=== PATIENT | female | born 1935 | race Caucasian/White ===

== ENCOUNTER 2016-06-19 20:38 | Emergency (ER) | payer MEDICARE ==
--- NOTE | 2016-06-19 21:04 | UC ---
Cardiac HPI - HPI Summary HPI Summary: The patient comes in today for: 1. Chest pain/jaw pain/rapid pulse: Onset: 2 hours ago. Palliative/provocative: Nothing makes her symptoms better or worse. Quality: 'heartburn" retrosternal associated with left jaw pain. Region: Retrosternal and left jaw. Severity: 0/10 Time: The "heartburn and jaw pain" lasted 5-10 minutes. Associated symptoms: History of atrial fibrillation. Aspirin: Taken--81 mg When the daughter was there, the pulse on the pulse ox was 102. No previous heart disease. Shortness of breath:none Dizziness: None. The [id number] called her regular physician who told her to come in to have an EKG. * - History of Current Complaint Stated Complaint: RAPID PULSE,JAW TIGHTNESS Time Seen by Provider: 06/19/16 20:56 Hx Obtained From: Patient, Family/Administration Vice President - Allergy/Home Medications Allergies/Adverse Reactions: Allergies Allergy/AdvReac Type Severity Reaction Status Date / Time Codeine Allergy See Comment Verified 06/19/16 21:02 Granisetron [From Kytril] Allergy GI Upset Verified 06/19/16 21:02 Levofloxacin [From Levaquin] Allergy Rash Verified 06/19/16 21:02 Meperidine [From Demerol HCl] Allergy Vomiting Verified 06/19/16 21:02 Prochlorperazine Allergy Swelling Verified 06/19/16 21:02 [From Compazine] Promethazine [From Phenergan] Allergy GI Upset Verified 06/19/16 21:02 ANTINAUSEA MEDS Allergy Severe "MAKES ME Uncoded 06/19/16 21:02 SICK" FLOROQUINOLONES Allergy Severe TENDON Uncoded 06/19/16 21:02 RUPTURE OPIOIDS Allergy Severe "MAKES ME Uncoded 06/19/16 21:02 SICK" Home Medications: Home Medications Aspirin [Aspirin 81 MG TAB] 81 mg PO PRN 06/19/16 [History] Supplements* 06/19/16 [History] PMH/Surg Hx/FS Hx/Imm Hx Previously Healthy: No Endocrine History Of: Denies: Diabetes, Thyroid Disease, Hyperthyroidism, Hypothyroidism, Dyslipidemia Cardiovascular History Of: Denies: Cardiac Disorders, Hypertension, Pacemaker/ICD, Myocardial Infarction , Congestive Heart Failure, Atrial Fibrillation, Deep Vein Thrombosis, Bleeding Disorders Respiratory History Of: Denies: COPD, Asthma, Bronchitis, Pneumonia, Pulmonary Embolism GI/ History Of: Denies: Gastroesophageal Reflux, Ulcer, Gastrointestinal Bleed, Gall Bladder Disease, Kidney Stones, Diverticulitis, Renal Disease, Urosepsis Neurological History Of: Reports: Migraine Denies: TIA, CVA, Dementia, Seizures Psychological History Of: Denies: Anxiety, Depression, Bipolar Disorder, Schizophrenia, Post Traumatic Stress Disorder Cancer History Of: Reports: Colorectal Cancer Denies: Lung Cancer, Breast Cancer, Prostate Cancer, Cervical Cancer Other History Of: Negative For: HIV, Hepatitis B, Hepatitis C, Anticoagulant Therapy - Surgical History Surgical History: Yes Surgery Procedure, Year, and Place: Bowel Resection. Colon Surgery x 3. Hysterectomy, appendectomy, lymph node removed from abd. - Family History Known Family History: Negative: Cardiac Disease, Hypertension - Social History Alcohol Use: None Substance Use Type: None Smoking Status (MU): Never Smoked Tobacco - Immunization History Most Recent Tetanus Shot: within 10 years Review of Systems Constitutional: Negative Skin: Negative Eyes: Negative ENT: Negative Respiratory: Negative Cardiovascular: Negative Gastrointestinal: Negative Genitourinary: Negative All Other Systems Reviewed And Are Negative: Yes Physical Exam Triage Information Reviewed: Yes Appearance: Well-Appearing, No Pain Distress, Well-Nourished Vital Signs Reviewed: Yes Eyes: Positive: Conjunctiva Clear. Negative: Discharge ENT: Positive: Hearing grossly normal. Negative: Pharyngeal erythema, Nasal congestion, Nasal drainage, TM bulging, TM dull, TM red, Tonsillar swelling, Tonsillar exudate Dental: Negative: Gross Decay/Caries @, Dental Fracture @ Neck: Positive: Supple, Nontender, No Lymphadenopathy. Negative: Nuchal Rigidity Respiratory: Positive: Lungs clear, No respiratory distress, No accessory muscle use. Negative: Crackles, Wheezing Cardiovascular: Positive: RRR, No Murmur Abdomen Description: Positive: Nontender, No Organomegaly, Soft. Negative: Distended, Guarding Musculoskeletal: Positive: Strength Intact, ROM Intact, No Edema Neurological: Positive: Alert, Muscle Tone Normal Psychological: Positive: Age Appropriate Behavior, Consolable Skin: Negative: rashes, breakdown - Assessment/Plan Course Of Treatment: Patient and her [id number] were told that it is reassuring that she does not have any chest pain at this time, but am concerned that she may be at risk for CAD. The patient was told that I don't know for sure what caused her chest. pain. The patient was also told that there are many causes for chest pain--. some which are benign and some which are life- threatening. Furthermore, it was. mentioned that the life-threatening causes of chest pain can present with. minimal, atypical, or even no symptoms. Becasue of these facts and the fact. that we don't have here all the testing methods commonly used to assess chest. pain, and their timely resuts, my recommendation is for the patient to go to. the [facility] ([facility] [place]. However, she did not want to do this. She wanted to go home and return if she has a re- occurence of chest pain. - Clinical Impression Provider Diagnoses: Chest pain, resolved. Discharge - Discharge Plan Condition: Stable Disposition: AGAINST MEDICAL ADVICE Patient Education Materials: Angina (ED), Chest Pain (ED) Referrals: Zelda Ibarra MD [Primary Care Provider] - As Soon As Possible (If you are not going to the ER as recommended, please reconsider going to the ER if you have a re-occurence of chest or jaw pain. If you do well, please contact your primary are provider as soon as you can for a follow-up evaluation.)
[2016-06-19 21:51] VITALS: BP 189/103
== END 2016-06-19 22:10 | disposition left against medical advice (07) ==
LOC: UCEAST 20:38
DX: R07.9 Chest pain, unspecified (principal); Z88.3 Allergy status to other anti-infective agents; Z88.5 Allergy status to narcotic agent; Z79.82 Long term (current) use of aspirin; Z85.038 Personal history of other malignant neoplasm of large intestine
CPT/HCPCS: 93005; 99212; G0463

== ENCOUNTER 2016-06-19 22:27 | Emergency (ER) | payer MEDICARE ==
[2016-06-19] MEDS ORDERED: Aspirin EC TAB* 325 MG PO ONE (23:29)
[2016-06-19 23:41] LABS: Hematocrit 40 % (35-47); Hemoglobin 13.2 g/dl (12.0-16.0); Mean Corpuscular HGB Conc 33 g/dl (31-36); Mean Corpuscular Hemoglobin 29 pg (27-31); Mean Corpuscular Volume 88 fL (80-97); Mean Platelet Volume 9 um3 (7.4-10.4); Red Blood Count 4.55 10^6/ul (4.0-5.4); Red Cell Distribution Width 14 % (10.5-15); White Blood Count 7.2 10^3/ul (3.5-10.8)
[2016-06-20 00:02] LABS: Albumin 4.1 g/dL (3.2-5.2); BUN/Creatinine Ratio 34.4 (8-20); Calcium 9.3 mg/dL (8.6-10.3); EGFR African American 71.6 (>60); EGFR Non-African American 55.6 (>60); Globulin 3.1 g/dL (2-4); Potassium 3.9 mmol/L (3.5-5.0); Total Bilirubin 0.4 mg/dL (0.2-1.0); Total Protein 7.2 g/dL (6.4-8.9)
[2016-06-20 00:19] LABS: TSH (Thyroid Stimulating Horm) 3.55 mcIU/mL (0.34-5.60)
[2016-06-20 07:10] VITALS: BP 122/81
--- NOTE | 2016-06-20 07:32 | RAD ---
INDICATION: Chest pain. COMPARISON: Comparison is made with a prior chest x-ray study from July 30, 2010. TECHNIQUE: A portable view of the chest was obtained. FINDINGS: The heart is within normal limits in size. The thoracic aorta is mildly tortuous and unchanged. The lungs are clear. No pleural effusion is seen. IMPRESSION: NO EVIDENCE FOR ACUTE DISEASE.
--- NOTE | 2016-06-25 20:49 | ED ---
I, Ethel Up, scribed for Yazmin Yoon MD on 06/20/16 at 0557 . Progress - Progress Note Progress Note: Re-Eval at 0553 - Pt was suffering from heartburn, left jaw pain. Transferred from urgent care, evaluated in ED by A Riki, signed out at change of shift awaiting 2nd troponin. Pt is pain free at this time. Re-Eval at 0730 - Discussed neg lab results and plan to discharge pt home. Course/Dx - Diagnoses Provider Diagnoses: Chest pain in adult, Hypertension The documentation as recorded by the scribe, Ethel Up accurately reflects the service I personally performed and the decisions made by me, Yazmin Yoon MD.
== END 2016-06-20 08:03 | disposition home or self-care (01) ==
LOC: ED 22:27
DX: R07.9 Chest pain, unspecified (principal); I10 Essential (primary) hypertension
CPT/HCPCS: 36415; 71010; 80053; 83605; 83735; 84443; 84484; 85025; 85379; 93005; 99282

== ENCOUNTER 2016-08-27 19:15 | Emergency (ER) | payer MEDICARE ==
[2016-08-27] MEDS ORDERED: Ondansetron INJ* 2 MG/ML VIAL IV ONE (19:30)
[2016-08-27] MEDS ORDERED: NS 0.9% 500 ML BAG* 500 ML IV SCH (20:00)
[2016-08-27 20:08] LABS: Hematocrit 43 % (35-47); Hemoglobin 14.2 g/dl (12.0-16.0); Mean Corpuscular HGB Conc 33 g/dl (31-36); Mean Corpuscular Hemoglobin 30 pg (27-31); Mean Corpuscular Volume 90 fL (80-97); Mean Platelet Volume 9 um3 (7.4-10.4); Red Blood Count 4.74 10^6/ul (4.0-5.4); Red Cell Distribution Width 14 % (10.5-15); White Blood Count 14.3 10^3/ul (3.5-10.8)
[2016-08-27 20:24] LABS: Albumin 4.1 g/dL (3.2-5.2); BUN/Creatinine Ratio 22.9 (8-20); C Reactive Protein 9.08 mg/L (< 5.00); Calcium 9.8 mg/dL (8.6-10.3); EGFR African American 56.4 (>60); EGFR Non-African American 43.9 (>60); Potassium 3.9 mmol/L (3.5-5.0); Total Bilirubin 0.9 mg/dL (0.2-1.0); Total Protein 7.1 g/dL (6.4-8.9)
--- NOTE | 2016-08-27 22:04 | ED ---
sonia Castorena Timothy, scribed for Haja Gutierrez MD on 08/27/16 at 1944 . GI/ HPI - HPI Summary HPI Summary: Sabiha Cho is an 81 yo female presenting to [facility] with N/V/D and abd pain since 08/26/16 evening. She states she has vomited 3x today, and that she does not know how many times she has had diarrhea, but it has been very liquid and dark and running constantly. She states she was dizzy before vomiting, but that she is always dizzy before vomiting. She denies fever. She states this is not similar to her Sx when she had C. Diff. She has not self-medicated today. Her MHx includes migraine, GERd, colorectal CA, obstructive bowel. anastamosis, arthritis, chemotherapy, C. Diff. - History of Current Complaint Chief Complaint: EDNauseaVomitDiarrh Time Seen by Provider: 08/27/16 19:26 Stated Complaint: GENERAL ILLNESS Hx Obtained From: Patient Onset/Duration: Started Hours Ago, Still Present Timing: Constant Severity: Moderate Current Severity: Moderate Location of Pain: Diffuse Associated Signs and Symptoms: Positive: Dizziness - before vomiting, baseline, Nausea, Vomiting, Diarrhea - black, watery. Negative: Fever - Allergy/Home Medications Allergies/Adverse Reactions: Allergies Allergy/AdvReac Type Severity Reaction Status Date / Time Codeine Allergy See Comment Verified 06/19/16 22:35 Granisetron [From Kytril] Allergy GI Upset Verified 06/19/16 22:35 Levofloxacin [From Levaquin] Allergy Rash Verified 06/19/16 22:35 Meperidine [From Demerol HCl] Allergy Vomiting Verified 06/19/16 22:35 Prochlorperazine Allergy Swelling Verified 06/19/16 22:35 [From Compazine] Promethazine [From Phenergan] Allergy GI Upset Verified 06/19/16 22:35 ANTINAUSEA MEDS Allergy Severe "MAKES ME Uncoded 06/19/16 22:35 SICK" FLOROQUINOLONES Allergy Severe TENDON Uncoded 06/19/16 22:35 RUPTURE OPIOIDS Allergy Severe "MAKES ME Uncoded 06/19/16 22:35 SICK" PMH/Surg Hx/FS Hx/Imm Hx Endocrine/Hematology History: Denies: Hx Anticoagulant Therapy, Hx Diabetes, Hx Thyroid Disease Cardiovascular History: Denies: Hx Congestive Heart Failure, Hx Deep Vein Thrombosis, Hx Hypertension , Hx Myocardial Infarction, Hx Pacemaker/ICD Respiratory History: Denies: Hx Asthma, Hx Chronic Obstructive Pulmonary Disease (COPD), Hx Lung Cancer, Hx Pneumonia, Hx Pulmonary Embolism GI History: Reports: Hx Gastroesophageal Reflux Disease, Hx Obstructive Bowel - current dx, Other GI Disorders - anastamosis s/p surgery/impaction s/p c-diff Denies: Hx Gall Bladder Disease, Hx Gastrointestinal Bleed, Hx Ulcer, Hx Urosepsis History: Denies: Hx Kidney Stones, Hx Renal Disease Musculoskeletal History: Reports: Hx Arthritis Sensory History: Reports: Hx Contacts or Glasses, Hx Hearing Problem - left ear Opthamlomology History: Reports: Hx Contacts or Glasses Neurological History: Reports: Hx Migraine Denies: Hx Dementia, Hx Seizures, Hx Transient Ischemic Attacks (TIA) Psychiatric History: Denies: Hx Anxiety, Hx Depression, Hx Schizophrenia, Hx Bipolar Disorder, Hx Substance Abuse - Cancer History Cancer Type, Location and Year: 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 Colon Surgery x 3. Hysterectomy, appendectomy, lymph node removed from abd. Infectious Disease History: Yes Infectious Disease History: Reports: Hx Clostridium Difficile Denies: Hx Hepatitis, Hx Human Immunodeficiency Virus (HIV), Traveled Outside the [place] in Last 30 Days - Family History Known Family History: Positive: Cardiac Disease, Other - lymphoma Negative: Hypertension, Diabetes - Social History Alcohol Use: Occasionally Substance Use Type: Reports: None Hx Tobacco Use: No Smoking Status (MU): Former Smoker Review of Systems Constitutional: Negative Negative: Fever Eyes: Negative ENT: Negative Cardiovascular: Negative Respiratory: Negative Positive: Abdominal Pain, Vomiting, Diarrhea - black, watery, Nausea Genitourinary: Negative Musculoskeletal: Negative Skin: Negative Neurological: Other - dizziness before vomiting, baseline Psychological: Normal All Other Systems Reviewed And Are Negative: Yes Physical Exam Triage Information Reviewed: Yes Vital Signs On Initial Exam: Initial Vitals Temp Pulse Resp BP Pulse Ox 97.3 F 78 16 115/43 100 08/27/16 19:21 08/27/16 19:21 08/27/16 19:21 08/27/16 19:21 08/27/16 19:21 Vital Signs Reviewed: Yes Appearance: Positive: No Pain Distress, Thin Skin: Positive: Warm Head/Face: Positive: Normal Head/Face Inspection Eyes: Positive: IVANIA ENT: Positive: Hearing grossly normal Neck: Positive: Supple Cardiovascular: Positive: RRR Abdomen Description: Positive: Nontender, No Organomegaly, Soft Bowel Sounds: Positive: Present Musculoskeletal: Positive: Strength/ROM Intact Neurological: Positive: Alert, Oriented to Person Place, Time Psychiatric: Positive: Affect/Mood Appropriate - Rafiq Coma Scale Coma Scale Total: 15 Diagnostics - Vital Signs Vital Signs Temp Pulse Resp BP Pulse Ox 08/27/16 19:21 97.3 F 78 16 115/43 100 - Laboratory Lab Results: Lab Results 08/27/16 08/27/16 08/27/16 Range/Units 20:02 20:02 20:02 WBC 14.3 H (3.5-10.8) 10^3/ul RBC 4.74 (4.0-5.4) 10^6/ul Hgb 14.2 (12.0-16.0) g/dl Hct 43 (35-47) % MCV 90 (80-97) fL MCH 30 (27-31) pg MCHC 33 (31-36) g/dl RDW 14 (10.5-15) % Plt Count 196 (150-450) 10^3/ul MPV 9 (7.4-10.4) um3 Neut % (Auto) 88.3 H (38-83) % Lymph % (Auto) 4.7 L (25-47) % Kimble % (Auto) 6.0 (1-9) % Eos % (Auto) 0.6 (0-6) % Baso % (Auto) 0.4 (0-2) % Absolute Neuts (auto) 12.6 H (1.5-7.7) 10^3/ul Absolute Lymphs (auto) 0.7 L (1.0-4.8) 10^3/ul Absolute Monos (auto) 0.9 H (0-0.8) 10^3/ul Absolute Eos (auto) 0.1 (0-0.6) 10^3/ul Absolute Basos (auto) 0.1 (0-0.2) 10^3/ul Absolute Nucleated RBC 0 10^3/ul Nucleated RBC % 0 Sodium 138 (133-145) mmol/L Potassium 3.9 (3.5-5.0) mmol/L Chloride 104 (101-111) mmol/L Carbon Dioxide 26 (22-32) mmol/L Anion Gap 8 (2-11) mmol/L BUN 27 H (6-24) mg/dL Creatinine 1.18 H (0.51-0.95) mg/dL Est GFR ( Amer) 56.4 (>60) Est GFR (Non-Af Amer) 43.9 (>60) BUN/Creatinine Ratio 22.9 H (8-20) Glucose 148 H (70-100) mg/dL Lactic Acid 2.6 H* (0.5-2.0) mmol/L Calcium 9.8 (8.6-10.3) mg/dL Total Bilirubin 0.90 (0.2-1.0) mg/dL AST 17 (13-39) U/L ALT 10 (7-52) U/L Alkaline Phosphatase 99 (34-104) U/L C-Reactive Protein 9.08 H (< 5.00) mg/L Total Protein 7.1 (6.4-8.9) g/dL Albumin 4.1 (3.2-5.2) g/dL Globulin 3.0 (2-4) g/dL Albumin/Globulin Ratio 1.4 (1-3) Lipase 12 (11.0-82.0) U/L Result Diagrams: 08/27/16 20:02 08/27/16 20:02 Lab Statement: Any lab studies that have been ordered have been reviewed, and results considered in the medical decision making process. Re-Evaluation - Re-Evaluation First Eval Re-Evaluation Time: 22:49 Change: Improved Comment: Pt is tolerating PO fluids. GIGU Course/Dx - Course Assessment/Plan: Sabiha Cho is an 81 yo female presenting to [facility] with abd pain, N/V/D since last evening, with black, watery diarrhea. Pt medication list reviewed this vist. In the ED course she received zofran for nausea control and Iv fluids. After clinical examination and review of her lab studies , she will be discharged home with N/V/D with appropriate instructions. - Diagnoses Differential Diagnoses - Female: Diarrhea, Vomiting, Other - nausea Provider Diagnoses: Nausea vomiting and diarrhea Discharge - Discharge Plan Condition: Improved Disposition: HOME Patient Education Materials: Acute Nausea and Vomiting (ED), Acute Diarrhea (ED ) Referrals: Kehinde Cline MD [Primary Care Provider] - 2 Days Additional Instructions: Please follow up with your primary care physician regarding your visit to the emergency department tonight. Return to the emergency department with any new or recurring symptoms. The documentation as recorded by the sonia nolasco Timothy accurately reflects the service I personally performed and the decisions made by me, Haja Gutierrez MD.
[2016-08-27 22:59] LABS: Urine Bacteria 1+ (Absent); Urine Bilirubin Negative (Negative); Urine Glucose Negative (Negative); Urine Nitrite Negative (Negative)
[2016-08-27 23:47] VITALS: BP 125/70
== END 2016-08-27 23:35 | disposition home or self-care (01) ==
LOC: ED 19:15
DX: R42 Dizziness and giddiness (principal); R11.2 Nausea with vomiting, unspecified; R19.7 Diarrhea, unspecified
CPT/HCPCS: 36415; 80053; 81003; 81015; 83605; 83690; 85025; 86140; 87077; 87086; 87186; 99283

== ENCOUNTER 2017-05-21 20:14 | Emergency (ER) | payer MEDICARE ==
[2017-05-21] MEDS ORDERED: Acetaminophen TAB* 325 MG PO ONE (21:21)
[2017-05-21] MEDS ORDERED: NS 0.9% 1000 ML* 1,000 ML IV ONE (21:21)
--- NOTE | 2017-05-21 21:37 | RAD ---
HISTORY: Shortness of breath COMPARISONS: June 19, 2016 VIEWS: 1: frontal portable view of the chest at 9:31 PM FINDINGS: LINES AND TUBES: None. CARDIOMEDIASTINAL SILHOUETTE: The cardiomediastinal silhouette is stable. PLEURA: The costophrenic angles are sharp. No pleural abnormalities are noted. LUNG PARENCHYMA: The lungs are clear. ABDOMEN: The upper abdomen is clear. There is no subphrenic gas. BONES AND SOFT TISSUES: No bone or soft tissue abnormalities are noted. IMPRESSION: NO ACTIVE CARDIOPULMONARY DISEASE.
[2017-05-21 22:00] LABS: ABS Basophils 0 10^3/ul (0-0.2); ABS Eosinophils 0 10^3/ul (0-0.6); ABS Lymphocytes 0.8 10^3/ul (1.0-4.8); ABS Monocytes 0.5 10^3/ul (0-0.8); ABS Neutrophils 3.2 10^3/ul (1.5-7.7); ABS Nucleated RBC 0 10^3/ul; Hematocrit 38 % (35-47); Hemoglobin 12.9 g/dl (12.0-16.0); Lymphocyte % 16.9 % (25-47); Mean Corpuscular HGB Conc 34 g/dl (31-36); Mean Corpuscular Hemoglobin 30 pg (27-31); Mean Corpuscular Volume 88 fL (80-97); Nucleated Red Blood Cells % 0.1; Platelet Count 140 10^3/ul (150-450); Red Blood Count 4.37 10^6/ul (4.0-5.4); Red Cell Distribution Width 14 % (10.5-15); White Blood Count 4.6 10^3/ul (3.5-10.8)
[2017-05-21 22:09] LABS: INR 0.9 (0.77-1.02)
[2017-05-21 22:19] LABS: EGFR Non-African American 42.5 (>60)
[2017-05-21] MEDS ORDERED: Oseltamivir CAP* 75 MG CAP PO ONE (22:42)
[2017-05-21 22:45] LABS: Urine Appearance Clear; Urine Blood 3+ (Negative); Urine Color Yellow; Urine Ketones Negative (Negative); Urine Protein Negative (Negative); Urine Specific Gravity 1.013 (1.010-1.030); Urine Urobilinogen Negative (Negative)
--- NOTE | 2017-05-21 23:28 | ED ---
Ely Castorena Rebecca, scribed for Awa Villarreal MD on 05/21/17 at 2304 . Complex/Multi-Sys Presentation - HPI Summary HPI Summary: Pt is an 82 y/o F who present to ED c/o myalgias, SOB and generalized malaise since yesterday evening. Sx aggravated and alleviated by nothing. Pt denies fever. Pt additionally cites an episode of vomiting 2 weeks ago during which she was laying in bed and coughed. She reports concern over potentially having aspirated some of that material into her lungs. - History Of Current Complaint Chief Complaint: EDGeneral Time Seen by Provider: 05/21/17 21:02 Hx Obtained From: Patient Onset/Duration: Still Present Severity Currently: Moderate - 5/10 Location: Pain At: - Myalgias Aggravating Factor(s): Nothing Alleviating Factor(s): Nothing Associated Signs And Symptoms: Positive: SOB, Other - Generalized malaise - Allergies/Home Medications Allergies/Adverse Reactions: Allergies Allergy/AdvReac Type Severity Reaction Status Date / Time MS Codeine [Codeine] Allergy See Comment Verified 05/21/17 20:31 MS Granisetron [From Kytril] Allergy GI Upset Verified 05/21/17 20:31 MS Levofloxacin Allergy Rash Verified 05/21/17 20:31 [From Levaquin] MS Meperidine Allergy Vomiting Verified 05/21/17 20:31 [From Demerol HCl] MS Prochlorperazine Allergy Swelling Verified 05/21/17 20:31 [From Compazine] MS Promethazine Allergy GI Upset Verified 05/21/17 20:31 [From Phenergan] ANTINAUSEA MEDS Allergy Severe "MAKES ME Uncoded 05/21/17 20:31 SICK" FLOROQUINOLONES Allergy Severe TENDON Uncoded 05/21/17 20:31 RUPTURE OPIOIDS Allergy Severe "MAKES ME Uncoded 05/21/17 20:31 SICK" PMH/Surg Hx/FS Hx/Imm Hx Endocrine/Hematology History: Denies: Hx Anticoagulant Therapy, Hx Diabetes, Hx Thyroid Disease Cardiovascular History: Denies: Hx Congestive Heart Failure, Hx Deep Vein Thrombosis, Hx Hypertension , Hx Myocardial Infarction, Hx Pacemaker/ICD Respiratory History: Denies: Hx Asthma, Hx Chronic Obstructive Pulmonary Disease (COPD), Hx Lung Cancer, Hx Pneumonia, Hx Pulmonary Embolism GI History: Reports: Hx Gastroesophageal Reflux Disease, Hx Obstructive Bowel - current dx, Other GI Disorders - anastamosis s/p surgery/impaction s/p c-diff Denies: Hx Gall Bladder Disease, Hx Gastrointestinal Bleed, Hx Ulcer, Hx Urosepsis History: Denies: Hx Kidney Stones, Hx Renal Disease Musculoskeletal History: Reports: Hx Arthritis Sensory History: Reports: Hx Contacts or Glasses, Hx Hearing Problem - left ear Opthamlomology History: Reports: Hx Contacts or Glasses Neurological History: Reports: Hx Migraine Denies: Hx Dementia, Hx Seizures, Hx Transient Ischemic Attacks (TIA) Psychiatric History: Denies: Hx Anxiety, Hx Depression, Hx Schizophrenia, Hx Bipolar Disorder, Hx Substance Abuse - Cancer History Cancer Type, Location and Year: 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 Colon Surgery x 3. Hysterectomy, appendectomy, lymph node removed from abd. Infectious Disease History: No Infectious Disease History: Reports: Hx Clostridium Difficile Denies: Hx Hepatitis, Hx Human Immunodeficiency Virus (HIV), Traveled Outside the [place] in Last 30 Days - Family History Known Family History: Positive: Cardiac Disease, Other - lymphoma Negative: Hypertension, Diabetes - Social History Alcohol Use: Occasionally Substance Use Type: Reports: None Hx Tobacco Use: No Smoking Status (MU): Former Smoker Review of Systems Positive: Other - Generalized malaise. Negative: Fever Positive: Shortness Of Breath, Cough - 2 weeks ago Positive: Vomiting - 2 weeks ago Positive: Myalgia All Other Systems Reviewed And Are Negative: Yes Physical Exam - Summary Physical Exam Summary: VITAL SIGNS: Reviewed. GENERAL: ~Patient is an elderly female who is lying comfortable in the stretcher. Patient is not in any acute respiratory distress. HEAD AND FACE: No signs of trauma. No ecchymosis, hematomas or skull depressions. No sinus tenderness. EYES: PERRLA, EOMI x 2, No injected conjunctiva, no nystagmus. EARS: Hearing grossly intact. Ear canals and tympanic membranes are within normal limits. MOUTH: Oropharynx within normal limits. NECK: Supple, trachea is midline, no adenopathy, no JVD, no carotid bruit, no c- spine tenderness, neck with full ROM. CHEST: Symmetric, no tenderness at palpation LUNGS: Clear to auscultation bilaterally. No wheezing or crackles. CVS: Regular rate and rhythm, S1 and S2 present, no murmurs or gallops appreciated. ABDOMEN: Soft, non-tender. No signs of distention. No rebound no guarding, and no masses palpated. Bowel sounds are normal. EXTREMITIES: FROM in all major joints, no edema, no cyanosis or clubbing. NEURO: Alert and oriented x 3. No acute neurological deficits. Speech is normal and follows commands. SKIN: Dry and warm Triage Information Reviewed: Yes Vital Signs On Initial Exam: Initial Vitals Temp Pulse Resp BP Pulse Ox 99.3 F 105 16 142/54 98 05/21/17 20:20 05/21/17 20:20 05/21/17 20:20 05/21/17 20:20 05/21/17 20:20 Vital Signs Reviewed: Yes Diagnostics - Vital Signs Vital Signs Temp Pulse Resp BP Pulse Ox 05/21/17 22:30 20 126/91 05/21/17 22:03 86 20 163/92 97 05/21/17 22:00 91 20 99 05/21/17 21:30 77 19 118/94 98 05/21/17 21:07 71/32 05/21/17 20:20 99.3 F 105 16 142/54 98 - Laboratory Lab Results: Lab Results 05/21/17 05/21/17 05/21/17 Range/Units 21:35 21:35 21:35 WBC 4.6 (3.5-10.8) 10^3/ul RBC 4.37 (4.0-5.4) 10^6/ul Hgb 12.9 (12.0-16.0) g/dl Hct 38 (35-47) % MCV 88 (80-97) fL MCH 30 (27-31) pg MCHC 34 (31-36) g/dl RDW 14 (10.5-15) % Plt Count 140 L (150-450) 10^3/ul MPV 9.0 (7.4-10.4) um3 Neut % (Auto) 70.0 (38-83) % Lymph % (Auto) 16.9 L (25-47) % [place] % (Auto) 11.5 H (0-7) % Eos % (Auto) 1.0 (0-6) % Baso % (Auto) 0.6 (0-2) % Absolute Neuts (auto) 3.2 (1.5-7.7) 10^3/ul Absolute Lymphs (auto) 0.8 L (1.0-4.8) 10^3/ul Absolute Monos (auto) 0.5 (0-0.8) 10^3/ul Absolute Eos (auto) 0 (0-0.6) 10^3/ul Absolute Basos (auto) 0 (0-0.2) 10^3/ul Absolute Nucleated RBC 0 10^3/ul Nucleated RBC % 0.1 INR (Anticoag Therapy) 0.90 (0.77-1.02) APTT 45.5 H (26.0-36.3) seconds Sodium (133-145) mmol/L Potassium (3.5-5.0) mmol/L Chloride (101-111) mmol/L Carbon Dioxide (22-32) mmol/L Anion Gap (2-11) mmol/L BUN (6-24) mg/dL Creatinine (0.51-0.95) mg/dL Est GFR ( Amer) (>60) Est GFR (Non-Af Amer) (>60) BUN/Creatinine Ratio (8-20) Glucose (70-100) mg/dL Lactic Acid (0.5-2.0) mmol/L Calcium (8.6-10.3) mg/dL Total Bilirubin (0.2-1.0) mg/dL AST (13-39) U/L ALT (7-52) U/L Alkaline Phosphatase (34-104) U/L Troponin I (<0.04) ng/mL C-Reactive Protein (< 5.00) mg/L B-Natriuretic Peptide 32 ( - 100) pg/mL Total Protein (6.4-8.9) g/dL Albumin (3.2-5.2) g/dL Globulin (2-4) g/dL Albumin/Globulin Ratio (1-3) Urine Color Urine Appearance Urine pH (5-9) Ur Specific [place] (1.010-1.030) Urine Protein (Negative) Urine Ketones (Negative) Urine Blood (Negative) Urine Nitrate (Negative) Urine Bilirubin (Negative) Urine Urobilinogen (Negative) Ur Leukocyte Esterase (Negative) Urine WBC (Auto) (Absent) Urine RBC (Auto) (Absent) Ur Squamous Epith Cells (Absent) Urine Bacteria (Absent) Urine Glucose (Negative) Influenza A (Rapid) (Negative) Influenza B (Rapid) (Negative) 05/21/17 05/21/17 05/21/17 Range/Units 21:35 21:35 22:16 WBC (3.5-10.8) 10^3/ul RBC (4.0-5.4) 10^6/ul Hgb (12.0-16.0) g/dl Hct (35-47) % MCV (80-97) fL MCH (27-31) pg MCHC (31-36) g/dl RDW (10.5-15) % Plt Count (150-450) 10^3/ul MPV (7.4-10.4) um3 Neut % (Auto) (38-83) % Lymph % (Auto) (25-47) % [place] % (Auto) (0-7) % Eos % (Auto) (0-6) % Baso % (Auto) (0-2) % Absolute Neuts (auto) (1.5-7.7) 10^3/ul Absolute Lymphs (auto) (1.0-4.8) 10^3/ul Absolute Monos (auto) (0-0.8) 10^3/ul Absolute Eos (auto) (0-0.6) 10^3/ul Absolute Basos (auto) (0-0.2) 10^3/ul Absolute Nucleated RBC 10^3/ul Nucleated RBC % INR (Anticoag Therapy) (0.77-1.02) APTT (26.0-36.3) seconds Sodium 134 (133-145) mmol/L Potassium 3.7 (3.5-5.0) mmol/L Chloride 102 (101-111) mmol/L Carbon Dioxide 24 (22-32) mmol/L Anion Gap 8 (2-11) mmol/L BUN 29 H (6-24) mg/dL Creatinine 1.21 H (0.51-0.95) mg/dL Est GFR ( Amer) 54.7 (>60) Est GFR (Non-Af Amer) 42.5 (>60) BUN/Creatinine Ratio 24.0 H (8-20) Glucose 111 H (70-100) mg/dL Lactic Acid 1.2 (0.5-2.0) mmol/L Calcium 9.1 (8.6-10.3) mg/dL Total Bilirubin 0.30 (0.2-1.0) mg/dL AST 17 (13-39) U/L ALT 7 (7-52) U/L Alkaline Phosphatase 86 (34-104) U/L Troponin I 0.01 (<0.04) ng/mL C-Reactive Protein 9.80 H (< 5.00) mg/L B-Natriuretic Peptide ( - 100) pg/mL Total Protein 6.5 (6.4-8.9) g/dL Albumin 3.6 (3.2-5.2) g/dL Globulin 2.9 (2-4) g/dL Albumin/Globulin Ratio 1.2 (1-3) Urine Color Urine Appearance Urine pH (5-9) Ur Specific [place] (1.010-1.030) Urine Protein (Negative) Urine Ketones (Negative) Urine Blood (Negative) Urine Nitrate (Negative) Urine Bilirubin (Negative) Urine Urobilinogen (Negative) Ur Leukocyte Esterase (Negative) Urine WBC (Auto) (Absent) Urine RBC (Auto) (Absent) Ur Squamous Epith Cells (Absent) Urine Bacteria (Absent) Urine Glucose (Negative) Influenza A (Rapid) Negative (Negative) Influenza B (Rapid) Positive A (Negative) 05/21/17 Range/Units 22:33 WBC (3.5-10.8) 10^3/ul RBC (4.0-5.4) 10^6/ul Hgb (12.0-16.0) g/dl Hct (35-47) % MCV (80-97) fL MCH (27-31) pg MCHC (31-36) g/dl RDW (10.5-15) % Plt Count (150-450) 10^3/ul MPV (7.4-10.4) um3 Neut % (Auto) (38-83) % Lymph % (Auto) (25-47) % [place] % (Auto) (0-7) % Eos % (Auto) (0-6) % Baso % (Auto) (0-2) % Absolute Neuts (auto) (1.5-7.7) 10^3/ul Absolute Lymphs (auto) (1.0-4.8) 10^3/ul Absolute Monos (auto) (0-0.8) 10^3/ul Absolute Eos (auto) (0-0.6) 10^3/ul Absolute Basos (auto) (0-0.2) 10^3/ul Absolute Nucleated RBC 10^3/ul Nucleated RBC % INR (Anticoag Therapy) (0.77-1.02) APTT (26.0-36.3) seconds Sodium (133-145) mmol/L Potassium (3.5-5.0) mmol/L Chloride (101-111) mmol/L Carbon Dioxide (22-32) mmol/L Anion Gap (2-11) mmol/L BUN (6-24) mg/dL Creatinine (0.51-0.95) mg/dL Est GFR ( Amer) (>60) Est GFR (Non-Af Amer) (>60) BUN/Creatinine Ratio (8-20) Glucose (70-100) mg/dL Lactic Acid (0.5-2.0) mmol/L Calcium (8.6-10.3) mg/dL Total Bilirubin (0.2-1.0) mg/dL AST (13-39) U/L ALT (7-52) U/L Alkaline Phosphatase (34-104) U/L Troponin I (<0.04) ng/mL C-Reactive Protein (< 5.00) mg/L B-Natriuretic Peptide ( - 100) pg/mL Total Protein (6.4-8.9) g/dL Albumin (3.2-5.2) g/dL Globulin (2-4) g/dL Albumin/Globulin Ratio (1-3) Urine Color Yellow Urine Appearance Clear Urine pH 5.0 (5-9) Ur Specific [place] 1.013 (1.010-1.030) Urine Protein Negative (Negative) Urine Ketones Negative (Negative) Urine Blood 3+ A (Negative) Urine Nitrate Negative (Negative) Urine Bilirubin Negative (Negative) Urine Urobilinogen Negative (Negative) Ur Leukocyte Esterase Negative (Negative) Urine WBC (Auto) Trace(0-5/hpf) (Absent) Urine RBC (Auto) 3+(>10/hpf) A (Absent) Ur Squamous Epith Cells Present A (Absent) Urine Bacteria Absent (Absent) Urine Glucose Negative (Negative) Influenza A (Rapid) (Negative) Influenza B (Rapid) (Negative) Result Diagrams: 05/21/17 21:35 05/21/17 21:35 Lab Statement: Any lab studies that have been ordered have been reviewed, and results considered in the medical decision making process. - Radiology CXR Xray Interpretation: No Acute Changes - NO ACTIVE CARDIOPULMONARY DISEASE. ED physician reviewed this radiology report. Radiology Interpretation Completed By: Radiologist Complex Multi-Symp Course/Dx Assessment/Plan: Pt is an 82 y/o F who present to ED c/o myalgias, SOB and generalized malaise since yesterday evening. Pt denies fever. Pt additionally cites an episode of vomiting 2 weeks ago during which she was laying in bed and coughed. She reports concern over potentially having aspirated some of that material into her lungs. Bloodwork and UA were done. Troponin of 0.01. CXR reveals no acute findings. In the ED course, pt received Tylenol, fluids, and Tamiflu. She will be D/C to home with Dx of Influenza A with Rx for Tamiflu and a followup with her PCP. She understands and agrees. Allergies noted. - Diagnoses Provider Diagnoses: Influenza A Discharge - Sign-Out/Discharge Documenting (check all that apply): Discharge - Discharge Plan Condition: Stable Disposition: HOME Prescriptions: Oseltamivir CAP* [Tamiflu CAP*] 75 mg PO BID #10 cap Patient Education Materials: Influenza (ED) Referrals: Kehinde Cline MD [Primary Care Provider] - 3 Days Additional Instructions: RETURN TO EMERGENCY DEPARTMENT FOR ANY NEW OR WORSENING SYMPTOMS The documentation as recorded by the Ely nolasco Rebecca accurately reflects the service I personally performed and the decisions made by , Awa Villarreal MD.
[2017-05-21 23:41] VITALS: BP 125/65
== END 2017-05-21 23:44 | disposition home or self-care (01) ==
LOC: ED 20:14
DX: J10.1 Influenza due to other identified influenza virus with other respiratory manifestations (principal); R06.02 Shortness of breath; R53.81 Other malaise; K21.9 Gastro-esophageal reflux disease without esophagitis; G43.909 Migraine, unspecified, not intractable, without status migrainosus; Z88.1 Allergy status to other antibiotic agents; Z88.5 Allergy status to narcotic agent; Z88.8 Allergy status to other drugs, medicaments and biological substances; Z87.891 Personal history of nicotine dependence
CPT/HCPCS: 36415; 71045; 80053; 81003; 81015; 83605; 83880; 84484; 85025; 85610; 85730; 86140; 87040; 87086; 87502; 96360; 99283; A9270-GY

== ENCOUNTER 2017-07-21 03:45 | Inpatient (IN) | payer MEDICARE ==
[2017-07-21] MEDS ORDERED: NS 0.9% 1000 ML* 1,000 ML IV ONE (04:23)
[2017-07-21 05:39] LABS: ABS Basophils 0 10^3/ul (0-0.2); ABS Eosinophils 0 10^3/ul (0-0.6); ABS Lymphocytes 0.6 10^3/ul (1.0-4.8); ABS Monocytes 0.4 10^3/ul (0-0.8); ABS Neutrophils 8.3 10^3/ul (1.5-7.7); ABS Nucleated RBC 0 10^3/ul; Eosinophil % 0.5 % (0-6); Hematocrit 38 % (35-47); Hemoglobin 12.8 g/dl (12.0-16.0); Lymphocyte % 6.4 % (25-47); Mean Corpuscular HGB Conc 34 g/dl (31-36); Mean Corpuscular Hemoglobin 29 pg (27-31); Mean Corpuscular Volume 87 fL (80-97); Mean Platelet Volume 8.9 um3 (7.4-10.4); Nucleated Red Blood Cells % 0; Platelet Count 177 10^3/ul (150-450); Red Blood Count 4.35 10^6/ul (4.0-5.4); Red Cell Distribution Width 15 % (10.5-15); White Blood Count 9.4 10^3/ul (3.5-10.8)
[2017-07-21 05:50] LABS: EGFR Non-African American 59.8 (>60)
[2017-07-21 06:13] LABS: Urine Appearance Clear; Urine Blood Negative (Negative); Urine Color Straw; Urine Ketones Trace (Negative); Urine Protein Negative (Negative); Urine Specific Gravity 1.005 (1.010-1.030); Urine Urobilinogen Negative (Negative)
[2017-07-21] MEDS ORDERED: Ondansetron INJ* 2 MG/ML VIAL IV ONE (08:35)
[2017-07-21] MEDS ORDERED: Ondansetron INJ* 2 MG/ML VIAL IV PRN (08:37)
--- NOTE | 2017-07-21 08:38 | ED ---
IJustine Gabriel, scribed for Anam Coreas MD on 07/21/17 at 0806 . Progress - Progress Note Progress Note: This patient is a 82 female c/o ABD that was signed out from Dr. Santacruz awaiting CT ABD/pelvis result. CT reveals per radiology, findings may represent enteritis with associated partial or early small bowel obstruction. Re-Evaluation - Re-Evaluation First Eval Re-Evaluation Time: 08:04 Change: Improved Comment: The patient's pain has resolved and she states she is feeling better. She does sill report nausea. Course/Dx - Course Course Of Treatment: This patient was signed out by Dr. Conde to follow the abdomen and pelvic CT since he thinks that the patient has a small bowel obstruction. Abdomen pelvis CT impression shows a partial or early small bowel obstruction. At this time I discussed my findings and results with Dr. Worthy works at the patient for admission. The patient is hemodynamically stable and she is alert and oriented 3. - Diagnoses Provider Diagnoses: Partial small bowel obstruction - Provider Notifications Discussed Care Of Patient With: Wanda Nicolas Time Discussed With Above Provider: 08:34 Instructed by Provider To: Admit As Observation Discharge - Sign-Out/Discharge Documenting (check all that apply): Discharge/Admit/Transfer - Discharge Plan Condition: Fair Disposition: ADMITTED TO [facility] Referrals: Kehinde Cline MD [Primary Care Provider] - - Billing Disposition and Condition Condition: FAIR Disposition: [facility] [place] The documentation as recorded by the Justine nolasco Gabriel accurately reflects the service I personally performed and the decisions made by me, Anam Coreas MD.
--- NOTE | 2017-07-21 09:08 | RAD ---
CLINICAL HISTORY: Right lower quadrant pain. Relevant surgical history includes bowel resection, "colon surgery x3", hysterectomy and appendectomy COMPARISON: CT abdomen pelvis dated June 04, 2012 TECHNIQUE: Noncontrast CT examination of the abdomen and pelvis from the lung bases through the initial tuberosities. FINDINGS: VISUALIZED LUNG BASES: The visualized lung bases are grossly clear. There is no pleural effusion. ABDOMEN AND PELVIS: Evaluation of the solid organs and vasculature is limited without intravenous contrast. In the right lobe of the liver there is an 8 mm hypoattenuating focus with a Hounsfield unit compatible with a cyst. The liver is otherwise homogenous in attenuation. The spleen, pancreas and adrenal glands are grossly normal in appearance. The gallbladder is normal. The right kidney is normal in appearance without focal mass, calcification or signs of hydronephrosis. There is been interval development of a moderate amount of left-sided hydronephrosis. No obstructing stone or mass lesion is seen to account for this appearance. In the left hemiabdomen the small bowel is dilated up to 2.7 cm in diameter. There are scattered air-fluid levels but no nondependent gas is identified the wall. More distally the small bowel is decompressed. There is gas and stool seen in the remaining colon. There is no free intraperitoneal air. There is no gross retroperitoneal or mesenteric lymphadenopathy. The uterus is surgically absent. The coarsely calcified abdominal aorta and iliac arteries are normal in course and diameter. There is dextroconvex curvature of the lumbar spine with the apex at the L1 vertebral body. Multilevel degenerative change of the lumbar spine includes loss of intervertebral disc height and multilevel vacuum disc phenomenon. In the subcutaneous tissue of the left gluteus is a 9 mm hypoattenuating focus with a Hounsfield unit greater than that of a simple cyst (image 72 of 81). IMPRESSION: 1. In the left hemiabdomen there are top normal loops of small bowel measuring up to 2.6 cm in diameter exhibiting scattered air-fluid levels with decompressed small bowel more distally and gas and stool in the remaining colon. The appearance of the bowel is not substantially different from the June 04, 2012 CT examination. The patient could be experiencing exacerbation of a chronic partial small bowel obstruction. 2. Interval development of left renal hydronephrosis that was not seen on the 2013 CT examination without identification of a renal calculus or other obstructing lesion. Please correlate to signs and symptoms of obstructive uropathy. 3. Likely small sebaceous cysts at the left perirectal buttock. Please correlate to physical examination and any focal tenderness. 4. Chronic, degenerative and iatrogenic findings as described in the body of the report unlikely to be directly responsible for the patient's current presentation..
[2017-07-21] MEDS: NS 0.9% 1000 ML* 1,000 ML IV SCH ×2 (10:12→19:59)
--- NOTE | 2017-07-21 12:25 | RAD ---
INDICATION: Left-sided hydronephrosis COMPARISON: CT July 21, 2017 TECHNIQUE: Longitudinal and transverse scans of the kidneys were obtained. Examination is limited due to bowel gas. FINDINGS: Left kidney: The left kidney is diminutive measuring 8.1 x 4.6 x 3.9 cm. There is no focal parenchymal mass There is moderate hydronephrosis. Other: A left ureteral jet is not documented IMPRESSION: MODERATE LEFT-SIDED HYDRONEPHROSIS. ABSENT LEFT URETERAL JET
[2017-07-21] MEDS ORDERED: hydrALAZINE IV* 20 MG/ML VIAL IV SLOW PU PRN (13:06)
[2017-07-21] MEDS: Heparin VIAL(*) 5000 UNITS/ML VIAL (FIVE THOUSAND) SUBCUT SCH ×2 (13:37→21:49)
[2017-07-21] MEDS: Pantoprazole IV* 40 MG IV SCH (13:38)
--- NOTE | 2017-07-21 14:08 | HP ---
HISTORY AND PHYSICAL: DATE OF ADMISSION: 07/21/17 PROVIDER: Frank Green NP ATTENDING PHYSICIAN: Dr. Pathak * (report dictated by Frank Green NP). PRIMARY CARE PROVIDER: Dr. Saez. CHIEF COMPLAINT: Abdominal pain and vomiting. HISTORY OF PRESENT ILLNESS: Ms. Cho is an 82-year-old female with a past medical history of metastatic colon cancer with mets to the lung and liver in 1998, who is status post colon resection with chemo and radiation, history of small bowel obstruction, history of recurrent C. diff and history of chronic back pain, who presents to the emergency department with report of abdominal pain with nausea and vomiting starting last evening. Ms. Cho reports that yesterday morning she awoke with vague symptoms of not feeling well with some diffuse abdominal bloating and some twinges of "intestinal pain." She reports she went to bed last night, having faint nausea and only ate rice and drank tea last night before bed. She reports that she woke up around 11 p.m. with more diffuse upper abdominal pain radiating to her right lower quadrant. She states she was able to fall asleep at that time and then woke up at 1 a.m. and reports that she vomited profusely. Calling the ambulance and coming to the emergency department around 2 a.m. for further evaluation. She reports that she did vomit in the emergency department 2 times this morning, but has not vomited since approximately 8:30 this morning. She continues to have abdominal bloating and some diffuse upper quadrant pain, but states that overall this feels much better than when she arrived to the emergency department. She currently denies any nausea. No fevers or chills. She had a normal bowel movement yesterday morning and denies any recent diarrhea. She is currently not passing any flatulence. In the emergency department, she underwent an abdomen and pelvis CAT scan which shows "on the left lalita-abdomen, there are top normal loops of small bowel measuring up to 2.6 cm in diameter exhibiting scattered air fluid levels with decompressed small bowel more distally and gas and stool remaining in the colon. Appearance of the bowel is not essentially different from the June 2012 CT examination. The patient could be experiencing exacerbation of her chronic partial small bowel obstruction." As well, the CAT scan is showing an " interval development of a left renal hydronephrosis that was not seen in 2013 CAT scan without identification of renal calculus or other obstructing lesion." The patient reports that she had noted abnormal renal function last summer in which her primary was following. She did not have any imaging at that time and it was unclear why her creatinine had risen at that time per the patient. It is noted in May 2017, she had an elevated creatinine, but at that time she was seen in the emergency department and was diagnosed with influenza. Currently, her creatinine is normal on evaluation today. Her urinalysis is unremarkable. Currently, the patient's sdomqjad-eb-uag is sitting at the bedside, reports she looks much better than she did several hours ago. No other complaints at this time. The patient was diagnosed with influenza B in May 2017 in which several weeks later she was treated for an upper respiratory infection with a Z-Leland. She reports since that time she has been feeling well and has been at her baseline health which is fairly active. She continues to drive and grocery shops for herself and visits with family. PAST MEDICAL HISTORY: 1. History of stage IV colon cancer in 1998 with metastasis to the lung and liver, status post radiation, chemo, and bowel resection. Currently follows with Dr. Cho and is deemed as "cancer free." 2. History of recurrent C. diff. 3. Back pain. CURRENT MEDICATIONS: Multivitamin. ALLERGIES: LEVAQUIN, COMPAZINE, CODEINE, ZOFRAN, GRANISETRON, DEMEROL, PHENERGAN, ALL ANTINAUSEA MEDICATIONS, FLUOROQUINOLONES, OPIATES. FAMILY HISTORY: The patient's mother had a history of Hodgkin's lymphoma, at age 76. Father in his 60s due to heart disease. Her paternal grandmother in concentration camp. Maternal grandmother of pancreatic cancer in her 60s. SOCIAL HISTORY: A 30-year history of smoking up to 3 packs per day, quitting in 1986. Rare alcohol use. The patient is . She lives alone. Her healthcare proxy is Felisha Hoffmann, phone number [phone] or Elaina Rockwell, [phone]. The patient is a DNR. REVIEW OF SYSTEMS: A 14-point review of systems was performed. All the pertinent positives and negatives are mentioned in the history of present illness. Otherwise are negative. PHYSICAL EXAMINATION GENERAL APPEARANCE: A well-developed 82-year-old female, alert and oriented x3 , in no acute distress. VITAL SIGNS: Temperature 98.1, heart rate 80, respirations 18, pulse oximetry 100% on room air, and blood pressure 158/86. HEENT: Head is normocephalic, atraumatic. Pupils are equal and reactive to light. Oropharynx is clear. Dry mucous membranes. NECK: Supple. LUNGS: Clear to auscultation bilaterally. Good aeration throughout. CARDIAC: S1 and S2. Regular rate and rhythm. No murmur, rub, or gallop appreciated. No lower extremity edema noted. ABDOMEN: Slightly distended, soft, right lower quad tenderness. No rebound tenderness. No guarding. Hypoactive bowel sounds. MUSCULOSKELETAL: No clubbing, cyanosis, or edema. Full range of motion in all extremities. Strength is 5/5 throughout. SKIN: Warm, pink, and dry. On the left perirectal area, there is a small 5 to 7 mm raised area which is non-fluctuating and nontender. NEUROLOGIC: Cranial nerves II through XII grossly intact. No focal deficits noted. LABORATORY DATA AND DIAGNOSTIC STUDIES: WBC is 9.4, RBC 4.35, Hgb 12.8, HCT 38 , MCV 87, MCH 29, MCHC 34, platelet count 177. Sodium 139, potassium 3.8, chloride 107, carbon-dioxide 23, anion gap 9, BUN 23, creatinine 0.90, glucose 134, lactic acid 1.2, calcium 9.2. Total bilirubin 0.70, AST 15, ALT 8, alkaline phosphatase 101, total protein 6.4, albumin 3.4, lipase 16. CT abdomen and pelvis without contrast. Impression: 1. "In the left lalita-abdomen, there are top normal loops of small bowel measuring up to 2.6 cm in diameter exhibiting scattered air fluid levels with decompressed small bowel more distally and gas and stool in the remaining colon. The appearance of the bowel was not seemingly any different from the 06/13 CT examination. The patient could be experiencing exacerbation of chronic partial small bowel obstruction. 2. Interval development of left renal hydronephrosis that was not seen in 2013 CT scan without identification of renal calculus or obstructing lesion. Please correlate the signs and symptoms to obstructive uropathy. 3. Likely small sebaceous cyst at the left perirectal buttocks. Please correlate to physical examination for any focal tenderness. 4. Chronic degenerative and iatrogenic findings as described in the body of the report, unlikely to be directly responsive to the patient's current presentation." ASSESSMENT AND PLAN: Ms. Cho is an 82-year-old female with a past medical history of colon cancer with mets to the lung and liver, treated with colon resection, chemo and radiation, history of recurrent Clostridium difficile , history of small bowel obstruction and history of back pain, who presents to the emergency department with abdominal pain, nausea and vomiting, found to have a small bowel obstruction on CT. 1. Small bowel obstruction. The patient already appears to be doing better than admission. She has had no further nausea or vomiting since early this morning. She has not been given any antiemetics as she is allergic to all medications. She has hypoactive bowel sounds and reports no flatulence at this time. Plan for n.p.o. with bowel rest. Normal saline at 100 mL an hour. At this point, we will hold off on an NG tube and just continuing to monitor her symptoms. If she has recurrence of vomiting, we will place NG tube. There appears to be no reoccurrence of tumor on her CT scan. Most likely this is possible exacerbation of chronic small bowel obstruction. I have asked for the surgical team for a consultation which is pending at the time of dictation. 2. Left renal hydronephrosis. Unclear etiology at this point. On CT scan, there was no identification of renal calculus or other obstructing lesion. The urinalysis is unremarkable. The patient does report last August or October, she had an elevation in her creatinine and it was unknown what the cause, but she did not have any imaging at that time and that resolved on its own. We will obtain left renal ultrasound and if there is an abnormality, we will contact Urology to discuss. 3. Back pain, currently well controlled. 4. DVT prophylaxis. Heparin subcu. 5. History of colon cancer with mets to the liver and lung. Per patient, she follows with Dr. Cho in which she sees once a year. Her last followup visit was within the last few months and she has been deemed cancer free at this point. 6. Fluids, electrolytes, and nutrition. Normal saline at 100 mL an hour. N.p.o. 7. Code status. DNR. 8. Disposition. Inpatient with small bowel obstruction. TIME SPENT: Approximately 60 minutes was spent on this history and physical. FRANK GREEN, [place] [id number]/[facility] #: [id number] HERMELINDA
--- NOTE | 2017-07-21 20:38 | PN ---
Progress Note - Progress Note Date of Service: 07/21/17 SOAP: Subjective: Patient seen and examined Care reviewed with JIM Ramon She is feeing better and has no further nausea, pain almost gone Objective: Her abdomen is soft and slightly distended. Bowel sounds are present and hyperactive but not high pitched or tinkling. There is no tenderness CT scan reviewed Assessment: SBO most likely secondary to intra-abdominal adhesions, appears to be improving Plan: Continue NPO-hold off on NGT IVF Care plan discussed with patient.
--- NOTE | 2017-07-22 01:34 | CONS ---
CC: Dr. Saez at [facility]; Dr. Jan Cho; JIM Serrano; [facility].* SURGICAL CONSULT NOTE: DATE OF CONSULT: 07/21/17 ATTENDING SURGEON: Dr. Lalito Willett. CHIEF COMPLAINT: Small bowel obstruction. HISTORY OF PRESENT ILLNESS: This is an 82-year-old female status post multiple abdominal surgeries who began to experience upper abdominal discomfort in the afternoon and evening yesterday, 07/20/17. This was associated with bloating. She did have some white rice and tea in the evening and slept in her chair and then upon awakening around 11 p.m., vomited; pain continued to increase. She had further vomiting (undigested food) and came to the emergency department. She had had a normal bowel movement earlier in the day on 07/20/17. She denies any diarrhea. No hematemesis. No fever or chills. At the present time, she denies nausea or vomiting (has not vomited since 08:30 this morning) and also denies pain. She has been passing flatus during the day today. She denies abdominal distention at the present time. See below for past surgeries and medical history. PAST MEDICAL HISTORY: Colon cancer (underwent transverse colon resection and subsequent surgery for additional lymph node dissection, she was treated with various chemotherapy agents and she states radiation therapy as well). There are chart notes stating that she had liver and lung metastases though I am not certain if this was confirmed to be metastatic disease. She is followed regularly by Dr. Cho and has been told that she is currently cancer free. She has chronic low back pain related to combination of scoliosis, spinal stenosis, and lumbar degenerative disk disease. She has had at least 2 episodes of Clostridium difficile colitis. She is not absolutely certain when the last episode was, though I do not see anything in the chart record indicating positive C. diff. since 2013. She was admitted and treated conservatively for an SBO in 2013 with resolution. PAST SURGICAL HISTORY: Previous surgeries include colon surgeries as noted above, PowerPort placement and subsequent removal, total abdominal hysterectomy with BSO, and incidental appendectomy in 1994 for what turned out to be benign disease. CURRENT MEDICATIONS: Multivitamins. ALLERGIES: Multiple drug allergies (see details in her chart record). FAMILY HISTORY: As per the admission history and physical. SOCIAL HISTORY: As per the admission history and physical. REVIEW OF SYSTEMS: General: She reports approximately a 5-pound or slightly more weight loss over recent months. She did have a "stomach bug" back in May followed by an episode of influenza and then subsequent URI treated with Z -GRICEL, which she states took away her appetite, which has very slowly been coming back. Cardiovascular: She has been mildly hypertensive in the past, but not to the point of requiring treatment. She did have an echocardiogram done within the past year or so that she states was normal. Respiratory: No shortness of breath or cough. GI: As above per HPI. Last colonoscopy in [address] Steen with no plans for further surveillance. : The patient was noted some-time within the past year to have an elevated creatinine. She adapted a low protein diet and states that her creatinine normalized. There was no imaging done at that time. Endocrine: No diabetes or thyroid dysfunction. The remainder of review of systems is negative other than per the admission history and physical. PHYSICAL EXAM: Height 5 feet 3 inches, weight 130 pounds by history, temperature 98.7, blood pressure ranging from 140 to 217/69 to 114, pulse ranging from 72 to 117, respirations ranging from 16 to 20, room air saturation 98%. General: Well- nourished, well-developed female, in no acute distress. She appears comfortable. Skin: Warm and dry. No suspicious rashes or lesions though complete skin survey not performed. HEENT: Pupils equal, round, and reactive. EOMs intact. Conjunctivae pink. Oropharynx: Teeth in good repair. No intraoral lesions. Mucous membranes slightly dry. Neck: No lymphadenopathy in the cervical, supraclavicular or axillary regions. No palpable thyromegaly or masses. Heart: Regular rate and rhythm. No murmur appreciated. Lungs: Clear to auscultation. No rales or wheezes. Abdomen: Flat, nondistended. A well-healed midline incision. Bowel sounds present and relatively normal. Soft and nontender to palpation. No palpable masses or organomegaly. No tympany. No palpable abdominal wall or inguinal hernias. Genitalia and rectal not done. Back: No spinous process tenderness. She does have some deformity of the lumbar spine. Extremities: No edema. Feet are warm. Neurological: Grossly intact. Specific testing not performed. DIAGNOSTIC STUDIES/LAB DATA: Laboratory of note: White blood cell count 9400 with a slight left shift, hemoglobin 12.8. Her basic metabolic panel is normal. Glucose 134. Lactic acid normal at 1.2. Liver functions and lipase are normal. Urinalysis remarkable for specific gravity of 1.[address]. Noncontrast CT of the abdomen and pelvis was reviewed personally showing moderate left hydronephrosis (hydroureter) with no apparent stone, left- sided small bowel loops are dilated up to approximate diameter of 2.7 with decompressed distal small bowel loops. A renal ultrasound confirmed the presence of moderate left hydronephrosis and an absent ureteral jet. IMPRESSION: Possible small bowel obstruction, apparently resolving. PLAN/RECOMMENDATIONS: Case was discussed with Dr. Willett who will also review findings and plans. At this point, the patient may be followed clinically as she appears to be improving. The source of the hydronephrosis will be investigated further, otherwise medical management per the hospitalist team. JIM SERRANO [id number]/[facility] #: [id number] MTDD
[2017-07-22] MEDS: Heparin VIAL(*) 5000 UNITS/ML VIAL (FIVE THOUSAND) SUBCUT SCH ×3 (05:17→21:43)
[2017-07-22] MEDS: NS 0.9% 1000 ML* 1,000 ML IV SCH ×2 (05:31→15:36)
[2017-07-22 05:42] LABS: ABS Basophils 0 10^3/ul (0-0.2); ABS Eosinophils 0.2 10^3/ul (0-0.6); ABS Lymphocytes 1.4 10^3/ul (1.0-4.8); ABS Monocytes 0.5 10^3/ul (0-0.8); ABS Nucleated RBC 0 10^3/ul; Hematocrit 31 % (35-47); Hemoglobin 10.5 g/dl (12.0-16.0); Lymphocyte % 27.8 % (25-47); Mean Corpuscular HGB Conc 34 g/dl (31-36); Mean Corpuscular Hemoglobin 30 pg (27-31); Mean Corpuscular Volume 88 fL (80-97); Mean Platelet Volume 8.6 um3 (7.4-10.4); Nucleated Red Blood Cells % 0; Platelet Count 141 10^3/ul (150-450); Red Blood Count 3.54 10^6/ul (4.0-5.4); Red Cell Distribution Width 15 % (10.5-15); White Blood Count 5.2 10^3/ul (3.5-10.8)
[2017-07-22 06:01] LABS: EGFR Non-African American 70.5 (>60)
--- NOTE | 2017-07-22 09:01 | RAD ---
Indication: Reassess LEFT hydronephrosis. Comparison: July 21, 2017 ultrasound and July 21, 2017 CT. Technique: LEFT renal ultrasound. Report: Limited acoustic window to the LEFT kidney due to large body habitus and scoliosis. 9.7 x 4.8 x 3.6 cm LEFT kidney is remarkable for severe pelvicaliectasis without significant change compared with the July 21, 2017 CT. Normal cortical echogenicity. No conspicuous stones or focal renal lesions. No LEFT ureteral jet visible at the urinary bladder during 5 minutes of observation. The urinary bladder is largely decompressed. IMPRESSION: No significant change in severe LEFT hydronephrosis. No LEFT ureteral jet visible at the urinary bladder during 5 minutes of observation.
--- NOTE | 2017-07-22 13:09 | PN ---
Progress Note - Progress Note Date of Service: 07/22/17 SOAP: Subjective: Pt seen at 0815 this morning She feels much better-continues to pass flatus and no abdominal pain or N/V Objective: Temp Pulse Resp BP Pulse Ox 98.2 F 75 14 140/81 98 07/22/17 03:21 07/22/17 03:21 07/22/17 07:41 07/22/17 12:15 07/22/17 03:21 PEX: Abd is soft and slightly distended. Bowel sounds are present, hyperactive but not high pitched or tinkling. No tenderness. Assessment: SBO-appears to be resolving Plan: Start clear liquids, observe
[2017-07-22] MEDS: Pantoprazole IV* 40 MG IV SCH (14:02)
--- NOTE | 2017-07-22 17:18 | PN ---
Subjective Date of Service: 07/22/17 Interval History: Pt states she is feeling well. No abdominal pain after starting clears today. She does feel her abdomen is slightly distended. She is passing gas. No dizziness with walking. Objective Active Medications: Heparin Sodium (Porcine) (Heparin Vial(*)) 5,[address] [facility] Last Admin: 07/22/17 14:02 Dose: 5,000 units Hydralazine HCl (Apresoline Iv*) 5 mg IV SLOW PU Q6H PRN PRN Reason: BLOOD PRESSURE Last Admin: 07/21/17 15:38 Dose: 5 mg Sodium Chloride (Ns 0.9% 1000 Ml*) 1,000 mls @ 100 mls/hr IV PER RATE [facility] Last Admin: 07/22/17 15:36 Dose: 100 mls/hr Pantoprazole Sodium (Protonix Iv*) [address] [facility] Last Admin: 07/22/17 14:02 Dose: 40 mg Vital Signs - 8 hr 07/22/17 07/22/17 07/22/17 11:21 12:15 15:22 Temperature 98.2 F 97.6 F Pulse Rate 72 66 Respiratory 17 18 Rate Blood Pressure 190/95 140/81 144/83 (mmHg) O2 Sat by Pulse 98 100 Oximetry Oxygen Devices in Use Now: None Appearance: Elderly female sitting up in bed, NAD Eyes: No Scleral Icterus Ears/Nose/Mouth/Throat: Mucous Membranes Moist Respiratory: Symmetrical Chest Expansion and Respiratory Effort, Clear to Auscultation Cardiovascular: NL Sounds; No Murmurs; No JVD, RRR, No Edema Abdominal: NL Sounds; No Tenderness; No Distention Extremities: No Clubbing, Cyanosis Skin: No Nodules or Sclerosis Neurological: Alert and Oriented x 3 Result Diagrams: 07/22/17 05:10 07/22/17 05:10 Assess/Plan/Problems-Billing Ms Cho is an 82 yo F who has a h/o colon cancer in remission who presented to the ER wtih c/o abdominal pain and vomiting and was found to have a SBO. - Patient Problems (1) SBO (small bowel obstruction) Current Visit: Yes Status: Acute Code(s): K56.609 - UNSP INTESTNL OBST, UNSP TO PARTIAL VERSUS COMPLETE OBST SNOMED Code(s): 182792778 Comment: Pt is improving. Appreciate surgical input. Will continue clear liquid diet for tonight but if stable tomorrow can likely advance to fulls/ regular. (2) Hydronephrosis, left Current Visit: Yes Status: Acute Code(s): N13.30 - UNSPECIFIED HYDRONEPHROSIS SNOMED Code(s): 81044307 Comment: No ureteral jet seen on ultrasound with severe hydronephrosis. Will call for urology evaluation. Creatinine is normal. (3) DVT prophylaxis Current Visit: Yes Status: Acute Code(s): GLJ9573 - SNOMED Code(s): 783743128 Comment: SQ heparin (4) DNR (do not resuscitate) Current Visit: Yes Status: Acute
--- NOTE | 2017-07-22 19:28 | CONS ---
CC: Dr. Mendel Cline * GENITOURINARY CONSULTATION: DATE OF CONSULT: 07/22/17 LOCATION: She is an inpatient, room 334. REASON FOR CONSULT: I was asked by Harmony Fitzgerald NP from the hospitalist service to see this 82-year-old white female because of new onset of left hydronephrosis. HISTORY OF PRESENT ILLNESS: Mrs. Cho is an 82-year-old female with past history of colon cancer diagnosed in 1998 and found at that time, to have metastasis into the lung and her liver. She underwent colon resection followed by chemotherapy and radiation therapy and she did well and has no evidence of recurrent disease. She was admitted yesterday with symptoms of small bowel obstruction. She did not have any renal symptoms or flank pain. She had a CT of the abdomen and pelvis, which confirmed small bowel obstruction and there was a new finding of left hydroureteronephrosis with dilated ureter all the way to the level of the ureterovesical junction. There were no calculi seen and no pelvic masses to explain the hydronephrosis. The patient has had a CT of the abdomen and pelvis in June 2012 and at that time the left kidney and ureter looked normal. On this admission, she had a normal renal function with a creatinine of 0.9. Her urine analysis was negative. She denies any past or recent history of renal diseases or calculi and denies any episodes of flank pain. She denies any history of gross hematuria or urinary tract infections. Because the bladder looked a bit distended on the CT, she had a Rios catheter placed and there was minimal residual urine, and the Rios catheter was removed. She continues to void well. Renal ultrasound was obtained this morning and I was present at the time of the study was done. Moderate degree of left hydronephrosis is again noted. The distal ureter could not be well visualized because of overlying gas. On physical examination, she is an elderly white female, who is lying comfortably in bed. Her abdomen is soft and slightly distended, but nontender. She has no CVA tenderness. Clinically, the patient is improving and her small bowel obstruction seems to be resolving. IMPRESSION: 1. New onset of left hydroureteronephrosis in an 82-year-old female with past history of metastatic colon cancer treated with pelvic radiation therapy. 2. Resolving small bowel obstruction. PLAN: Considering the patient is asymptomatic and renal function is normal and that she is just recovering from a small bowel obstruction, no additional work- up is planned during this admission. I will follow her up as an outpatient after her discharge and will repeat the renal ultrasound. If the hydronephrosis persists, she will need work-up a cystoscopy, left retrograde pyelography, possible left ureteroscopy and a stent placement both at a diagnostic and therapeutic procedure. [id number]/[facility] #: [id number] MTDD
[2017-07-22] MEDS: cefTRIAXone(*) 1 GM in NS 0.9% 50 ML* 50 ML IVPB SCH (20:35)
[2017-07-22] MEDS: Lactobacillus Acidophilus* 1 TAB PO SCH (20:35)
--- NOTE | 2017-07-23 00:41 | CONS ---
CC: Dr. Cho; Dr. Harmony Saez * UROLOGY CONSULTATION: DATE OF CONSULT: 07/22/17 REQUESTING PHYSICIAN: Linda Maldonado DO DIAGNOSIS: Left hydronephrosis. HISTORY OF PRESENT ILLNESS: Sabiha Cho is an 82-year-old lady with a past history significant for metastatic colon cancer diagnosed in 1998, who was admitted for abdominal pain and nausea. She had a CT scan and 2 ultrasounds, 1 on 07/21/17 and 1 on 07/22/17, showing persistent severe left hydronephrosis with an absent left ureteral jet. She denies any left flank pain and has a normal creatinine on admission and there is no history of pyelonephritis or urolithiasis. Her past history is significant for the above-mentioned colon cancer, which at the time of diagnosis presented with metastatic lesions in the lung and liver and she had a transverse colon resection followed by chemotherapy and radiation and has actually been cancer free for the last 13 to 14 years. Her last CEA ( carcinoembryonic antigen) level in 2017 was 2. PAST MEDICAL HISTORY: Essentially unremarkable other than the history of the stage IV colon cancer. She also has a history of C. diff enterocolitis. MEDICATIONS ON ADMISSION: Multivitamins. ALLERGIES AND INTOLERANCES: COMPAZINE, LEVAQUIN, CODEINE, DEMEROL, PHENERGAN, CIPRO, and OPIATES. SOCIAL HISTORY: She has a 90-pack year smoking history (3 packs a day for 30 years) and she quit in 1986. REVIEW OF SYSTEMS: She denies any chest pain or shortness of breath. There are no symptoms related to neurologic or vascular symptoms. PHYSICAL EXAM: Reveals a pleasant healthy-appearing elderly lady who is alert and oriented. Blood pressure is 150/80, heart rate 78 per minute, temperature 98.2, respirations 16 per minute, oxygen saturation 100% on room air. Cardiovascular: Regular rate and rhythm. S1, S2. Lungs are clear bilaterally. Abdomen is soft and mild to moderately distended. There is no rebound tenderness or guarding. There is no costovertebral angle tenderness. DIAGNOSTIC STUDIES/LAB DATA: I reviewed the lab studies which today revealed a white count of 5.2, hemoglobin and hematocrit are 10.5 and 31 with a platelet count of 141,000. Sodium is 143, potassium is 3.6, BUN and creatinine are normal at 17 and 0.8 respectively. Lactic acid on admission was 1.2. Her urinalysis on 07/21/17 was negative for blood, nitrite, bilirubin and glucose and also for leukocyte esterase. I also reviewed all the imaging studies including the CAT scan and the 2 ultrasounds. On the CAT scan, she certainly has significant left hydronephrosis , cortical thickness appears reasonably well preserved and I could not identify a dilated ureter, although that is somewhat difficult because of the dilated bowel loops. IMPRESSION AND PLAN: I had a detailed discussion with Ms. Cho regarding the findings of left hydronephrosis (which was not present on the last CAT scan in 2012). The possibilities include a congenital ureteropelvic junction, which can manifest as late as this in life. The other possibilities include a stricture involving the left ureter (she had radiation after the diagnosis of colon cancer ) and the other possibility would be related to neoplasm for which I am requesting a repeat CEA level to be drawn. My recommendation is to try to obtain a CT urogram to delineate the etiology and the level of obstruction of the left ureter,and depending on the findings she may then require a left retrograde and left stent insertion. [id number]/CPS #: [id number] HERMELINDA
[2017-07-23] MEDS: NS 0.9% 1000 ML* 1,000 ML IV SCH (01:48)
[2017-07-23] MEDS: Heparin VIAL(*) 5000 UNITS/ML VIAL (FIVE THOUSAND) SUBCUT SCH ×2 (06:02→13:11)
[2017-07-23] MEDS ORDERED: Iohexol 300* (CONTRAST) 10 ML SDV IV ONE (08:42)
[2017-07-23] MEDS: Lactobacillus Acidophilus* 1 TAB PO SCH ×2 (09:36→23:36)
--- NOTE | 2017-07-23 09:38 | PN ---
Progress Note - Progress Note Date of Service: 07/23/17 SOAP: Subjective:admitted for SBO no abd pain,passing flatus;no n/v;had urogram CT this morning as ordered by Dr Ventura for L hydronephrosis workup [] Objective:afeb;VSS;abd:hypoactive,tinkling bs;soft;nontender;nondistended;no Left flank pain [] Assessment:SBO symptoms resolved;currently NPO [] Plan:followup per Dr Ventura,possible L ureteral stent placement later today; medical mgmt per Hosp []
--- NOTE | 2017-07-23 09:48 | RAD ---
CLINICAL HISTORY: Left hydronephrosis COMPARISON: Ultrasound dated July 22, 2017, CT dated July 21, 2017 TECHNIQUE: Multiple contiguous axial CT scans were obtained of the abdomen and pelvis both before and after the administration of nonionic intravenous contrast. Delayed images were obtained through the renal collecting system. Coronal and sagittal multiplanar reformations are submitted for review. 3-D volumetric reconstructions are submitted of the renal collecting system. FINDINGS: LUNG BASES: There is stable small right pleural effusion versus chronic pleural thickening. LIVER: There is stable low-attenuation lesion of liver most suggestive of hepatic cysts. BILE DUCTS: There is no common duct dilatation or intrahepatic biliary dilatation. There is stranding of the fat adjacent to the distal common duct best seen on axial image 73 of series 4. GALLBLADDER: The gallbladder is normal, without pericholecystic inflammatory change. PANCREAS: There is fatty atrophy of the pancreas SPLEEN: Normal in size and appearance. UPPER GI TRACT: Evaluation of the gastrointestinal tract is limited by incomplete gastric distention. The upper GI tract is unremarkable. SMALL BOWEL AND MESENTERY: The small bowel is normal in contour, course, and caliber. There is no obstruction or dilatation. COLON: The colon is normal in contour, course, caliber. There is no pericolonic inflammatory change. ADRENALS: Normal bilaterally. KIDNEYS: Again noted is severe left-sided pelvocaliectasis. There is no appreciable nephrolithiasis. The point of obstruction appears to be at the level of the left UPJ. There is a crossing left renal vein at this level. BLADDER: The bladder is smooth in contour. PELVIC ORGANS: The pelvic organs are not visualized. AORTA: There is calcific atherosclerotic disease of the abdominal aorta and its branches, without aneurysmal dilatation IVC: Unremarkable LYMPH NODES: There is no lymphadenopathy by size criteria. ABDOMINAL WALL: There is no evidence for abdominal wall hernia. BONES AND SOFT TISSUES: There is a scoliotic curvature of the spine. Degenerative changes are noted of the spine. OTHER: None IMPRESSION: 1. LEFT HYDRONEPHROSIS SUGGESTING LEFT UPJ OBSTRUCTION. THERE IS A CROSSING VESSEL AT THIS LEVEL. 2. ATHEROSCLEROSIS. 3. SCOLIOSIS. 4. THERE IS A SMALL RIGHT PLEURAL EFFUSION VERSUS CHRONIC PLEURAL THICKENING. 5. THERE IS MILD INFLAMMATORY CHANGE ALONG THE DISTAL COMMON BILE DUCT WITHOUT BILIARY DILATATION.
[2017-07-23] MEDS ORDERED: Famotidine IV* 10 MG/ML 2 ML (20 mg) IV ONE (10:44)
[2017-07-23] MEDS ORDERED: Buffered Lidocaine 0.9% SYRIN* 5 ML/SYR SYRINGE INTRADERM ONE (10:44)
[2017-07-23] MEDS: Pantoprazole IV* 40 MG IV SCH (13:17)
--- NOTE | 2017-07-23 13:31 | PN ---
Subjective Date of Service: 07/23/17 Interval History: HOSPITALIST PROGRESS NOTE Patient seen and examined at bedside. Care reviewed and d/w Radha Granda RN. Mrs. Cho feels better today. Abdominal pain, nausea and vomiting are resolved. Passing flatus but no BM so far. Denies flank pain or dysuria. Anxious about procedure later today. Family History: Unchanged from Admission Social History: Unchanged from Admission Past Medical History: Unchanged from Admission Objective Active Medications: Heparin Sodium (Porcine) (Heparin Vial(*)) 5,000 units SUBCUT Q8HR [facility] Last Admin: 07/23/17 13:11 Dose: Not Given Hydralazine HCl (Apresoline Iv*) 5 mg IV SLOW PU Q6H PRN PRN Reason: BLOOD PRESSURE Last Admin: 07/21/17 15:38 Dose: 5 mg Ceftriaxone Sodium 1 gm/ (Sodium Chloride) 50 mls @ 200 mls/hr IVPB Q24H [facility] Last Admin: 07/22/17 20:35 Dose: 200 mls/hr Lactated Ringer's (Lactated Ringers 1000 Ml Bag*) 1,000 mls @ 125 mls/hr IV PER RATE [facility] Last Admin: 07/23/17 12:47 Dose: 125 mls/hr Lactobacillus Rhamnosus (Lactobacillus Acidophilus*) 1 tab PO BID [facility] Last Admin: 07/23/17 09:36 Dose: 1 tab Lidocaine/Sodium Bicarbonate (Buffered Lidocaine 0.9% Syrin*) 0.2 ml INTRADERM ONCE ONE Stop: 07/23/17 10:45 Pantoprazole Sodium (Protonix Iv*) 40 mg IV Q24H [facility] Last Admin: 07/23/17 13:17 Dose: 40 mg Vital Signs - 8 hr 07/23/17 07/23/17 11:53 12:00 Temperature 97.3 F Pulse Rate 74 Respiratory 16 Rate Blood Pressure 138/72 (mmHg) O2 Sat by Pulse 99 Oximetry Oxygen Devices in Use Now: None Appearance: Pleasant elderly lady lying in bed in NAD. Eyes: No Scleral Icterus Ears/Nose/Mouth/Throat: Mucous Membranes Moist Neck: Trachea Midline Respiratory: Symmetrical Chest Expansion and Respiratory Effort, Clear to Auscultation Cardiovascular: RRR - Normal S1 and S2 Abdominal: - - Soft, NT, ND, BS+ but hypoactive Extremities: No Edema Neurological: Alert and Oriented x 3, NL Muscle Strength and Tone Result Diagrams: 07/22/17 05:10 07/22/17 05:10 Assess/Plan/Problems-Billing Assessment: Mrs Cho is an 82 yo F with a PMH of colon cancer in remission, recurrent C. diff, who presented to the ER wtih c/o abdominal pain and vomiting and was found to have a SBO. - Patient Problems (1) SBO (small bowel obstruction) Comment: - Much improved, passing flatus. - NPO for now for OR later today. - Appreciate surgical input. (2) Hydronephrosis, left Comment: - No ureteral jet seen on ultrasound with severe hydronephrosis. - CEA is 1.3. - No fever, no CVA tenderness, creatinine is normal, but CT urogram suggests left UPJ obstruction. Lengthy conversation with patient and daughter about diagnosis and options. They're agreeable with cystoscopy and possible stent placement. Dr. Ventura aware - plan for procedure later today. - Patient has no complaints of chest pain or dyspnea, EKG shows no ischemic changes. - Patient's RCRI is 0 predicting a risk 0.5% of cardiac complications. - Optimized for proposed procedure. (3) DVT prophylaxis Comment: - SQ heparin on hold for procedure. (4) DNR (do not resuscitate) Status and Disposition: Inpatient for management of SBO and hydronephrosis.
[2017-07-23] MEDS ORDERED: Dexamethasone IV* 4 MG/ML 1 ML (4 MG) ONE (17:18)
[2017-07-23] MEDS ORDERED: Metoclopramide IV* 5 MG/ML 2 ML VIAL ONE (17:26)
[2017-07-23] MEDS ORDERED: cefTRIAXone(*) 1 GM ADVAN/BAG ONE (18:31)
[2017-07-23] MEDS ORDERED: Propofol* 10 MG/ML 20 ML BTL IV PUSH ONE (18:37)
[2017-07-23] MEDS ORDERED: fentaNYL* 50 MCG/ML 2 ML VIAL (100 MCG VIAL) ONE (18:37)
[2017-07-23] MEDS ORDERED: Iohexol 180 (CONTRAST) 10 ML SDV IV ONE (19:08)
[2017-07-23] MEDS ORDERED: DiMENhydriNATE IV* 50 MG/ML VIAL IV PUSH PRN (19:37)
[2017-07-23] MEDS ORDERED: Naloxone* 0.4 MG/ML 1 ML VIAL IV PRN (19:37)
[2017-07-23] MEDS ORDERED: Acetaminophen TAB* 325 MG PO PRN (19:37)
[2017-07-23] MEDS ORDERED: hydrALAZINE IV* 20 MG/ML VIAL IV SLOW PU PRN (19:38)
[2017-07-23] MEDS ORDERED: hydrALAZINE IV* 20 MG/ML VIAL ONE (19:41)
--- NOTE | 2017-07-23 20:20 | RAD ---
INDICATION: Cystogram, LEFT retrograde pyelogram, and stent placement. COMPARISON: July 23, 2017 CT 17 seconds TECHNIQUE: 17 seconds fluoroscopy. FINDINGS: LEFT retrograde pyelogram demonstrates severe pelvicaliectasis and pyelosinus rupture. LEFT ureteral stent placed. IMPRESSION: Procedural fluoroscopy. CPT II Codes: G9500
[2017-07-23] MEDS ORDERED: Labetalol IV* 5 MG/ML 20 ML VIAL IV PUSH PRN (20:28)
[2017-07-23] MEDS ORDERED: Labetalol IV* 5 MG/ML 20 ML VIAL ONE (20:30)
[2017-07-23] MEDS: cefTRIAXone(*) 1 GM in NS 0.9% 50 ML* 50 ML IVPB SCH (21:44)
[2017-07-23] MEDS: amLODIPine TAB* 5 MG PO SCH (23:36)
--- NOTE | 2017-07-24 00:46 | ED ---
Charles Castorena Julia, scribed for Tavares Santacruz MD on 07/21/17 at 0408 . Abdominal Pain/Female - HPI Summary HPI Summary: This patient is a 82 year old F BIBA to [facility] accompanied by her daughter with a chief complaint of epigastric abdomen pain beginning yesterday evening the has gradually worsened with vomiting earlier this morning. She reports dizziness with vomiting. Pain is 4/10 in severity. Patient denies diarrhea, fever, chills, headaches, and CP. She reports a normal BM last night. PMHx of stage 4 metastatic colon cancer without reoccurrence since 2004. - History of Current Complaint Chief Complaint: EDAbdPain Stated Complaint: ABD PAIN Hx Obtained From: Patient Onset/Duration: Lasting Hours Pain Intensity: 4 Pain Scale Used: 0-10 Numeric Location: Epigastric Associated Signs and Symptoms: Positive: Dizzy, Nausea, Vomiting Allergies/Adverse Reactions: Allergies Allergy/AdvReac Type Severity Reaction Status Date / Time levofloxacin [From Levaquin] Allergy Intermediate Rash Verified 07/21/17 08:41 prochlorperazine Allergy Intermediate Swelling Verified 07/21/17 08:41 [From Compazine] codeine Allergy Mild Syncope Verified 07/21/17 08:41 ondansetron [From Zofran] Allergy See Comment Verified 07/21/17 09:10 granisetron [From Kytril] AdvReac Intermediate GI Upset Verified 07/21/17 08:41 meperidine [From Demerol] AdvReac Intermediate Vomiting Verified 07/21/17 08:41 promethazine [From Phenergan] AdvReac Intermediate GI Upset Verified 07/21/17 08 :41 ANTINAUSEA MEDS Allergy Severe "MAKES ME Uncoded 07/21/17 04:23 SICK" FLOROQUINOLONES Allergy Severe TENDON Uncoded 07/21/17 04:23 RUPTURE OPIOIDS Allergy Severe "MAKES ME Uncoded 07/21/17 04:23 SICK" PMH/Surg Hx/FS Hx/Imm Hx Endocrine/Hematology History: Denies: Hx Anticoagulant Therapy, Hx Diabetes, Hx Thyroid Disease Cardiovascular History: Denies: Hx Congestive Heart Failure, Hx Deep Vein Thrombosis, Hx Hypertension , Hx Myocardial Infarction, Hx Pacemaker/ICD Respiratory History: Denies: Hx Asthma, Hx Chronic Obstructive Pulmonary Disease (COPD), Hx Lung Cancer, Hx Pneumonia, Hx Pulmonary Embolism GI History: Reports: Hx Gastroesophageal Reflux Disease, Hx Obstructive Bowel, Other GI Disorders - anastamosis s/p surgery/impaction s/p c-diff Denies: Hx Gall Bladder Disease, Hx Gastrointestinal Bleed, Hx Ulcer, Hx Urosepsis History: Denies: Hx Kidney Stones, Hx Renal Disease Musculoskeletal History: Reports: Hx Arthritis Sensory History: Reports: Hx Contacts or Glasses, Hx Hearing Problem - left ear Opthamlomology History: Reports: Hx Contacts or Glasses Neurological History: Reports: Hx Migraine Denies: Hx Dementia, Hx Seizures, Hx Transient Ischemic Attacks (TIA) Psychiatric History: Denies: Hx Anxiety, Hx Depression, Hx Schizophrenia, Hx Bipolar Disorder, Hx Substance Abuse - Cancer History Cancer Type, Location and Year: 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 Colon Surgery x 3. Hysterectomy, appendectomy, lymph node removed from abd. Infectious Disease History: No Infectious Disease History: Reports: Hx Clostridium Difficile Denies: Hx Hepatitis, Hx Human Immunodeficiency Virus (HIV), Traveled Outside the [place] in Last 30 Days - Family History Known Family History: Positive: Cardiac Disease, Other - lymphoma Negative: Hypertension, Diabetes - Social History Occupation: Retired Lives: With Family Alcohol Use: Occasionally Substance Use Type: Reports: None Hx Tobacco Use: No Smoking Status (MU): Former Smoker Review of Systems Negative: Fever, Chills Negative: Chest Pain Positive: Abdominal Pain, Vomiting Neurological: Other - dizziness Negative: Headache All Other Systems Reviewed And Are Negative: Yes Physical Exam - Summary Physical Exam Summary: Appearance: Well-appearing, Well-nourished, lying in bed comfortably Skin: Warm, dry, no obvious rash Eyes: sclera anicteric, no conjunctiva pallor ENT: mucous membranes moist, pharynx appears normal Neck: Supple, nontender Respiratory: Clear to auscultation, no signs of respiratory distress Cardiovascular: Normal S1, S2. No murmurs. Normal distal pulses in tibial and radial bilaterally. Good femoral pulses bilaterally Abdomen: Soft, nontender, normal active bowel sounds present Musculoskeletal: Normal, Strength/ROM Intact Neurological: A&Ox3, awake and alert, mentation is normal, speech is fluent and appropriate Psychiatric: affect is normal, does not appear anxious or depressed Triage Information Reviewed: Yes Vital Signs On Initial Exam: Initial Vitals Temp Pulse Resp BP Pulse Ox 97.2 F 108 24 182/128 97 07/21/17 03:54 07/21/17 03:54 07/21/17 03:54 07/21/17 03:54 07/21/17 03:54 Vital Signs Reviewed: Yes Diagnostics - Vital Signs Vital Signs Temp Pulse Resp BP Pulse Ox 07/21/17 03:54 97.2 F 108 24 182/128 97 - Laboratory Lab Results: Lab Results 07/21/17 07/21/17 07/21/17 Range/Units 05:18 05:20 05:20 WBC 9.4 (3.5-10.8) 10^3/ul RBC 4.35 (4.0-5.4) 10^6/ul Hgb 12.8 (12.0-16.0) g/dl Hct 38 (35-47) % MCV 87 (80-97) fL MCH 29 (27-31) pg MCHC 34 (31-36) g/dl RDW 15 (10.5-15) % Plt Count 177 (150-450) 10^3/ul MPV 8.9 (7.4-10.4) um3 Neut % (Auto) 88.2 H (38-83) % Lymph % (Auto) 6.4 L (25-47) % [place] % (Auto) 4.5 (0-7) % Eos % (Auto) 0.5 (0-6) % Baso % (Auto) 0.4 (0-2) % Absolute Neuts (auto) 8.3 H (1.5-7.7) 10^3/ul Absolute Lymphs (auto) 0.6 L (1.0-4.8) 10^3/ul Absolute Monos (auto) 0.4 (0-0.8) 10^3/ul Absolute Eos (auto) 0 (0-0.6) 10^3/ul Absolute Basos (auto) 0 (0-0.2) 10^3/ul Absolute Nucleated RBC 0 10^3/ul Nucleated RBC % 0 Sodium 139 (139-145) mmol/L Potassium 3.8 (3.5-5.0) mmol/L Chloride 107 (101-111) mmol/L Carbon Dioxide 23 (22-32) mmol/L Anion Gap 9 (2-11) mmol/L BUN 23 (6-24) mg/dL Creatinine 0.90 (0.51-0.95) mg/dL Est GFR ( Amer) 76.9 (>60) Est GFR (Non-Af Amer) 59.8 (>60) BUN/Creatinine Ratio 25.6 H (8-20) Glucose 134 H (70-100) mg/dL Lactic Acid 1.2 (0.5-2.0) mmol/L Calcium 9.2 (8.6-10.3) mg/dL Total Bilirubin 0.70 (0.2-1.0) mg/dL AST 15 (13-39) U/L ALT 8 (7-52) U/L Alkaline Phosphatase 101 (34-104) U/L Total Protein 6.4 (6.4-8.9) g/dL Albumin 3.7 (3.2-5.2) g/dL Globulin 2.7 (2-4) g/dL Albumin/Globulin Ratio 1.4 (1-3) Lipase 16 (11.0-82.0) U/L Carcinoembryonic Ag (0.1-5.0) ng/mL Urine Color Urine Appearance Urine pH (5-9) Ur Specific [place] (1.010-1.030) Urine Protein (Negative) Urine Ketones (Negative) Urine Blood (Negative) Urine Nitrate (Negative) Urine Bilirubin (Negative) Urine Urobilinogen (Negative) Ur Leukocyte Esterase (Negative) Urine Glucose (Negative) 07/21/17 07/22/17 07/22/17 Range/Units 05:53 05:10 05:10 WBC 5.2 (3.5-10.8) 10^3/ul RBC 3.54 L (4.0-5.4) 10^6/ul Hgb 10.5 L (12.0-16.0) g/dl Hct 31 L (35-47) % MCV 88 (80-97) fL MCH 30 (27-31) pg MCHC 34 (31-36) g/dl RDW 15 (10.5-15) % Plt Count 141 L (150-450) 10^3/ul MPV 8.6 (7.4-10.4) um3 Neut % (Auto) 59.0 (38-83) % Lymph % (Auto) 27.8 (25-47) % [place] % (Auto) 9.3 H (0-7) % Eos % (Auto) 3.0 (0-6) % Baso % (Auto) 0.9 (0-2) % Absolute Neuts (auto) 3.0 (1.5-7.7) 10^3/ul Absolute Lymphs (auto) 1.4 (1.0-4.8) 10^3/ul Absolute Monos (auto) 0.5 (0-0.8) 10^3/ul Absolute Eos (auto) 0.2 (0-0.6) 10^3/ul Absolute Basos (auto) 0 (0-0.2) 10^3/ul Absolute Nucleated RBC 0 10^3/ul Nucleated RBC % 0 Sodium 143 (139-145) mmol/L Potassium 3.6 (3.5-5.0) mmol/L Chloride 116 H (101-111) mmol/L Carbon Dioxide 22 (22-32) mmol/L Anion Gap 5 (2-11) mmol/L BUN 17 (6-24) mg/dL Creatinine 0.78 (0.51-0.95) mg/dL Est GFR ( Amer) 90.7 (>60) Est GFR (Non-Af Amer) 70.5 (>60) BUN/Creatinine Ratio 21.8 H (8-20) Glucose 92 (70-100) mg/dL Lactic Acid (0.5-2.0) mmol/L Calcium 8.5 L (8.6-10.3) mg/dL Total Bilirubin (0.2-1.0) mg/dL AST (13-39) U/L ALT (7-52) U/L Alkaline Phosphatase (34-104) U/L Total Protein (6.4-8.9) g/dL Albumin (3.2-5.2) g/dL Globulin (2-4) g/dL Albumin/Globulin Ratio (1-3) Lipase (11.0-82.0) U/L Carcinoembryonic Ag (0.1-5.0) ng/mL Urine Color Straw Urine Appearance Clear Urine pH 8.0 (5-9) Ur Specific [place] 1.005 L (1.010-1.030) Urine Protein Negative (Negative) Urine Ketones Trace A (Negative) Urine Blood Negative (Negative) Urine Nitrate Negative (Negative) Urine Bilirubin Negative (Negative) Urine Urobilinogen Negative (Negative) Ur Leukocyte Esterase Negative (Negative) Urine Glucose Negative (Negative) 07/23/17 Range/Units 05:58 WBC (3.5-10.8) 10^3/ul RBC (4.0-5.4) 10^6/ul Hgb (12.0-16.0) g/dl Hct (35-47) % MCV (80-97) fL MCH (27-31) pg MCHC (31-36) g/dl RDW (10.5-15) % Plt Count (150-450) 10^3/ul MPV (7.4-10.4) um3 Neut % (Auto) (38-83) % Lymph % (Auto) (25-47) % [place] % (Auto) (0-7) % Eos % (Auto) (0-6) % Baso % (Auto) (0-2) % Absolute Neuts (auto) (1.5-7.7) 10^3/ul Absolute Lymphs (auto) (1.0-4.8) 10^3/ul Absolute Monos (auto) (0-0.8) 10^3/ul Absolute Eos (auto) (0-0.6) 10^3/ul Absolute Basos (auto) (0-0.2) 10^3/ul Absolute Nucleated RBC 10^3/ul Nucleated RBC % Sodium (139-145) mmol/L Potassium (3.5-5.0) mmol/L Chloride (101-111) mmol/L Carbon Dioxide (22-32) mmol/L Anion Gap (2-11) mmol/L BUN (6-24) mg/dL Creatinine (0.51-0.95) mg/dL Est GFR ( Amer) (>60) Est GFR (Non-Af Amer) (>60) BUN/Creatinine Ratio (8-20) Glucose (70-100) mg/dL Lactic Acid (0.5-2.0) mmol/L Calcium (8.6-10.3) mg/dL Total Bilirubin (0.2-1.0) mg/dL AST (13-39) U/L ALT (7-52) U/L Alkaline Phosphatase (34-104) U/L Total Protein (6.4-8.9) g/dL Albumin (3.2-5.2) g/dL Globulin (2-4) g/dL Albumin/Globulin Ratio (1-3) Lipase (11.0-82.0) U/L Carcinoembryonic Ag 1.3 (0.1-5.0) ng/mL Urine Color Urine Appearance Urine pH (5-9) Ur Specific [place] (1.010-1.030) Urine Protein (Negative) Urine Ketones (Negative) Urine Blood (Negative) Urine Nitrate (Negative) Urine Bilirubin (Negative) Urine Urobilinogen (Negative) Ur Leukocyte Esterase (Negative) Urine Glucose (Negative) Result Diagrams: 07/22/17 05:10 07/22/17 05:10 Lab Statement: Any lab studies that have been ordered have been reviewed, and results considered in the medical decision making process. Abdominal Pain Fem Course/Dx - Diagnoses Provider Diagnoses: Partial small bowel obstruction Discharge - Sign-Out/Discharge Documenting (check all that apply): Discharge/Admit/Transfer - Discharge Plan Condition: Fair Disposition: ADMITTED TO [facility] - Billing Disposition and Condition Condition: FAIR Disposition: [facility] [place] The documentation as recorded by the Charles nolasco Julia accurately reflects the service I personally performed and the decisions made by , Tavares Santacruz MD.
[2017-07-24] MEDS ORDERED: Acetaminophen TAB* 325 MG ONE (03:37)
[2017-07-24] MEDS: Acetaminophen TAB* 325 MG PO PRN ×3 (03:39→17:46)
[2017-07-24 06:19] LABS: ABS Basophils 0 10^3/ul (0-0.2); ABS Eosinophils 0 10^3/ul (0-0.6); ABS Lymphocytes 0.6 10^3/ul (1.0-4.8); ABS Monocytes 0.1 10^3/ul (0-0.8); ABS Neutrophils 3.3 10^3/ul (1.5-7.7); ABS Nucleated RBC 0 10^3/ul; Eosinophil % 0.2 % (0-6); Hematocrit 30 % (35-47); Hemoglobin 10.5 g/dl (12.0-16.0); Lymphocyte % 14.4 % (25-47); Mean Corpuscular HGB Conc 35 g/dl (31-36); Mean Corpuscular Hemoglobin 30 pg (27-31); Mean Corpuscular Volume 86 fL (80-97); Mean Platelet Volume 8.7 um3 (7.4-10.4); Nucleated Red Blood Cells % 0; Platelet Count 125 10^3/ul (150-450); Red Blood Count 3.51 10^6/ul (4.0-5.4); Red Cell Distribution Width 15 % (10.5-15); White Blood Count 4.1 10^3/ul (3.5-10.8)
[2017-07-24 06:38] LABS: EGFR Non-African American 67.5 (>60)
[2017-07-24] MEDS: amLODIPine TAB* 5 MG PO SCH (08:26)
[2017-07-24] MEDS: Lactobacillus Acidophilus* 1 TAB PO SCH ×2 (08:26→22:17)
--- NOTE | 2017-07-24 13:06 | PN ---
Subjective Date of Service: 07/24/17 Interval History: HOSPITALIST PROGRESS NOTE Patient seen and examined at bedside. Care reviewed and d/w Yon Benson RN. She feels better today. Denies abdominal pain, appetite is good, tolerating full liquids well with no nausea or vomiting. Passing flatus but no BM so far. Had tachycardia after procedure last night, but denies palpitations or chest pain. Later this AM she ambulated around the unit and became tachycardic again with dyspnea, but no chest pain or palpitations. Family History: Unchanged from Admission Social History: Unchanged from Admission Past Medical History: Unchanged from Admission Objective Active Medications: Acetaminophen (Tylenol Tab*) 650 mg PO Q4H PRN PRN Reason: FEVER/PAIN Last Admin: 07/24/17 03:39 Dose: 650 mg Amlodipine Besylate (Norvasc Tab*) 5 mg PO DAILY [facility] Last Admin: 07/24/17 08:26 Dose: 5 mg Hydralazine HCl (Apresoline Iv*) 5 mg IV SLOW PU Q6H PRN PRN Reason: BLOOD PRESSURE Last Admin: 07/21/17 15:38 Dose: 5 mg Ceftriaxone Sodium 1 gm/ (Sodium Chloride) 50 mls @ 200 mls/hr IVPB Q24H [facility] Last Admin: 07/23/17 21:44 Dose: 200 mls/hr Lactobacillus Rhamnosus (Lactobacillus Acidophilus*) 1 tab PO BID [facility] Last Admin: 07/24/17 08:26 Dose: 1 tab Naloxone HCl (Narcan*) 0.08 mg IV Q2M PRN PRN Reason: severe induced resp depression Stop: 07/24/17 19:36 Pantoprazole Sodium (Protonix Iv*) 40 mg IV Q24H [facility] Last Admin: 07/23/17 13:17 Dose: 40 mg Vital Signs - 8 hr 07/24/17 07/24/17 07/24/17 07:13 08:00 11:20 Temperature 97.4 F 97.7 F Pulse Rate 74 82 Respiratory 16 16 16 Rate Blood Pressure 149/68 120/45 (mmHg) O2 Sat by Pulse 98 98 100 Oximetry Oxygen Devices in Use Now: None Appearance: Pleasant elderly lady sitting up in bed in NAD. Eyes: No Scleral Icterus Ears/Nose/Mouth/Throat: Mucous Membranes Moist Neck: Trachea Midline Respiratory: Symmetrical Chest Expansion and Respiratory Effort, Clear to Auscultation Cardiovascular: RRR - Normal S1 and S2 Abdominal: NL Sounds; No Tenderness; No Distention Extremities: No Edema Neurological: Alert and Oriented x 3, NL Muscle Strength and Tone Result Diagrams: 07/24/17 06:06 07/24/17 06:06 Assess/Plan/Problems-Billing Assessment: Mrs Cho is an 82 yo F with a PMH of colon cancer in remission, recurrent C. diff, who presented to the ER wtih c/o abdominal pain and vomiting and was found to have a SBO. - Patient Problems (1) Tachycardia Comment: - Patient has tachycardia and dyspnea on exertion. Denies chest pain or palpitations. - Check EKG, CxR, and trops. - Continue to monitor on Telemetry. (2) SBO (small bowel obstruction) Comment: - Much improved, passing flatus. - Advance to low fiber diet as tolerated. (3) Hydronephrosis, left Comment: - No ureteral jet seen on ultrasound with severe hydronephrosis. - CEA is 1.3. - No fever, no CVA tenderness, creatinine is normal, but CT urogram suggests left UPJ obstruction. - S/p left ureteral stent placement 07/23/17. - One more dose of Ceftriaxone tonight and d/c. (4) DVT prophylaxis Comment: - SCDs. (5) DNR (do not resuscitate) Status and Disposition: Inpatient for management of SBO and hydronephrosis.
--- NOTE | 2017-07-24 14:06 | RAD ---
Indication: Dyspnea with exertion. Comparison is made with previous exam dated May 21, 2017. 2 views of the chest including dual energy PA views demonstrates no mediastinal shift. Tortuous descending aorta is noted. Lung logan appear clear. There is blunting of the right costophrenic angle which likely represents a small right pleural effusion. This was not present on prior exam. IMPRESSION: Small right pleural effusion. No definite pneumonia is identified.
[2017-07-24] MEDS: Pantoprazole IV* 40 MG IV SCH (15:22)
[2017-07-24] MEDS: cefTRIAXone(*) 1 GM in NS 0.9% 50 ML* 50 ML IVPB SCH (19:47)
[2017-07-24] MEDS ORDERED: [UNRECOGNIZED DRUG - OTHER] TRANSDERM SCH (20:00)
[2017-07-24] MEDS ORDERED: LIDOCAINE 5% TRANSDERM SCH (20:00)
[2017-07-24] MEDS ORDERED: Lidocaine PATCH 5%* 1 PATCH TRANSDERM SCH (20:00)
--- NOTE | 2017-07-24 20:08 | OP ---
CC: Dr. Mendel Cline * DATE OF OPERATION: 07/23/17 - ROOM #334 DATE OF : 33. SURGEON: Yemi Ventura M.D. ANESTHESIOLOGIST: Dr. Lopez. ANESTHESIA: General. PRE-OP DIAGNOSIS: Left hydronephrosis. 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 OPERATIVE PROCEDURE: Cystoscopy, left retrograde pyelogram, left ureteral dilatation, and left stent insertion. COMPLICATIONS: None. STENT USED: 7-Prydeinig stent, left ureter. INDICATIONS: Sabiha Cho is an 82-year-old lady who was evaluated for severe left hydronephrosis with no stone or any other obvious cause for obstruction noted. OPERATIVE FINDINGS: Severe left hydronephrosis with area of stricture noted at left ureteropelvic junction extending to proximal ureter. POSTOPERATIVE CONDITION: Stable. DESCRIPTION OF PROCEDURE: After induction of general anesthesia, the patient was placed in dorsal lithotomy position. Sequential compression devices were in place and functioning. Initial cystoscopy revealed a normal appearing bladder. Clear efflux was noted from the right orifice. There was no efflux noted from the left orifice suggesting a complete obstruction. A guidewire was introduced into the left ureter. Retrograde pyelogram revealed normal caliber of the distal and mid ureter with some narrowing noted in the area of the proximal ureter just below the ureteropelvic junction and severe left hydronephrosis. I did not visualize any filling defects. The ureter was fairly narrow throughout especially in the area of the proximal ureter and initially a 4-Prydeinig open-ended and then an 8-Prydeinig open-ended catheter were used to carefully dilate the ureter. Next, a 7-Prydeinig stent was introduced and positioned under fluoroscopy with good proximal and distal positioning obtained. My plan is to leave the stent in for 3 to 4 weeks to allow for passive dilatation of the proximal ureter and ureteropelvic junction, and then to bring her back for a ureteroscopy to rule out any other intrinsic pathology in that area leading to the obstruction. The patient tolerated the procedure satisfactorily and was transferred back to the recovery area in stable condition. [id number]/CPS #: [id number] MTDD
[2017-07-24] MEDS: LIDOCAINE 4% TOPICAL SCH (21:15)
[2017-07-24] MEDS: [UNRECOGNIZED DRUG - OTHER] TOPICAL SCH (21:15)
[2017-07-25 04:51] LABS: ABS Basophils 0 10^3/ul (0-0.2); ABS Eosinophils 0.2 10^3/ul (0-0.6); ABS Monocytes 0.7 10^3/ul (0-0.8); ABS Neutrophils 5.1 10^3/ul (1.5-7.7); ABS Nucleated RBC 0 10^3/ul; Eosinophil % 1.9 % (0-6); Hematocrit 31 % (35-47); Hemoglobin 10.7 g/dl (12.0-16.0); Lymphocyte % 24.3 % (25-47); Mean Corpuscular HGB Conc 35 g/dl (31-36); Mean Corpuscular Hemoglobin 30 pg (27-31); Mean Corpuscular Volume 87 fL (80-97); Mean Platelet Volume 8.9 um3 (7.4-10.4); Nucleated Red Blood Cells % 0; Platelet Count 152 10^3/ul (150-450); Red Blood Count 3.55 10^6/ul (4.0-5.4); Red Cell Distribution Width 15 % (10.5-15)
[2017-07-25 05:07] LABS: EGFR Non-African American 43.7 (>60)
[2017-07-25] MEDS: Lidocaine Patch REMOVE* 1 NOTE MISC PATCH OFF SCH (09:02)
--- NOTE | 2017-07-25 09:15 | RAD ---
INDICATION: Left hydronephrosis. Status post left renal stent placement COMPARISON: Left renal sonogram July 22, 2017; CT abdomen pelvis July 23, 2017 TECHNIQUE: Longitudinal and transverse scans of the kidneys were obtained. FINDINGS: Kidneys: The kidneys are normal in size and echogenicity. No renal masses, calculi, or hydronephrosis is seen. The right kidney measures 9.0 x 4.2 x 4.1 cm and the left kidney 9.8 x 4.5 x 4.3 cm. Other: Left renal stent placement with resolution of hydronephrosis. Gallbladder sludge or gravel. IMPRESSION: NO EVIDENCE OF HYDRONEPHROSIS POST STENT PLACEMENT. GALLBLADDER SLUDGE OR GRAVEL.
[2017-07-25] MEDS: Lactobacillus Acidophilus* 1 TAB PO SCH ×2 (09:31→20:15)
[2017-07-25] MEDS: Potassium Chloride LIQUID* 20 MEQ PACKET PO SCH ×2 (09:31→13:18)
[2017-07-25] MEDS: [UNRECOGNIZED DRUG - OTHER] TOPICAL SCH ×2 (09:43→22:24)
[2017-07-25] MEDS: LIDOCAINE 4% TOPICAL SCH ×2 (09:43→22:24)
[2017-07-25] MEDS ORDERED: Magnesium Sulfate IV* 3 GM in NS 0.9% 100 ML* 100 ML IVPB ONE (10:48)
[2017-07-25] MEDS ORDERED: NS 0.9% 100 ML* 100 ML ONE (11:17)
[2017-07-25] MEDS: NS 0.9% 1000 ML* 1,000 ML IV SCH ×2 (11:28→19:39)
--- NOTE | 2017-07-25 13:22 | PN ---
Subjective Date of Service: 07/25/17 Interval History: HOSPITALIST PROGRESS NOTE Patient seen and examined at bedside. Care reviewed and d/w Isela Sandhu RN. She states she doesn't "feel right today", but cannot pinpoint exactly what's wrong. Denies chest pain, palpitations, dyspnea, abdominal pain, N/V. She became very tachycardic while walking around unit, but denies any symptoms. Tolerating diet well, had a formed BM yesterday and some diarrhea today. Family History: Unchanged from Admission Social History: Unchanged from Admission Past Medical History: Unchanged from Admission Objective Active Medications: Acetaminophen (Tylenol Tab*) 650 mg PO Q4H PRN PRN Reason: FEVER/PAIN Last Admin: 07/24/17 17:46 Dose: 650 mg Hydralazine HCl (Apresoline Iv*) 5 mg IV SLOW PU Q6H PRN PRN Reason: BLOOD PRESSURE Last Admin: 07/21/17 15:38 Dose: 5 mg Sodium Chloride (Ns 0.9% 1000 Ml*) 1,000 mls @ 125 mls/hr IV PER RATE [facility] Last Admin: 07/25/17 11:28 Dose: 125 mls/hr Lactobacillus Rhamnosus (Lactobacillus Acidophilus*) 1 tab PO BID [facility] Last Admin: 07/25/17 09:31 Dose: 1 tab Pto Lidocaine Patch 4%* 1 Patch * Salonpas Brand 1 admin TOPICAL 1999 [facility] Last Admin: 07/25/17 09:43 Dose: 1 admin Pharmacy Profile Note (Lidocaine Patch Remove*) 1 note PATCH OFF 0800 [facility] Last Admin: 07/25/17 09:02 Dose: Not Given Selected Entries 07/25/17 03:39 Temperature 99.9 F Pulse Rate 76 Respiratory 16 Rate Blood Pressure 145/78 (mmHg) O2 Sat by Pulse 98 Oximetry Oxygen Devices in Use Now: None Appearance: Pleasant elderly lady lying in bed in [facility]. Eyes: No Scleral Icterus Ears/Nose/Mouth/Throat: - - MM are dry Neck: Trachea Midline Respiratory: Symmetrical Chest Expansion and Respiratory Effort, Clear to Auscultation Cardiovascular: RRR - Normal S1 and S2 Abdominal: NL Sounds; No Tenderness; No Distention Neurological: Alert and Oriented x 3, NL Muscle Strength and Tone Result Diagrams: 07/25/17 04:16 07/25/17 04:16 Assess/Plan/Problems-Billing Assessment: Mrs Cho is an 82 yo F with a PMH of colon cancer in remission, recurrent C. diff, who presented to the ER wtih c/o abdominal pain and vomiting and was found to have a SBO. - Patient Problems (1) Tachycardia Comment: - Patient has tachycardia on exertion. Denies chest pain or palpitations. - She appears a little dehydrated today, potassium and magnesium are low, creatinine is mildly elevated. - Will give IVF and replete lytes. - Encourage PO fluid intake. (2) SBO (small bowel obstruction) Comment: - Resolved. - Continue low fiber diet as tolerated. (3) Hydronephrosis, left Comment: - No ureteral jet seen on ultrasound with severe hydronephrosis. - CEA is 1.3. - No fever, no CVA tenderness, creatinine is normal, but CT urogram suggests left UPJ obstruction. - S/p left ureteral stent placement 07/23/17. - Repeat US 07/25/17 shows resolution of left hydro. (4) DVT prophylaxis Comment: - SCDs. (5) DNR (do not resuscitate) Status and Disposition: Inpatient for management of SBO and hydronephrosis.
[2017-07-25] MEDS: Acetaminophen TAB* 325 MG PO PRN (22:16)
[2017-07-26] MEDS: NS 0.9% 1000 ML* 1,000 ML IV SCH (03:40)
[2017-07-26 05:44] LABS: EGFR Non-African American 64.8 (>60)
[2017-07-26] MEDS: Lactobacillus Acidophilus* 1 TAB PO SCH (08:09)
[2017-07-26] MEDS: Lidocaine Patch REMOVE* 1 NOTE MISC PATCH OFF SCH (08:10)
[2017-07-26] MEDS ORDERED: amLODIPine TAB* 5 MG PO SCH (10:00)
[2017-07-26 12:41] VITALS: BP 180/93
--- NOTE | 2017-07-29 04:27 | DS ---
CC: Dr. Ventura; Dr. Cline DISCHARGE SUMMARY: DATE OF ADMISSION: 07/21/17 DATE OF DISCHARGE: 07/26/17 PRIMARY CARE DOCTOR: Dr. Cline. PRIMARY DIAGNOSIS: Left hydronephrosis, treated with stent placement. SECONDARY DIAGNOSES: 1. Small bowel obstruction, recurrent. 2. History of metastatic colon cancer diagnosed in 1998, in remission. 3. Hypertension. 4. Hypokalemia. 5. Hypomagnesemia. 6. Diarrhea. MEDICATIONS ON DISCHARGE: 1. Acetaminophen as needed for pain. 2. Amlodipine 2.5 mg p.o. daily. 3. Probiotics 1 tab p.o. b.i.d. 4. Lidocaine patch topically to low back in the evening as needed. HOSPITAL COURSE: An 82-year-old woman with a history of colon cancer and recurrent small bowel obstruction, was admitted with abdominal pain and vomiting. CT of the abdomen and pelvis on 07/21/17 showed small bowel obstruction and left hydronephrosis. Ultrasound done the same day also confirmed hydronephrosis. The patient's small bowel obstruction was managed conservatively with hydration and bowel rest and repletion of her electrolytes. She had a consultation with Dr. Willett, who reviewed the CT scan and her laboratory and physical situation and recommended medical management. The patient's small bowel obstruction resolved without any placement of NG tube or any surgery. On day of discharge, she was ambulatory and had loose stools and diarrhea for which she requested probiotic treatment. The patient has a history of C. diff, but the patient did not feel that this diarrhea felt the same as C. diff or smell the same. No testing for C. diff was completed. The patient was also seen in consultation by Dr. Chacon and Dr. Ventura. The patient had repeat ultrasound on 07/22/17, which showed continued left hydronephrosis and no ureteral jet in the bladder. CT urogram on 07/23/17 showed left hydronephrosis and a small right pleural effusion. The patient was taken to the operating room on the and had a stent placed in the left ureter. She had some pain 2 days after on the left side, but this has resolved on the day of discharge. The patient should be seen in Dr. Ventura's office in the next week for surveillance of the stent and to plan for removal. Ultrasound completed on 07/25/17 showed resolution of hydronephrosis and some gallbladder sludge. The patient's electrolytes were abnormal on admission and due to her n.p.o. status, her potassium dropped to 3.3 and her magnesium dropped to 1.4. Her creatinine kadi to 1.18 during the hospital stay, but resolved down to 0.84 on discharge. On discharge, her potassium was 4.3 and her magnesium was 1.9. The patient was somewhat anemic on discharge with stable hematocrit of 31%. So, the patient had significantly elevated blood pressures in the hospital and she states that her primary care doctor had suggested treatment for hypertension. She had resisted this, but with diastolic blood pressures in the 150 to 120 range, the patient agreed to start amlodipine once per day. The patient should be seen in the primary care office the next week to titrate blood pressure medicine and to follow up on the above mentioned medical issues. DISPOSITION: To home with visiting nurse. ACTIVITY: As tolerated. DIET: Low salt. TIME SPENT: This took 45 minutes today with the patient for physical exam, discussion and coordination of discharge planning and documentation. [id number]/[facility] #: [id number] HERMELINDA
== END 2017-07-26 12:35 | disposition home or self-care (01) | DRG 389 ==
LOC: ED 03:45 → SSU 08:36 → OBSVTOIN 07-23 07:30
PROVIDERS: ADMIT Internal Medicine; ATTEND Internal Medicine
PROC: BT1FZZZ Fluoroscopy of Left Kidney, Ureter and Bladder (ICD-10-PCS; 2017-07-23)
PROC: 0T778DZ Dilation of Left Ureter with Intraluminal Device, Via Natural or Artificial Opening Endoscopic (ICD-10-PCS; principal; 2017-07-23 18:30)
DX: K56.609 Unspecified intestinal obstruction, unspecified as to partial versus complete obstruction (principal); N13.0 Hydronephrosis with ureteropelvic junction obstruction; M19.90 Unspecified osteoarthritis, unspecified site; H91.92 Unspecified hearing loss, left ear; K21.9 Gastro-esophageal reflux disease without esophagitis; G89.29 Other chronic pain; Z66 Do not resuscitate; M48.061 Spinal stenosis, lumbar region without neurogenic claudication; M51.36 Other intervertebral disc degeneration, lumbar region; R74.8 Abnormal levels of other serum enzymes; M41.86 Other forms of scoliosis, lumbar region; G43.909 Migraine, unspecified, not intractable, without status migrainosus; Z88.1 Allergy status to other antibiotic agents; Z88.5 Allergy status to narcotic agent; Z88.8 Allergy status to other drugs, medicaments and biological substances; Z86.19 Personal history of other infectious and parasitic diseases; Z92.21 Personal history of antineoplastic chemotherapy; Z85.038 Personal history of other malignant neoplasm of large intestine; Z90.710 Acquired absence of both cervix and uterus; Z82.49 Family history of ischemic heart disease and other diseases of the circulatory system; Z80.7 Family history of other malignant neoplasms of lymphoid, hematopoietic and related tissues; Z72.89 Other problems related to lifestyle; Z87.891 Personal history of nicotine dependence; Z92.3 Personal history of irradiation; Z85.05 Personal history of malignant neoplasm of liver; Z85.118 Personal history of other malignant neoplasm of bronchus and lung; Z90.49 Acquired absence of other specified parts of digestive tract; Z80.42 Family history of malignant neoplasm of prostate; R06.00 Dyspnea, unspecified; R00.0 Tachycardia, unspecified; E86.0 Dehydration
CPT/HCPCS: 36415; 71046; 74176; 74178; 74420; 76377; 76775; 80048; 80053; 81003; 82378; 83605; 83690; 83735; 84443; 84484; 85025; 93005; 99284; A9270-GY; C1876; G0378; J0360; J0696; J1100; J1644; J2704; J2765; J3010; J3475; Q9967

== ENCOUNTER 2017-10-01 09:30 | Day surgery (SDC) | payer MEDICARE ==
--- NOTE | 2017-09-23 21:03 | HP ---
CC: Dr. Mendel Cline; Dr. Cho * ADMITTING HISTORY AND PHYSICAL: DATE OF ADMISSION: 09/26/17 ADMITTING DIAGNOSIS: Left hydronephrosis. PLANNED PROCEDURE: Left ureteroscopy, possible balloon dilatation, and stent replacement. SURGEON: Dr. Ventura. HISTORY OF PRESENT ILLNESS: Sabiha Cho is an 82-year-old lady who had initially been evaluated in July of 2017. She had been noted to have left hydronephrosis likely secondary to ureteropelvic junction obstruction. She had undergone left retrograde and left stent insertion on 07/23/17. At that time, I had noted that there was narrowing at the level of the ureteropelvic junction , but also some narrowing in the proximal ureter just below the ureteropelvic junction and severe left hydronephrosis. She has a 90-pack year smoking history and because of the longstanding smoking history (quit in 1986) and the fact that there was some narrowing just below the ureteropelvic junction, she is now being brought in for further evaluation to rule out any mucosal lesions involving the ureter in the proximal ureter. PAST MEDICAL HISTORY: Significant for colon cancer with metastatic disease to lung and liver in 1998, who had a fairly dramatic response after surgery and chemotherapy and radiation and otherwise is in excellent health. MEDICATIONS ON ADMISSION: Multivitamins. No prescription medications. ALLERGIES AND INTOLERANCES: LEVAQUIN, CODEINE, ZOFRAN, COMPAZINE, DEMEROL, PHENERGAN, FLUOROQUINOLONES, and OPIATES. SOCIAL HISTORY: Smoking history: She has a 90-pack year smoking history quitting in 1986. PHYSICAL EXAMINATION GENERAL: Reveals a pleasant elderly lady, who is alert and oriented. VITAL SIGNS: Blood pressure is 136/84, pulse 105 per minute and regular, temperature 96.8, oxygen saturation 97% on room air. LUNGS: Clear bilaterally. CARDIOVASCULAR: Regular rate and rhythm. S1, S2. ABDOMEN: Soft with mild left flank tenderness. IMPRESSION: An 82-year-old lady with left hydronephrosis, who is status post left stent insertion in July of 2017. PLAN: Plan is left ureteroscopy, possible balloon dilatation, and stent replacement. [id number]/[facility] #: [id number] [facility]
[~2017-10-01 09:30] MED LIST: Buffered Lidocaine 0.9% SYRIN* 5 ML/SYR SYRINGE INTRADERM ONE; Dexamethasone IV* 4 MG/ML 1 ML (4 MG) IV SLOW PU ONE; Sodium Citrate/Citric Acid* 15 ML UDC PO ONE
[2017-10-01] MEDS ORDERED: Sodium Citrate/Citric Acid* 15 ML UDC ONE (09:50)
[2017-10-01] MEDS ORDERED: Dexamethasone IV* 4 MG/ML 1 ML (4 MG) ONE (09:50)
[2017-10-01] MEDS ORDERED: cefTRIAXone(*) 2 GM ADDV.VIAL IVPB ONE (09:50)
[2017-10-01] MEDS ORDERED: fentaNYL* 50 MCG/ML 2 ML VIAL (100 MCG VIAL) ONE (09:54)
[2017-10-01] MEDS ORDERED: Propofol* 10 MG/ML 20 ML BTL IV PUSH ONE (09:55)
[2017-10-01] MEDS ORDERED: Iohexol 180 (CONTRAST) 10 ML SDV IV ONE (10:04)
[2017-10-01] MEDS ORDERED: DiMENhydriNATE IV* 50 MG/ML VIAL IV PUSH PRN (10:05)
[2017-10-01] MEDS ORDERED: Naloxone* 0.4 MG/ML 1 ML VIAL IV PRN (10:05)
[2017-10-01] MEDS ORDERED: Metoclopramide IV* 5 MG/ML 2 ML VIAL ONE (10:19)
[2017-10-01] MEDS ORDERED: Lidocaine 2% PF * 5 ML VIAL ONE (11:04)
[2017-10-01] MEDS ORDERED: Esmolol* 10 MG/ML 10 ML (100 mg) ONE (11:12)
--- NOTE | 2017-10-01 11:37 | RAD ---
CPT II Codes: G9500 Indication: Left ureteral stent exchange, left ureteroscopy. Fluoroscopic services provided for referring physician. 26 seconds of fluoroscopy time was used. There is left hydronephrosis. Ureteral plasty was performed. Placement of a left ureteral stent. IMPRESSION: Fluoroscopic services provided for referring physician for left ureteroscopy and ureteral plasty. Placement of a left ureteral stent.
[2017-10-01] MEDS ORDERED: Acetaminophen TAB* 325 MG ONE (12:12)
[2017-10-01] MEDS ORDERED: Labetalol IV* 5 MG/ML 20 ML VIAL ONE (12:18)
[2017-10-01] MEDS ORDERED: Ondansetron INJ* 2 MG/ML VIAL ONE (12:54)
[2017-10-01 13:24] VITALS: BP 168/77
--- NOTE | 2017-10-02 02:54 | OP ---
CC: Dr. Mendel Cline * DATE OF OPERATION: 10/01/17 - [facility] DATE OF : 33 SURGEON: Yemi Ventura MD ANESTHESIOLOGIST: Ole Trimble MD ANESTHESIA: General. PRE-OP DIAGNOSES: 1. Left hydronephrosis. 2. Left ureteropelvic junction obstruction. POST-OP DIAGNOSES: 1. Left hydronephrosis. 2. Left ureteropelvic junction obstruction. OPERATIVE PROCEDURE: Cystoscopy, left stent removal, left retrograde pyelogram, left ureteroscopy, left pyeloscopy, left ureteral balloon dilatation, and left stent insertion. INDICATIONS: Sabiha Cho is an 82-year-old lady, who had initially undergone urgent left stent insertion. She is now being brought in for further evaluation and management of left hydronephrosis. OPERATIVE FINDINGS: Left hydronephrosis secondary to left ureteropelvic junction obstruction. COMPLICATIONS: None. STENT USED: 8.5-Dominican 28 cm Silicone stent, left ureter. POSTOPERATIVE CONDITION: Stable. DESCRIPTION OF PROCEDURE: After induction of general anesthesia, the patient was placed in dorsal lithotomy position. Sequential compression devices were in place and functioning. Initial cystoscopy revealed normal-appearing bladder and the previously placed stent was removed. Left retrograde pyelogram revealed left hydronephrosis with an appearance consistent with left ureteropelvic junction obstruction with high insertion of the renal pelvis. A 6 -Dominican semi-rigid ureteroscope was introduced and advanced under direct vision. The entire distal, mid, and proximal ureter were visualized. At the level of the ureteropelvic junction, there was some narrowing and tortuosity of the ureter and the ureteroscope was carefully advanced into the renal pelvis, which was dilated. There was no evidence of any lesions noted within the renal pelvis or the proximal ureter. Next, balloon dilatation of the left ureteropelvic junction and proximal ureter was successfully carried out under fluoroscopic monitoring. After that, an 8.5-Dominican 28 cm Silicone stent was introduced and positioned under fluoroscopy with good proximal and distal positioning obtained. The patient tolerated the procedure satisfactorily and was transferred back to the recovery area in stable condition. [id number]/[facility]PS #: [id number] [facility]
== END 2017-10-01 13:45 | disposition home or self-care (01) ==
LOC: OR 09:30
PROVIDERS: ATTEND Urology
DX: N13.0 Hydronephrosis with ureteropelvic junction obstruction (principal); Z85.038 Personal history of other malignant neoplasm of large intestine; Z85.05 Personal history of malignant neoplasm of liver; Z85.118 Personal history of other malignant neoplasm of bronchus and lung; Z87.891 Personal history of nicotine dependence
CPT/HCPCS: 74420; A9270-GY; C1876; J0696; J1100; J2405; J2704; J2765; J3010

== ENCOUNTER 2019-06-22 03:24 | Inpatient (IN) | payer MEDICARE ==
[2019-06-22] MEDS ORDERED: Ondansetron INJ* 2 MG/ML VIAL IV ONE (03:57)
[2019-06-22] MEDS: NS 0.9% 1000 ML** 1,000 ML IV ONE ×2 (04:15→05:26)
[2019-06-22 04:28] LABS: ABS Basophils 0.1 10^3/ul (0-0.2); ABS Eosinophils 0.1 10^3/ul (0-0.6); ABS Lymphocytes 1.2 10^3/ul (1.0-4.8); ABS Monocytes 0.7 10^3/ul (0-0.8); ABS Neutrophils 9.8 10^3/ul (1.5-7.7); Eosinophil % 0.7 %; Hematocrit 43 % (35-47); Hemoglobin 14.2 g/dL (12.0-16.0); Lymphocyte % 10.3 %; Mean Corpuscular HGB Conc 33 g/dL (31-36); Mean Corpuscular Hemoglobin 29 pg (27-31); Mean Corpuscular Volume 88 fL (80-97); Mean Platelet Volume 8.6 fL (7.4-10.4); Platelet Count 192 10^3/uL (150-450); Red Blood Count 4.84 10^6 /uL (3.70-4.87); Red Cell Distribution Width 14 % (10-15); White Blood Count 11.8 10^3/uL (3.5-10.8)
[2019-06-22 04:51] LABS: Albumin 4.2 g/dL (3.2-5.2); Albumin/Globulin Ratio 1.3 (1-3); Calcium 10.3 mg/dL (8.6-10.3); EGFR African American 49.7 (>60); EGFR Non-African American 41.1 (>60); Globulin 3.2 g/dL (2-4); Potassium 4.1 mmol/L (3.5-5.0); Total Bilirubin 0.6 mg/dL (0.2-1.0); Total Protein 7.4 g/dL (6.4-8.9)
[2019-06-22 04:53] LABS: Troponin I 0.01 ng/mL (<0.03)
--- NOTE | 2019-06-22 04:57 | ED ---
GI/ HPI - HPI Summary HPI Summary: Patient is an 84 y/o F presenting to [facility] via EMS with complaints of abdominal pain, N/V/D and feeling near syncopal. Patient states that abdominal pain and N/ V/D onset at around 2100 06/21/19. She states that while vomiting she had felt near syncopal. Fever denied. Patient states that she has had one episode of afib in 1994 after a "major" abdominal surgery. She denies any other episodes of afib and states that she is not on any medications for afib. 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 Patient had colorectal cancer "many " years ago, patient is in remission. PSHx of hysterectomy noted. Patient has been in isolation since April 2019. She refuses pain medications. Home medications and allergies are reviewed. - History of Current Complaint Chief Complaint: EDAbdPain Time Seen by Provider: 06/22/19 03:42 Stated Complaint: ABD PAIN PER EMS Hx Obtained From: Patient Onset/Duration: Started Hours Ago Timing: Lasting Hours Current Severity: Severe Pain Intensity: 8 Associated Signs and Symptoms: Positive: Syncope - NEAR, Nausea, Vomiting, Diarrhea, Abdominal Pain. Negative: Fever - Additional Pertinent History Primary Care Physician: [id number] - Allergy/Home Medications Allergies/Adverse Reactions: Allergies Allergy/AdvReac Type Severity Reaction Status Date / Time levofloxacin [From Levaquin] Allergy Intermediate Rash Verified 06/22/19 03:46 prochlorperazine Allergy Intermediate Swelling Verified 06/22/19 03:46 [From Compazine] codeine Allergy Mild Syncope Verified 06/22/19 03:46 ciprofloxacin [From Cipro] Allergy Rash Verified 06/22/19 03:46 naproxen [From Aleve] Allergy See Comment Verified 06/22/19 03:46 ondansetron [From Zofran] Allergy See Comment Verified 06/22/19 03:46 Quinolones Allergy See Comment Verified 06/22/19 03:46 granisetron [From Kytril] AdvReac Intermediate GI Upset Verified 06/22/19 03:46 meperidine [From Demerol] AdvReac Intermediate Vomiting Verified 06/22/19 03:46 promethazine [From Phenergan] AdvReac Intermediate GI Upset Verified 06/22/19 03 :46 ANTINAUSEA MEDS Allergy Severe "MAKES ME Uncoded 06/22/19 03:46 SICK" OPIOIDS Allergy Severe "MAKES ME Uncoded 06/22/19 03:46 SICK" MUSCLE RELAXER Allergy See Comment Uncoded 06/22/19 03:46 Home Medications: Home Medications Lactobacillus Acidophilus* 1 tab PO BID #60 tab 07/26/17 [Rx Confirmed 06/22/19] Lidocaine Patch REMOVE* 1 note PATCH OFF 0800 misc 07/26/17 [Rx Confirmed 06/21] Bacillus Coagulans/Inulin [Probiotic/Prebiotic] 2 cap PO BEDTIME 09/19/17 [ History Confirmed 06/22/19] Cyanocobalamin/Cobamamide [Vitamin B-12 5,000 Mcg Tab Sl] 1 each SL QAM [History Confirmed 06/22/19] Maitake Mushrooms 1 unit PO QAM 09/19/17 [History Confirmed 06/22/19] [place]-3 Fatty Acids (Nf) [Fish Oil (NF)] 3,000 mg PO BEDTIME 09/19/17 [History Confirmed 06/22/19] PMH/Surg Hx/FS Hx/Imm Hx Endocrine/Hematology History: Denies: Hx Anticoagulant Therapy, Hx Diabetes, Hx Thyroid Disease Cardiovascular History: Denies: Hx Congestive Heart Failure, Hx Deep Vein Thrombosis, Hx Hypertension - WAS ON NORVASC NO LONGER TAKING, Hx Myocardial Infarction, Hx Pacemaker/ICD Respiratory History: Denies: Hx Asthma, Hx Chronic Obstructive Pulmonary Disease (COPD), Hx Lung Cancer, Hx Pneumonia, Hx Pulmonary Embolism GI History: Reports: Hx Gastroesophageal Reflux Disease, Hx Obstructive Bowel, Other GI Disorders - anastamosis s/p surgery/impaction s/p c-diff Denies: Hx Gall Bladder Disease, Hx Gastrointestinal Bleed, Hx Ulcer, Hx Urosepsis History: Denies: Hx Kidney Stones, Hx Renal Disease Musculoskeletal History: Reports: Hx Arthritis - OSTEO, Other Musculoskeletal History - SPINAL STENOSIS Sensory History: Reports: Hx Cataracts, Hx Contacts or Glasses - GLASSES, Hx Hearing Problem - left ear Denies: Hx Hearing Aid Opthamlomology History: Reports: Hx Cataracts, Hx Contacts or Glasses - GLASSES Neurological History: Reports: Hx Migraine - TAKES MAX.COVERED COFFEE BEANS AND IT SUBSIDES Denies: Hx Dementia, Hx Seizures, Hx Transient Ischemic Attacks (TIA) Psychiatric History: Denies: Hx Anxiety, Hx Depression, Hx Schizophrenia, Hx Bipolar Disorder, Hx Substance Abuse - Cancer History Cancer Type, Location and Year: 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 Colon Surgery x 3. Hysterectomy, appendectomy, lymph node removed from abd. POWER PORT [place] NO LONGER HAS PORT Hx Anesthesia Reactions: No Infectious Disease History: No Infectious Disease History: Reports: Hx Clostridium Difficile Denies: Hx Hepatitis, Hx Human Immunodeficiency Virus (HIV), Traveled Outside the [place] in Last 30 Days - Family History Known Family History: Positive: Cardiac Disease, Other - lymphoma Negative: Hypertension, Diabetes - Social History Alcohol Use: Occasionally Alcohol Amount: 1 GLASS WINE Substance Use Type: Reports: None Hx Tobacco Use: No Smoking Status (MU): Former Smoker Amount Used/How Often: 3PPD Have You Smoked in the Last Year: No - Additional Comments History Additional Comments: PMHx of afib, c.diff, stricture of left ureter junction, and colorectal CA PSHx of hysterectomy Review of Systems - ROS Summary Review of Systems Summary: Home Medications Medication Instructions Recorded Confirmed Type Lactobacillus Acidophilus* 1 tab PO BID #60 tab 07/26/17 06/22/19 Rx Lidocaine Patch REMOVE* 1 note PATCH OFF 0800 misc 07/26/17 06/22/19 Rx Bacillus Coagulans/Inulin 2 cap PO BEDTIME 09/19/17 06/22/19 History [Probiotic/Prebiotic] Cyanocobalamin/Cobamamide [Vitamin 1 each SL QAM 09/19/17 06/22/19 History B-12 5,000 Mcg Tab Sl] Maitake Mushrooms 1 unit PO QAM 09/19/17 06/22/19 History [place]-3 Fatty Acids (Nf) [Fish Oil 3,000 mg PO BEDTIME 09/19/17 06/22/19 History (NF)] Negative: Fever Positive: Abdominal Pain, Vomiting, Diarrhea, Nausea Positive: Syncope - NEAR All Other Systems Reviewed And Are Negative: Yes Physical Exam - Summary Physical Exam Summary: General: Well-developed, Well-nourished female. No acute distress. HEENT: Normocephalic, Atraumatic. Eyes: Conjuctiva normal, PERRL. Oropharynx: Clear, mucous membranes moist, (-) exudates. Neck: Soft, FROM, (-) lymphadenopathy, (-) thyromegaly, (-) JVD. Cardiovascular: Normal sinus rhythm, (-) murmur. Lungs: Clear to auscultation bilaterally (-) wheezes, (-) rales, (-) rhonchi. Abdomen: Soft, non-tender, non-distended, (-) organomegaly, normal bowel sounds. Back: (-) CVA tenderness Extremities: No edema. Skin: Warm, dry, (-) rash. Neuro: Alert and oriented x3, moves all extremities equally. No ataxia. No gait disturbance. No sensory deficit. Normal strength, normal sensation. Psychiatric: Mood normal, affect normal. Triage Information Reviewed: Yes Vital Signs On Initial Exam: Initial Vitals Pulse Pulse Ox 104 99 06/22/19 03:29 06/22/19 03:29 Vital Signs Reviewed: Yes Procedures - Sedation Patient Received Moderate/Deep Sedation with Procedure: No Diagnostics - Vital Signs Vital Signs Temp Pulse Resp BP Pulse Ox 06/22/19 04:37 224/110 06/22/19 04:25 28 232/131 06/22/19 04:00 97 24 99 06/22/19 03:39 103 17 200/146 100 06/22/19 03:36 99.1 F 105 20 182/124 99 06/22/19 03:29 104 99 - Laboratory Lab Results: Lab Results 06/22/19 06/22/19 06/22/19 Range/Units 04:16 04:16 04:16 WBC 11.8 H (3.5-10.8) 10^3/uL RBC 4.84 (3.70-4.87) 10^6 /uL Hgb 14.2 (12.0-16.0) g/dL Hct 43 (35-47) % MCV 88 (80-97) fL MCH 29 (27-31) pg MCHC 33 (31-36) g/dL RDW 14 (10-15) % Plt Count 192 (150-450) 10^3/uL MPV 8.6 (7.4-10.4) fL Neut % (Auto) 82.7 % Lymph % (Auto) 10.3 % Gilliam % (Auto) 5.8 % Eos % (Auto) 0.7 % Baso % (Auto) 0.5 % Absolute Neuts (auto) 9.8 H (1.5-7.7) 10^3/ul Absolute Lymphs (auto) 1.2 (1.0-4.8) 10^3/ul Absolute Monos (auto) 0.7 (0-0.8) 10^3/ul Absolute Eos (auto) 0.1 (0-0.6) 10^3/ul Absolute Basos (auto) 0.1 (0-0.2) 10^3/ul Absolute Nucleated RBC 0.0 10^3/ul Nucleated RBC % 0.0 INR (Anticoag Therapy) 1.00 (0.82-1.09) Lactic Acid 1.4 (0.5-2.0) mmol/L Result Diagrams: 06/22/19 04:16 06/22/19 04:16 Lab Statement: Any lab studies that have been ordered have been reviewed, and results considered in the medical decision making process. - Radiology CXR Radiology Interpretation Completed By: ED Physician Summary of Radiographic Findings: No infiltrate, no pleural effusion, no acute process, pending official report. - CT ct abd/pel CT Interpretation Completed By: Radiologist Summary of CT Findings: IMPRESSION: 1. Partial small bowel obstruction. Dilated loops of small bowel located in the. left flank region and central abdomen. Exact transition is not clearly defined. Distal small bowel is collapsed. Moderate amount of feces and air located in. this proximal colon. No abnormal bowel wall thickening. 2. Severe left-sided hydronephrosis. This may represent a UPJ obstruction. New. lying 3. The previously noted hypodense lesion in the inferior aspect of the. right lobe of the liver is not clearly seen. New lying 3. 5 mm nodule located. in the periphery of the left lower lung.For patients at low risk (minimal or. absent history of smoking and of other known risk factors), no routine. follow-up is indicated. For patients at high risk (history of smoking or of. other known risk factors), consider optional CT at 12 months. (bacilio Hansen. al., Fleischner Society, 2017). 3. Severe dilatation of the left Pilar calyceal system and pelvis. This may. represent in the obstruction at the ureteral pelvic junction. 4. Severe thoracolumbar dextroscoliosis with multilevel degenerative lumbar. disc disease and facet disease. THIS REPORT WAS REVIEWED BY ED PHYSICIAN. - EKG 0409 Cardiac Rate: Tachycardia - rate of 109 BPM EKG Rhythm: Sinus Tachycardia Summary of EKG Findings: EKG showed sinus tachycardia with rate of 109 BPM, no STEMI. ED physician has reviewed and interpreted this EKG. 0515 Cardiac Rate: Tachycardia - rate of 104 BPM EKG Rhythm: Sinus Tachycardia Summary of EKG Findings: EKG showed sinus tachycardia with rate of 104 BPM, no STEMI. ED physician has reviewed and interpreted this EKG. Re-Evaluation - Re-Evaluation First Eval Re-Evaluation Time: 05:15 Comment: Patient's HR dropped to 30s-40s temporarily but then spontaneously improved to 100s. GIGU Course/Dx - Course Course Of Treatment: 84-year-old female presents from home by ambulance with vomiting and diarrhea. Patient states she's had belly pain since about 9:00. Started having nausea. Then vomiting. Had an episode in her bathroom where she felt like she might pass out. She did not. Did have some diarrhea as well. Patient does have a history of small bowel obstruction as well as hydronephrosis. She has a distant history of colon cancer with radiation. Currently denies any fevers. No chest pain or shortness of breath. en route patient was tachycardic and presumed to be in atrial fibrillation. She does admit to one episode of atrial fibrillation many years ago after a major abdominal surgery. Upon arrival she appears to be in sinus tach with PACs. Actively vomiting. No blood in the emesis. It is not black or coffee ground. She is mildly ill appearing. Appears in mild discomfort. Mild diffuse tenderness throughout her abdomen. Tachycardic. Afebrile. laboratories demonstrated a slightly elevated white count. Elevated TSH. renal insufficiency noted. CT scan demonstrated small bowel obstruction. NG tube placed. Patient referred to hospitalist for admission. . During ED course, patient received fluids, Zofran 4 mg IV and Diltiazem 10 mg IV. - Diagnoses Provider Diagnoses: SBO (small bowel obstruction), Elevated blood pressure reading, Hydronephrosis - Physician Notifications Discussed Care Of Patient With: Phil Us Time Discussed With Above Provider: 06:30 Instructed by Provider To: Other - Patient's case was discussed with Dr. Us , Dr. Us accepts for admission. - Critical Care Time Critical Care Statement: Critical care time is provided exclusive of any time spent performing procedures. Discharge ED - Sign-Out/Discharge Documenting (check all that apply): Patient Departure - admit - Discharge Plan Condition: Stable Disposition: ADMITTED TO [facility] - Billing Disposition and Condition Condition: STABLE Disposition: Admitted to [facility] - Attestation Statements Document Initiated by Scribe: Yes Documenting Scribe: DAVON ARGUETA Provider For Whom Scribe is Documenting (Include Credential): VERONIQUE MCNAIR MD Scribe Attestation: IDAVON, scribed for VERONIQUE MCNAIR MD on 06/22/19 at 2248. Scribe Documentation Reviewed: Yes Provider Attestation: The documentation as recorded by the DAVON nolasco accurately reflects the service I personally performed and the decisions made by me, VERONIQUE MCNAIR MD Status of Scribe Document: Viewed
[2019-06-22] MEDS ORDERED: Diltiazem IV push/loading dose 5 MG/ML 5 ML vial (25 mg) IV SLOW PU ONE (05:05)
[2019-06-22 05:08] LABS: TSH (Thyroid Stimulating Horm) 8.27 mcIU/mL (0.34-5.60)
[2019-06-22] MEDS ORDERED: Iodixanol* (CONTRAST) 320 MG/ML 100 ML SDV IV ONE (05:36)
[2019-06-22] MEDS ORDERED: Nitro 2% OINT* (Nitroglycerin) 1 INCH/PAK PAK TOPICAL ONE (08:05)
[2019-06-22] MEDS ORDERED: Morphine INJ* 2 MG/ML 1 ML SYRINGE (TWO MG - NEW SYRINGE VERSION) IV PRN ×2 (08:35→21:27)
[2019-06-22] MEDS ORDERED: Acetaminophen TAB* 325 MG PO PRN (08:41)
[2019-06-22] MEDS ORDERED: NS 0.9% 1000 ML** 1,000 ML IV SCH (08:45)
[2019-06-22] MEDS: Metoprolol Tartrate IV* 1 MG/ML 5 ML VIAL IV SCH ×2 (09:01→14:31)
[2019-06-22 09:05] LABS: Urine Appearance Clear; Urine Bilirubin Negative (Negative); Urine Blood Negative (Negative); Urine Color Straw; Urine Glucose Negative (Negative); Urine Ketones Negative (Negative); Urine Nitrite Negative (Negative); Urine Protein Negative (Negative); Urine Specific Gravity 1.016 (1.010-1.030); Urine Urobilinogen Negative (Negative)
--- NOTE | 2019-06-22 10:15 | HP ---
CC: Dr. Cline; Dr. Ventura* HISTORY AND PHYSICAL: DATE OF ADMISSION: 06/22/19 PRIMARY CARE PROVIDER: Dr. Cline. CHIEF COMPLAINT: Abdominal pain, nausea, vomiting. HISTORY OF PRESENT ILLNESS: Sabiha Cho is an 84-year-old female with history of metastatic colon cancer that was diagnosed in 1998 status post resection, chemo, and radiation. The patient currently is in remission despite that she previously was diagnosed with metastasis to the liver and lung. She has had problems with intermittent small bowel obstruction and left-sided ureteral obstruction likely due to scarring. She had stent placement in the left ureter in 2018 for a similar presentation. Today, she stated that she is still having left- sided abdominal pain for the past 8 hours and that she vomited twice. She also had an episode of 1 loose bowel movement. She denies any fevers. No urinary symptoms were present. She came in to the ED for evaluation. She vomited once again. She was noted to have partial small bowel obstruction and severe left-sided hydronephrosis on the CT of the abdomen performed in the ED. The patient is going to be admitted to the hospital with diagnosis of small bowel obstruction and hydronephrosis. PAST MEDICAL HISTORY: 1. Chronic kidney disease, stage 3 with creatinine baseline at 1.2. 2. 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 3. History of stage IV colon cancer in 1998 with metastasis to the lungs, liver status post radiation, chemo, and bowel resection, currently in remission. 4. Recurrent C. diff. 5. Chronic osteoarthritic back pain. 6. The patient has history of right bundle-branch block and left bundle-branch block. 7. The patient also has history of transient atrial fibrillation that was noted postoperatively 20 years ago that resolved spontaneously. MEDICATIONS: At home include: 1. Spar[place]-3 fatty acids 3000 mg at bedtime. 2. Maitake mushrooms 1 tablet daily. 3. Lidocaine patch daily. 4. Acidophilus 1 tablet b.i.d. 5. Vitamin B12 5000 mcg daily. ALLERGIES: Include LEVAQUIN, COMPAZINE, CARDENE, ZOFRAN, DEMEROL, PHENERGAN, and "all ANTINAUSEA MEDICATIONS." The patient also lists OPIATES on her allergy list. FAMILY HISTORY: Mother with history of Hodgkin's lymphoma, at the age of 76. Father in his 60s due to heart disease. Maternal grandmother of pancreatic cancer in her 60s. SOCIAL HISTORY: The patient has a 30-year history of 3 packs per day smoking, quit in 1986. She denies any alcohol or drug use. She lives with her daughter and healthcare proxy, Felisha Enriquez. Felisha lives with her partner in the upstairs apartment and the patient lives downstairs. The patient is a do-not- resuscitate. REVIEW OF SYSTEMS: Please see history of present illness. All the remaining 12 systems were reviewed with the patient and were otherwise negative. PHYSICAL EXAMINATION GENERAL: The patient is a pleasant 84-year-old female, who is in no acute distress, the patient is alert and oriented x3. VITAL SIGNS: Blood pressure of 179/120, heart rate of 124 and regular, respiratory rate 24, oxygen saturation 98% on room air, temperature of 99.1. HEENT: Head: Atraumatic, normocephalic. Eyes: Pupils are equal, reactive to light and accommodation. Oropharynx clear. Mucosa moist. NECK: Supple. No JVD. No bruits bilaterally. RESPIRATORY: Clear to auscultation bilaterally. CARDIOVASCULAR: Regular rate and rhythm. No murmur. ABDOMEN: Slightly distended, especially on the left side. Tender in the left upper and lower quadrants with no rebound, no guarding. Bowel sounds are hypoactive, but present in all 4 quadrants. There is no flank tenderness on bilateral flank evaluation. EXTREMITIES: There is no edema. Pulses +2 bilaterally. No clubbing or cyanosis. NEUROLOGIC: On neuro evaluation, speech clear. Cranial nerves II through XII grossly intact. Motor strength is 5/5 bilaterally. PSYCHIATRIC: On psychiatric evaluation, pleasant and cooperative with evaluation with no evidence of anxiety, depression. SKIN: On evaluation of the skin, no ecchymotic areas or rashes noted. DIAGNOSTIC STUDIES/LABORATORY DATA: White blood cell count of 11.8, hemoglobin of 14.2, hematocrit of 43, and platelets of 192. Sodium was 141, potassium 4.1, chloride 107, carbon dioxide 24, BUN 31, creatinine 1.24. Liver function tests unremarkable. Brain natriuretic peptide was 66. TSH of 8.27. Urinalysis pending at the time of dictation. CT abdomen and pelvis obtained today, impression, "partial small bowel obstruction with dilated loops of small bowel located in the left flank region and central abdomen. Exact transition is not clearly defined. Distal small bowel is collapsed. Moderate amount of feces and air located in the proximal colon. No abnormal bowel wall thickening. Severe left-sided hydronephrosis. This may represent UP junction obstruction. The previously noted hyperdense lesion in the inferior aspect of the right lobe of the liver is not clearly seen. New 5 mm nodule located in the periphery of the left lower lung. For patients at low risk, no routine followup indicated. For patients at high risk , consider optional CT in 12 months. Severe dilatation of the left calyceal system and pelvis. This may represent obstruction of the ureteropelvic junction. Severe thoracolumbar dextroscoliosis with multiple level degenerative lumbar disk disease and facet disease." The patient's EKG obtained in the emergency department showed left anterior hemiblock and right bundle-branch block with sinus tachycardia with a heart rate of 104 beats per minute. Compared with prior EKG in 2018, right bundle is similar, the left anterior hemiblock appears to be new, although per the patient 's history, she has history of left bundle-branch block in the past. ASSESSMENT AND PLAN: 1. Partial small bowel obstruction. The patient is going to be placed on n.p.o. status with support of intravenous hydration. It is possible that a partial SBO developed in combination with left-sided hydronephrosis. She had similar presentation in 2018 when she received stent to the left ureter. 2. In regards of severe left-sided hydronephrosis, I discussed the case with Dr. Ventura. He stated that the patient does have history of chronic left-sided hydronephrosis, but it was not severe in May 2019 when the patient had an ultrasound performed as outpatient. At this point, Dr. Ventura recommends a bladder ultrasound to evaluate for left-sided ureteral jets. If that is present , the patient likely has a chronic obstruction and does not need to be intervened on. At this point, the patient is going to be placed n.p.o. and bladder scan is going to be obtained. 3. For DVT prophylaxis, the patient is going to be placed on heparin subcutaneously. 4. In regards to the patient's code status, the patient wished to be a do-not- resuscitate and [id number] and the MOLST form was signed. TIME SPENT: Approximately 65 minutes were spent on the admission of this patient, more than half of that time was spent [id number] with the patient during the interview and physical exam. [id number]/[facility] #: [id number] HERMELINDA
[2019-06-22] MEDS: hydrALAZINE IV* 20 MG/ML VIAL IV SLOW PU PRN ×2 (12:42→18:53)
[2019-06-22 13:44] LABS: Free T4 1.04 ng/dL (0.61-1.12)
--- NOTE | 2019-06-22 14:31 | CONS ---
CC: Dr. Cline; Dr. Yemi Ventura* UROLOGY CONSULTATION: DATE OF CONSULT: 06/22/19 REQUESTING PHYSICIAN: Dr. Ferreira. DIAGNOSES: 1. Left hydronephrosis. 2. History of congenital left ureteropelvic junction obstruction. HISTORY OF PRESENT ILLNESS: Sabiha Cho is an 84-year-old lady with a history of congenital left ureteropelvic junction obstruction. She had initially been evaluated and treated in 2018 with balloon dilatation and left ureteral stenting and has actually done very well with no recurrence of flank pain. Recent sonogram done in May in my office revealed chronic mild-to- moderate left hydronephrosis and left ureteral jet was noted. She is now admitted for left lower quadrant pain and nausea and denies any flank pain. There is no complaint of dysuria or gross hematuria. She has not had any recent urinary tract infection. Her evaluation in the emergency room consisted of a CT scan (which I reviewed personally in detail) which revealed findings consistent with partial small bowel obstruction and also she was noted to have significant left-sided hydronephrosis. PAST MEDICAL HISTORY: Significant for: 1. Chronic left hydronephrosis. 2. History of stage IV colon cancer diagnosed in 1998 with widespread metastatic disease, which has been in remission for many years now. 3. Chronic osteoarthritis. 4. Right and left bundle branch block. 5. Chronic kidney disease. MEDICATIONS: 1. Vitamin B12 5000 mcg daily. 2. Multiple vitamins and supplements. ALLERGIES AND INTOLERANCES: COMPAZINE, ZOFRAN, LEVAQUIN, DEMEROL, PHENERGAN and OPIATES. FAMILY HISTORY: Negative for kidney or bladder cancer or kidney stones. SOCIAL HISTORY: Smoking history: She has an 80- to [id number] smoking history and she quit in 1986. REVIEW OF SYSTEMS: She is otherwise in excellent health. She denies any chest pain or shortness of breath. PHYSICAL EXAM: Reveals a pleasant, comfortable-appearing elderly lady. She states that her pain is significantly reduced in comparison to at the time of presentation and is localized to the left lower quadrant. She again denies any flank pain. Blood pressure is 180/90, heart rate 100 per minute, respirations 20 per minute, temperature 99.1. Cardiovascular Exam: Regular rate and rhythm. S1, S2. Lungs are clear bilaterally. Abdomen is soft with minimal distention. There is very mild left lower quadrant tenderness without any rebound or guarding. There is no flank tenderness. DIAGNOSTIC STUDIES/LAB DATA: I reviewed the labs and this reveals her BUN and creatinine are relatively stable at 31 and 1.24 and I reviewed the CT which revealed left hydronephrosis without any obstructing calculi noted. She also had a bladder ultrasound done, which revealed bilateral ureteral jets. IMPRESSION AND PLAN: In summary, in the absence of any flank pain with a relatively stable creatinine and bilateral jets noted on the ultrasound, I do not think that she requires any intervention in terms of the chronic hydronephrosis at the present time. I discussed this in detail with Ms. Cho and will be available if there is any change in her clinical condition with regard to the genitourinary system. Otherwise, I recommended that she call me once she is home and I will follow her up as an outpatient in the next 3 to 4 weeks with a repeat ultrasound in the office. [id number]/[facility] #: [id number] HERMELINDA
[2019-06-22] MEDS: Heparin VIAL(*) 5000 UNITS/ML VIAL (FIVE THOUSAND) SUBCUT SCH ×2 (14:34→22:39)
[2019-06-22] MEDS: Metoprolol Tartrate TAB* 25 MG PO SCH (18:02)
[2019-06-22] MEDS ORDERED: Metoclopramide IV* 5 MG/ML 2 ML VIAL IV PRN ×2 (21:26→21:42)
[2019-06-22] MEDS ORDERED: Lactated Ringers 1000 ML Bag* 1,000 ML IV SCH (23:00)
[2019-06-23 06:05] LABS: ABS Basophils 0.1 10^3/ul (0-0.2); ABS Eosinophils 0.1 10^3/ul (0-0.6); ABS Lymphocytes 1.4 10^3/ul (1.0-4.8); ABS Monocytes 0.7 10^3/ul (0-0.8); ABS Neutrophils 6.6 10^3/ul (1.5-7.7); Eosinophil % 0.8 %; Hematocrit 33 % (35-47); Hemoglobin 11.2 g/dL (12.0-16.0); Lymphocyte % 15.5 %; Mean Corpuscular HGB Conc 34 g/dL (31-36); Mean Corpuscular Hemoglobin 30 pg (27-31); Mean Corpuscular Volume 88 fL (80-97); Mean Platelet Volume 8.7 fL (7.4-10.4); Platelet Count 153 10^3/uL (150-450); Red Blood Count 3.71 10^6 /uL (3.70-4.87); Red Cell Distribution Width 14 % (10-15); White Blood Count 8.8 10^3/uL (3.5-10.8)
[2019-06-23 06:16] LABS: Calcium 8.9 mg/dL (8.6-10.3); EGFR African American 56.5 (>60); EGFR Non-African American 46.7 (>60); Potassium 3.8 mmol/L (3.5-5.0)
[2019-06-23] MEDS: Metoprolol Tartrate TAB* 25 MG PO SCH (06:21)
[2019-06-23] MEDS: Heparin VIAL(*) 5000 UNITS/ML VIAL (FIVE THOUSAND) SUBCUT SCH ×3 (06:22→22:08)
[2019-06-23] MEDS: hydrALAZINE IV* 20 MG/ML VIAL IV SLOW PU PRN ×2 (14:25→23:38)
--- NOTE | 2019-06-23 15:21 | PN ---
Subjective Date of Service: 06/23/19 Interval History: Patient reports that the nausea has resolved and the her left lower quadrant abd pain is improved, reports only pain with palpation. Dose report tenderness to her upper epigastric region. Reports that she had a large bowel movement. Patient currently denies chest pain or shortness of breath. Denies n/v/d. Denies fever or chills. Family History: Unchanged from Admission Social History: Unchanged from Admission Past Medical History: Unchanged from Admission Objective Active Medications: Acetaminophen (Tylenol Tab*) 650 mg PO Q4H PRN PRN Reason: PAIN-MILD/TEMP >/= 100.4 Acetaminophen (Tylenol 650 Mg Supp) 650 mg MD Q4H PRN PRN Reason: MILD PAIN or TEMP > 100.4 Heparin Sodium (Porcine) (Heparin Vial(*)) 5,000 units SUBCUT Q8HR [facility] Last Admin: 06/23/19 14:20 Dose: 5,000 units Hydralazine HCl (Apresoline Iv*) 5 mg IV SLOW PU Q6H PRN PRN Reason: HTN Last Admin: 06/23/19 14:25 Dose: 5 mg Metoclopramide HCl (Reglan Iv*) 5 mg IV Q6H PRN PRN Reason: NAUSEA/VOMITING Last Admin: 06/23/19 07:39 Dose: 5 mg Metoprolol Tartrate (Lopressor Tab*) 25 mg PO Q12H [facility] Last Admin: 06/23/19 06:21 Dose: 25 mg Morphine Sulfate (Morphine Inj (Syringe))*) 1 mg IV Q4H PRN PRN Reason: PAIN - SEVERE Vital Signs - 8 hr 06/23/19 06/23/19 06/23/19 07:34 07:45 11:24 Temperature 98.9 F 98.5 F Pulse Rate 97 98 Respiratory 18 18 16 Rate Blood Pressure 149/67 178/92 (mmHg) O2 Sat by Pulse 98 95 Oximetry Oxygen Devices in Use Now: None Appearance: alert and orientedx3 resting in bed, no acute distress, appears younger than stated age. Eyes: No Scleral Icterus Ears/Nose/Mouth/Throat: Clear Oropharnyx, Mucous Membranes Moist Neck: NL Appearance and Movements; NL JVP, Trachea Midline Respiratory: Symmetrical Chest Expansion and Respiratory Effort, Clear to Auscultation Cardiovascular: NL Sounds; No Murmurs; No JVD, No Edema Abdominal: NL Sounds; No Tenderness; No Distention Extremities: No Edema, No Clubbing, Cyanosis Skin: No Rash or Ulcers Neurological: Alert and Oriented x 3 Nutrition: Taking PO's Result Diagrams: 06/23/19 05:52 06/23/19 05:52 Additional Lab and Data: Lab Results 06/22/19 06/22/19 06/22/19 Range/Units 04:16 04:16 04:16 WBC 11.8 H (3.5-10.8) 10^3/uL RBC 4.84 (3.70-4.87) 10^6 /uL Hgb 14.2 (12.0-16.0) g/dL Hct 43 (35-47) % MCV 88 (80-97) fL MCH 29 (27-31) pg MCHC 33 (31-36) g/dL RDW 14 (10-15) % Plt Count 192 (150-450) 10^3/uL MPV 8.6 (7.4-10.4) fL Neut % (Auto) 82.7 % Lymph % (Auto) 10.3 % Scurry % (Auto) 5.8 % Eos % (Auto) 0.7 % Baso % (Auto) 0.5 % Absolute Neuts (auto) 9.8 H (1.5-7.7) 10^3/ul Absolute Lymphs (auto) 1.2 (1.0-4.8) 10^3/ul Absolute Monos (auto) 0.7 (0-0.8) 10^3/ul Absolute Eos (auto) 0.1 (0-0.6) 10^3/ul Absolute Basos (auto) 0.1 (0-0.2) 10^3/ul Absolute Nucleated RBC 0.0 10^3/ul Nucleated RBC % 0.0 INR (Anticoag Therapy) 1.00 (0.82-1.09) Lactic Acid 1.4 (0.5-2.0) mmol/L Assess/Plan/Problems-Billing Assessment: - Patient Problems (1) Partial small bowel obstruction Current Visit: Yes Status: Acute Code(s): K56.600 - PARTIAL INTESTINAL OBSTRUCTION, UNSPECIFIED TO CAUSE SNOMED Code(s): 635961637 Comment: Patient reports that she had a large bowel movement today - reports that the nasuea has subsided - will repeat KUB x ray in the AM - advance diet to full liquids (2) Hydronephrosis, left Current Visit: No Status: Acute Code(s): N13.30 - UNSPECIFIED HYDRONEPHROSIS SNOMED Code(s): 72288192 Comment: Chronic hydronephrosis - creatinine is at baseline - bladder ultrasound showed bilateral urethral jets - Dr. Charles consulted and has recommended outpatient follow up - no need for stents at this time (3) Hypertension Current Visit: Yes Status: Acute Code(s): I10 - ESSENTIAL (PRIMARY) HYPERTENSION SNOMED Code(s): 77821541 Comment: Patient has been hypertensive since admission - Started metoprolol 25 mg BID- increased to 37.5 mg today as SBP 149-179 today - will continue to monitor (4) DVT prophylaxis Current Visit: No Status: Acute Code(s): TRZ7976 - SNOMED Code(s): 235861261 (5) DNR (do not resuscitate) Current Visit: No Status: Acute Status and Disposition: discharge home when medically stable
[2019-06-23] MEDS ORDERED: Metoprolol Tartrate TAB* 25 MG PO SCH (15:23)
[2019-06-24 06:07] LABS: ABS Eosinophils 0.2 10^3/ul (0-0.6); ABS Lymphocytes 1.5 10^3/ul (1.0-4.8); ABS Monocytes 0.6 10^3/ul (0-0.8); ABS Neutrophils 3.3 10^3/ul (1.5-7.7); Eosinophil % 3.4 %; Hematocrit 31 % (35-47); Hemoglobin 10.6 g/dL (12.0-16.0); Lymphocyte % 26.1 %; Mean Corpuscular HGB Conc 34 g/dL (31-36); Mean Corpuscular Hemoglobin 30 pg (27-31); Mean Corpuscular Volume 88 fL (80-97); Mean Platelet Volume 9.1 fL (7.4-10.4); Platelet Count 136 10^3/uL (150-450); Red Blood Count 3.53 10^6 /uL (3.70-4.87); Red Cell Distribution Width 14 % (10-15); White Blood Count 5.6 10^3/uL (3.5-10.8)
[2019-06-24] MEDS: Heparin VIAL(*) 5000 UNITS/ML VIAL (FIVE THOUSAND) SUBCUT SCH ×2 (06:11→14:15)
[2019-06-24 06:22] LABS: BUN/Creatinine Ratio 16.2 (8-20); Calcium 8.9 mg/dL (8.6-10.3); EGFR African American 56.5 (>60); EGFR Non-African American 46.7 (>60); Potassium 3.4 mmol/L (3.5-5.0)
[2019-06-24] MEDS ORDERED: Metoprolol Tartrate TAB* 25 MG PO SCH (09:00)
[2019-06-24 11:14] VITALS: BP 165/80
--- NOTE | 2019-06-24 19:29 | DS ---
DISCHARGE SUMMARY: DATE OF ADMISSION: 06/22/19 DATE OF DISCHARGE: 06/24/19 PROVIDER: Angelica Osborn NP PRIMARY CARE PROVIDER: Dr. Cline. CONSULTING PHYSICIAN: Dr. Ventura. ATTENDING PHYSICIAN WHILE IN THE HOSPITAL: Dr. Vicki Ferreira* (dictated by Angelica Osborn NP). PRIMARY DIAGNOSES: 1. Possible partial small bowel obstruction. 2. Severe left-sided hydronephrosis. 3. Hypertension. SECONDARY DIAGNOSES: 1. Chronic kidney disease, stage 3, at baseline. 2. 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 3. 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 4. Recurrent Clostridium difficile. 5. Chronic osteoarthritic pain. 6. History of right bundle branch block and left bundle branch block. 7. History of transient episode of atrial fibrillation. STUDIES COMPLETED WHILE IN THE HOSPITAL: She had a chest x-ray on 06/22/19: No evidence of acute disease. She had a CT of the abdomen and pelvis, which showed: 1. Partial small bowel obstruction, dilated loops of small bowel in the left flank region and central abdomen. Exact transition is not clearly defined. 2. Distal small bowel is collapsed. Moderate amount of feces and air located in the proximal colon. No abnormal bowel wall thickening. Severe left-sided hydronephrosis. This may represent a UPJ obstruction. 3. The previously noted hypodense lesion in the inferior aspect of the right lobe of the liver is not clearly seen. 4. A 5-mm nodule located in the periphery of the left lower lung. I would recommend followup, consider a CT at 12 months. 5. Severe dilatation of the left pelvicalyceal system of the pelvis. This may represent an obstruction of the ureteropelvic junction. 6. Severe thoracolumbar dextroscoliosis with multilevel degenerative lumbar disk disease and facet disease. She had a bladder ultrasound, which showed bilateral ureteral jets. She had an abdominal x-ray on 06/24/19: Stable nonspecific bowel gas patterns. She had an electrocardiogram, which showed sinus rhythm at a rate of 61, right bundle branch block. CONSULTATION: She was seen in consultation by Dr. Ventura from Urology due to severe hydronephrosis. His impression: In summary, in the absence of any flank pain with relatively stable creatinine and bilateral ureteral jets noted on the ultrasound, I do not think she requires intervention in terms of chronic hydronephrosis at the present time. It is recommended that she follow up with him in the office as an outpatient in 3 to 4 weeks for repeat ultrasound. DISCHARGE MEDICATIONS: New home medication: Metoprolol 37.5 mg p.o. b.i.d. Continued home medications: 1. [place]-3 fatty acids 3000 mg p.o. at bedtime. 2. [place] mushrooms 1 unit p.o. q.a.m. 3. Lidocaine patch daily. 4. Lactobacillus 1 tab p.o. b.i.d. 5. Vitamin B12 5000 mcg sublingual. 6. Probiotic 2 caps p.o. at bedtime. HISTORY OF PRESENT ILLNESS AND HOSPITAL COURSE: Ms. Cho is an 84-year- old female with a past medical history significant for metastatic colon cancer, diagnosed in 1998, status post resection, chemo and radiation, who is currently in remission despite that she previously was diagnosed with metastases to the liver and lungs. She had problem with intermittent bowel obstruction and left- sided ureteral obstruction likely due to scarring. She had a stent placement in the left ureter in 2018 for a similar presentation. The patient on the day of admission was complaining of left-sided abdominal pain and vomiting for approximately 8 hours prior to arrival. She had 1 episode of loose bowel movement. She denied any fever. No urinary symptoms were present. Due to her symptoms, she presented to the emergency room for further evaluation. While in the emergency room, she had routine lab work drawn. She had a CT of the abdomen and pelvis, which showed a partial small bowel obstruction and severe left- sided hydronephrosis. She was admitted to the hospital with a diagnosis of small bowel obstruction and hydronephrosis. She was seen in consultation by Dr. Ventura from Urology, who has recommended no stenting at this time as the patient does have bilateral ureteral jets, no flank pain, afebrile, and no obstructing stone in the left ureter and to follow up with him in 3 to 4 weeks in the office for repeat ultrasound. While in the hospital, the patient was started on a clear liquid diet. She was given IV fluids. She did have a large bowel movement with resolution of her abdominal pain and nausea. She was advanced to a bland diet and was able to tolerate her diet without any nausea or vomiting. She has minimal epigastric pain related to the vomiting and very mild left lower quadrant pain, which she reports has much improved since admission to the hospital. The patient continued to pass flatus and was able to tolerate a diet and at this time, she is stable for discharge home. REVIEW OF SYSTEMS: The patient denies any fever, chills. Denies any chest pain or shortness of breath. She denies any cough, hemoptysis. She does complain of very mild left lower quadrant abdominal pain with palpation that has much improved since her admission and mild epigastric tenderness, which is also improved since admission. PHYSICAL EXAMINATION: Her abdomen is soft. Her bowel sounds are active x4. Extremities: She is able to move all 4 extremities. There is no clubbing or cyanosis. Pedal pulses are +2 bilaterally. Neurologic: She is awake, alert, oriented x3. Speech is clear. Thought process is intact. There are no gross focal deficits. Skin is intact. At this time, Ms. Cho is stable for discharge home. DISCHARGE PLAN: Ms. Cho will be discharged home. Activity as tolerated. 1. Partial small bowel obstruction. The patient was given IV fluids during this hospitalization. She was started on a clear liquid diet and advanced to a soft bland diet and was able to tolerate the diet without any nausea, vomiting, or increased abdominal pain. She has been passing flatus. She has also had a large bowel movement. Given the improvement of her symptoms and likely the resolution of her partial small bowel obstruction, she is stable to discharge home. I have recommended that she continue on a soft bland diet and advance her diet slowly. Should the patient develop any significant abdominal pain, fevers, recurrence of nausea and vomiting, she should return to the emergency room for further evaluation. 2. Severe left hydronephrosis. She was seen in consultation by Dr. Ventura from Urology. Given the patient had no obstructing stone, bilateral ureteral jets on the bladder ultrasound and stable creatinine, no intervention with stenting was needed at this time. The patient is to follow up with Dr. Ventura in 3 to 4 weeks for repeat ultrasound. The patient again should return to the emergency room if she has severe left flank pain, fevers, urinary symptoms, or any other concerns. 3. Hypertension. The patient was hypertensive throughout her hospitalization with blood pressure ranging from 131 to 232 over 55 to 146. Given the significant elevation in her blood pressure, she was started on metoprolol tartrate initially 12.5, increased to 37.5. She tolerated this medicine without difficulty. I have told the patient to monitor her blood pressure when she returns home and to discuss further recommendations on blood pressure management with her primary care provider. I have prescribed her metoprolol 37.5 mg twice daily. She should hold this medication for systolic blood pressure less than 120 or heart rate less than 60. 4. FEN: She can continue on a soft bland diet. 5. Code status: She is a DNR. 6. The patient should return to the emergency room for any chest pain, shortness of breath, fever, chills, severe or worsening abdominal pain associated with vomiting and nausea, or any other concerning symptoms. 7. She should follow up with her primary care provider in 4 to 7 days. She should follow up with Dr. Ventura in 3 to 4 weeks for repeat ultrasound in regards to her severe left hydronephrosis. CONDITION ON DISCHARGE: Stable. DISPOSITION ON DISCHARGE: Home. TIME SPENT: Time spent on this discharge was 45 minutes, greater than half that time was spent at the bedside reviewing events leading thus far to her hospitalization, performing physical exam, and reviewing my plan of care. I have discussed this with my attending, Dr. Vicki Ferreira; she is in agreement with my plan. ANGELICA OSBORN, [place] [id number]/[facility] #: [id number] HERMELINDA
== END 2019-06-24 15:24 | disposition home or self-care (01) | DRG 389 ==
LOC: ED 03:24 → SSU 08:41
PROVIDERS: ADMIT Internal Medicine; ATTEND Internal Medicine
DX: K56.600 Partial intestinal obstruction, unspecified as to cause (principal); N13.30 Unspecified hydronephrosis; I45.2 Bifascicular block; N18.3 Chronic kidney disease, stage 3 (moderate); K21.9 Gastro-esophageal reflux disease without esophagitis; M48.00 Spinal stenosis, site unspecified; G43.909 Migraine, unspecified, not intractable, without status migrainosus; M47.819 Spondylosis without myelopathy or radiculopathy, site unspecified; Z66 Do not resuscitate; I12.9 Hypertensive chronic kidney disease with stage 1 through stage 4 chronic kidney disease, or unspecified chronic kidney disease; Z96.0 Presence of urogenital implants; Z88.1 Allergy status to other antibiotic agents; Z88.5 Allergy status to narcotic agent; Z88.8 Allergy status to other drugs, medicaments and biological substances; Z88.6 Allergy status to analgesic agent; Z85.038 Personal history of other malignant neoplasm of large intestine; Z85.118 Personal history of other malignant neoplasm of bronchus and lung; Z92.21 Personal history of antineoplastic chemotherapy; Z92.3 Personal history of irradiation; Z87.891 Personal history of nicotine dependence; Z85.05 Personal history of malignant neoplasm of liver; Z79.899 Other long term (current) drug therapy
CPT/HCPCS: 36415; 71045; 74018; 74177; 76857; 80048; 80053; 81003; 83605; 83735; 83880; 84439; 84443; 84484; 85025; 85610; 93005; 96361; 96374; 99284; A9270-GY; J0360; J1644; J2405; J2765; J3490; Q9967

== ENCOUNTER 2019-11-01 12:04 | Inpatient (IN) ==
[2019-11-01 12:49] LABS: ABS Lymphocytes 0.6 10^3/ul (1.0-4.8); ABS Monocytes 0.4 10^3/ul (0-0.8); ABS Neutrophils 6.9 10^3/ul (1.5-7.7); Eosinophil % 0.3 %; Hematocrit 38 % (35-47); Hemoglobin 13.2 g/dL (12.0-16.0); Lymphocyte % 7.1 %; Mean Corpuscular HGB Conc 35 g/dL (31-36); Mean Corpuscular Hemoglobin 31 pg (27-31); Mean Corpuscular Volume 89 fL (80-97); Nucleated Red Blood Cells % 0.1; Platelet Count 215 10^3/uL (150-450); Red Blood Count 4.31 10^6 /uL (3.70-4.87); Red Cell Distribution Width 14 % (10-15); White Blood Count 7.8 10^3/uL (3.5-10.8)
[2019-11-01 13:11] LABS: ALT 9 U/L (7-52); Albumin 4.2 g/dL (3.2-5.2); Albumin/Globulin Ratio 1.3 (1-3); Alkaline Phosphatase 99 U/L (34-104); BUN/Creatinine Ratio 21.8 (8-20); Blood Urea Nitrogen 29 mg/dL (6-24); CO2 Carbon Dioxide 26 mmol/L (22-32); Calcium 10.2 mg/dL (8.6-10.3); Chloride 102 mmol/L (101-111); EGFR African American 45.9 (>60); EGFR Non-African American 37.9 (>60); Globulin 3.2 g/dL (2-4); Glucose 145 mg/dL (70-100); Magnesium 2.3 mg/dL (1.9-2.7); Sodium 138 mmol/L (135-145); Total Protein 7.4 g/dL (6.4-8.9)
[2019-11-01] MEDS ORDERED: Iodixanol (CONTRAST) 320 MG/ML 100 ML SDV IV ONE (13:30)
[2019-11-01 13:38] LABS: Anion Gap 10 mmol/L (2-11)
[2019-11-01 13:53] LABS: TSH Ultra Thyroid Stim Horm 3.64 mcIU/mL (0.34-5.60)
[2019-11-01 16:45] LABS: Urine Appearance Cloudy; Urine Bilirubin Negative (Negative); Urine Blood Negative (Negative); Urine Color Yellow; Urine Glucose Negative (Negative); Urine Ketones Negative (Negative); Urine Nitrite Negative (Negative); Urine Protein Negative (Negative); Urine Urobilinogen Negative (Negative)
[2019-11-01 17:05] LABS: INR 1.03 (0.82-1.09)
[2019-11-01 17:27] LABS: BUN/Creatinine Ratio 23.2 (8-20); EGFR African American 49.3 (>60); EGFR Non-African American 40.7 (>60); Potassium 4.3 mmol/L (3.5-5.0)
[2019-11-01] MEDS: NS 0.9% 1000 ml BAG 1,000 ML IV SCH (17:30)
[2019-11-01] MEDS: Heparin 5000 UNITS/ML 1 mL VIAL SUBCUT SCH ×2 (17:39→23:17)
[2019-11-01] MEDS: Metoprolol Tartrate 5 mg VIAL 5 ml VIAL (1 mg/ml) IV SCH (22:34)
[2019-11-02] MEDS: Metoprolol Tartrate 5 mg VIAL 5 ml VIAL (1 mg/ml) IV SCH ×2 (04:03→10:31)
[2019-11-02] MEDS: NS 0.9% 1000 ml BAG 1,000 ML IV SCH ×2 (04:03→14:09)
[2019-11-02 05:38] LABS: ABS Eosinophils 0.1 10^3/ul (0-0.6); ABS Lymphocytes 1.2 10^3/ul (1.0-4.8); ABS Monocytes 0.5 10^3/ul (0-0.8); ABS Neutrophils 4.2 10^3/ul (1.5-7.7); Eosinophil % 2.3 %; Hematocrit 34 % (35-47); Hemoglobin 11.5 g/dL (12.0-16.0); Lymphocyte % 19.9 %; Mean Corpuscular HGB Conc 34 g/dL (31-36); Mean Corpuscular Hemoglobin 31 pg (27-31); Mean Corpuscular Volume 90 fL (80-97); Mean Platelet Volume 9.3 fL (7.4-10.4); Platelet Count 168 10^3/uL (150-450); Red Blood Count 3.77 10^6 /uL (3.70-4.87); Red Cell Distribution Width 14 % (10-15); White Blood Count 6.1 10^3/uL (3.5-10.8)
[2019-11-02 05:52] LABS: BUN/Creatinine Ratio 22.8 (8-20); Calcium 9.2 mg/dL (8.6-10.3); EGFR African American 48.4 (>60); Potassium 3.9 mmol/L (3.5-5.0)
[2019-11-02] MEDS: Heparin 5000 UNITS/ML 1 mL VIAL SUBCUT SCH ×3 (09:04→23:29)
[2019-11-02] MEDS ORDERED: Ondansetron ODT 4 mg TAB 4 MG TAB SL PRN (13:47)
[2019-11-03] MEDS: NS 0.9% 1000 ml BAG 1,000 ML IV SCH (01:29)
[2019-11-03] MEDS ORDERED: Labetalol IV 5 MG/ML 20 ml VIAL IV PUSH ONE (04:17)
[2019-11-03 06:52] LABS: Calcium 8.3 mg/dL (8.6-10.3); Magnesium 1.8 mg/dL (1.9-2.7); Potassium 3.8 mmol/L (3.5-5.0)
[2019-11-03 06:57] LABS: EGFR African American 50.7 (>60); EGFR Non-African American 41.9 (>60)
[2019-11-03] MEDS: Heparin 5000 UNITS/ML 1 mL VIAL SUBCUT SCH (07:54)
[2019-11-03] MEDS ORDERED: hydrALAZINE 20 mg/ml 1 ML Vial IV IV SLOW PU ONE (08:45)
[2019-11-03] MEDS ORDERED: Magnesium Sulfate 2 gm BAG 2 GM/50 ML BAG IVPB ONE (09:52)
[2019-11-03 12:05] VITALS: BP 129/61
== END 2019-11-03 15:30 | disposition home or self-care (01) | DRG 389 ==
LOC: ED 12:04 → MED 15:47 → MEDTELE 23:37
PROVIDERS: ADMIT Internal Medicine; ATTEND Internal Medicine

== ENCOUNTER 2020-01-20 06:43 | Inpatient (IN) ==
[2020-01-20 07:04] LABS: ABS Basophils 0.1 10^3/ul (0-0.2); ABS Eosinophils 0.1 10^3/ul (0-0.6); ABS Lymphocytes 0.9 10^3/ul (1.0-4.8); ABS Monocytes 0.5 10^3/ul (0-0.8); ABS Neutrophils 6.2 10^3/ul (1.5-7.7); Eosinophil % 1.9 %; Hematocrit 39 % (35-47); Lymphocyte % 11.8 %; Mean Corpuscular HGB Conc 34 g/dL (31-36); Mean Corpuscular Hemoglobin 30 pg (27-31); Mean Corpuscular Volume 89 fL (80-97); Mean Platelet Volume 8.6 fL (7.4-10.4); Platelet Count 192 10^3/uL (150-450); Red Blood Count 4.37 10^6 /uL (3.70-4.87); Red Cell Distribution Width 14 % (10-15); White Blood Count 7.8 10^3/uL (3.5-10.8)
[2020-01-20 07:23] LABS: Troponin I 0.01 ng/mL (<0.03)
[2020-01-20 07:24] LABS: Albumin 4.2 g/dL (3.2-5.2); Albumin/Globulin Ratio 1.3 (1-3); BUN/Creatinine Ratio 27.7 (8-20); C Reactive Protein 6.89 mg/L (<8.01); Calcium 9.8 mg/dL (8.6-10.3); EGFR Non-African American 38.8 (>60); Globulin 3.2 g/dL (2-4); Potassium 3.9 mmol/L (3.5-5.0); Total Bilirubin 0.7 mg/dL (0.2-1.0); Total Protein 7.4 g/dL (6.4-8.9)
[2020-01-20] MEDS ORDERED: NS 0.9% 1000 ml BAG 1,000 ML IV ONE (07:34)
[2020-01-20] MEDS ORDERED: Iodixanol (CONTRAST) 320 MG/ML 100 ML SDV IV ONE (07:40)
[2020-01-20] MEDS ORDERED: Morphine 2 MG/ML SYRINGE IV ONE (08:44)
[2020-01-20] MEDS ORDERED: Morphine 2 MG/ML SYRINGE IV PRN ×2 (10:22→21:05)
[2020-01-20 10:27] LABS: Urine Appearance Clear; Urine Color Straw; Urine Ketones Negative (Negative); Urine Specific Gravity 1.005 (1.010-1.030); Urine Urobilinogen Negative (Negative)
[2020-01-20 10:28] LABS: Urine Blood Negative (Negative); Urine Nitrite Negative (Negative); Urine Protein Negative (Negative)
[2020-01-20 10:29] LABS: Urine Bilirubin Negative (Negative); Urine Glucose Negative (Negative)
[2020-01-20] MEDS ORDERED: NS 0.9% 1000 ml BAG 1,000 ML IV SCH ×2 (10:30→19:45)
[2020-01-20] MEDS ORDERED: hydrALAZINE 20 mg/ml 1 ML Vial IV IV SLOW PU ONE (10:56)
[2020-01-20] MEDS ORDERED: Labetalol IV 5 MG/ML 20 ml VIAL IV PUSH ONE (11:16)
[2020-01-20 13:41] LABS: Magnesium 2.1 mg/dL (1.9-2.7)
[2020-01-20] MEDS ORDERED: Ondansetron 4 mg VIAL 2 MG/ML 2 ml VIAL ONE (14:52)
[2020-01-20] MEDS ORDERED: nitroGLYCERIN DRIP 25,000 MCG/250 ML BTL IV SCH (16:00)
[2020-01-20] MEDS: Heparin 5000 UNITS/ML 1 mL VIAL SUBCUT SCH ×2 (18:09→21:44)
[2020-01-21] MEDS: NS 0.9% 1000 ml BAG 1,000 ML IV SCH ×2 (01:29→02:51)
[2020-01-21] MEDS ORDERED: NS 0.9% 1000 ml BAG 1,000 ML IV ONE (01:53)
[2020-01-21 05:49] LABS: ABS Lymphocytes 0.7 10^3/ul (1.0-4.8); ABS Monocytes 0.5 10^3/ul (0-0.8); ABS Neutrophils 6.8 10^3/ul (1.5-7.7); Eosinophil % 0.1 %; Hematocrit 35 % (35-47); Hemoglobin 11.8 g/dL (12.0-16.0); Lymphocyte % 8.8 %; Mean Corpuscular HGB Conc 34 g/dL (31-36); Mean Corpuscular Hemoglobin 30 pg (27-31); Mean Corpuscular Volume 89 fL (80-97); Mean Platelet Volume 8.1 fL (7.4-10.4); Platelet Count 181 10^3/uL (150-450); Red Blood Count 3.94 10^6 /uL (3.70-4.87); Red Cell Distribution Width 14 % (10-15)
[2020-01-21] MEDS: Heparin 5000 UNITS/ML 1 mL VIAL SUBCUT SCH ×3 (05:58→21:13)
[2020-01-21 06:05] LABS: Calcium 9.1 mg/dL (8.6-10.3); EGFR African American 50.6 (>60); EGFR Non-African American 41.8 (>60); Potassium 4.2 mmol/L (3.5-5.0)
[2020-01-21] MEDS: Lactated Ringers 1000 ml BAG 1,000 ML IV SCH (12:30)
[2020-01-22] MEDS: Heparin 5000 UNITS/ML 1 mL VIAL SUBCUT SCH ×3 (05:19→21:47)
[2020-01-22] MEDS: Lactated Ringers 1000 ml BAG 1,000 ML IV SCH (08:08)
[2020-01-22] MEDS: Nitro 2% OINT (Nitroglycerin) 1 INCH/PAK TOPICAL SCH (16:44)
[2020-01-22] MEDS ORDERED: Nitro 2% OINT (Nitroglycerin) 1 INCH/PAK TOPICAL ONE (18:15)
[2020-01-23] MEDS ORDERED: Nitro Patch/OINT Remove PATCH TOPICAL SCH
[2020-01-23 02:53] LABS: Troponin I 0.04 ng/mL (<0.03)
[2020-01-23 05:54] LABS: ABS Eosinophils 0.2 10^3/ul (0-0.6); ABS Lymphocytes 1.4 10^3/ul (1.0-4.8); ABS Monocytes 0.6 10^3/ul (0-0.8); ABS Neutrophils 3.5 10^3/ul (1.5-7.7); Eosinophil % 2.8 %; Hematocrit 32 % (35-47); Hemoglobin 10.6 g/dL (12.0-16.0); Lymphocyte % 24.6 %; Mean Corpuscular HGB Conc 33 g/dL (31-36); Mean Corpuscular Hemoglobin 30 pg (27-31); Mean Corpuscular Volume 90 fL (80-97); Mean Platelet Volume 8.7 fL (7.4-10.4); Nucleated Red Blood Cells % 0.1; Platelet Count 149 10^3/uL (150-450); Red Blood Count 3.52 10^6 /uL (3.70-4.87); Red Cell Distribution Width 14 % (10-15); White Blood Count 5.7 10^3/uL (3.5-10.8)
[2020-01-23 06:11] LABS: BUN/Creatinine Ratio 20.9 (8-20); Calcium 8.6 mg/dL (8.6-10.3); EGFR Non-African American 47.1 (>60); Magnesium 1.7 mg/dL (1.9-2.7); Potassium 3.4 mmol/L (3.5-5.0)
[2020-01-23 06:19] LABS: Troponin I 0.03 ng/mL (<0.03)
[2020-01-23] MEDS: Heparin 5000 UNITS/ML 1 mL VIAL SUBCUT SCH ×3 (06:34→21:54)
[2020-01-23] MEDS: Nitro 2% OINT (Nitroglycerin) 1 INCH/PAK TOPICAL SCH (08:15)
[2020-01-23] MEDS ORDERED: Nitro 2% OINT (Nitroglycerin) 1 INCH/PAK TOPICAL ONE (16:41)
[2020-01-23] MEDS ORDERED: Potassium Chlor 20 meq TAB.ER PO ONE (17:11)
[2020-01-23] MEDS ORDERED: Magnesium Sulfate 2 gm BAG 2 GM/50 ML BAG IVPB ONE (17:12)
[2020-01-23] MEDS ORDERED: Nitro Patch/OINT Remove PATCH TOPICAL ONE (23:00)
[2020-01-24] MEDS: Heparin 5000 UNITS/ML 1 mL VIAL SUBCUT SCH ×3 (05:36→21:55)
[2020-01-24 06:10] LABS: ABS Basophils 0.1 10^3/ul (0-0.2); ABS Eosinophils 0.2 10^3/ul (0-0.6); ABS Lymphocytes 1.6 10^3/ul (1.0-4.8); ABS Monocytes 0.6 10^3/ul (0-0.8); ABS Neutrophils 3.5 10^3/ul (1.5-7.7); Eosinophil % 3.4 %; Hematocrit 31 % (35-47); Hemoglobin 10.5 g/dL (12.0-16.0); Mean Corpuscular HGB Conc 34 g/dL (31-36); Mean Corpuscular Hemoglobin 30 pg (27-31); Mean Corpuscular Volume 89 fL (80-97); Mean Platelet Volume 9.3 fL (7.4-10.4); Platelet Count 150 10^3/uL (150-450); Red Cell Distribution Width 14 % (10-15); White Blood Count 5.9 10^3/uL (3.5-10.8)
[2020-01-24 06:32] LABS: Anion Gap 6 mmol/L (2-11); BUN/Creatinine Ratio 15.4 (8-20); Blood Urea Nitrogen 18 mg/dL (6-24); CO2 Carbon Dioxide 22 mmol/L (22-32); Calcium 8.7 mg/dL (8.6-10.3); Chloride 110 mmol/L (101-111); EGFR African American 53.1 (>60); EGFR Non-African American 43.9 (>60); Glucose 113 mg/dL (70-100); Magnesium 2.2 mg/dL (1.9-2.7); Potassium 3.9 mmol/L (3.5-5.0); Sodium 138 mmol/L (135-145)
[2020-01-24] MEDS ORDERED: Nitro 2% OINT (Nitroglycerin) 1 INCH/PAK TOPICAL SCH (08:00)
[2020-01-24] MEDS ORDERED: Isosorbide Mononit ER 30mg TAB PO SCH (09:00)
[2020-01-24 09:43] LABS: TSH Ultra Thyroid Stim Horm 4.58 mcIU/mL (0.34-5.60)
[2020-01-24 09:45] LABS: Free T4 1.15 ng/dL (0.61-1.12)
[2020-01-24 09:54] LABS: Thyroid Peroxidase Antibodies 7.17 IU/mL (<9)
[2020-01-24 09:55] LABS: Vitamin B12 > 1450 pg/mL (180-914)
[2020-01-24 10:00] LABS: Vitamin D Total 25(OH) 49.7 ng/mL (20-50)
[2020-01-24 10:04] LABS: Thyroglobulin Antibody II 4.1 IU/mL (<4.0)
[2020-01-24] MEDS ORDERED: Nitro Patch/OINT Remove PATCH TOPICAL SCH (13:45)
[2020-01-24] MEDS ORDERED: Magnesium Sulfate IV 1GM/100ML 1 GM/100 ML BAG IV ONE (18:20)
[2020-01-25] MEDS: Heparin 5000 UNITS/ML 1 mL VIAL SUBCUT SCH ×3 (05:37→21:22)
[2020-01-25 06:38] LABS: ABS Eosinophils 0.2 10^3/ul (0-0.6); ABS Lymphocytes 1.2 10^3/ul (1.0-4.8); ABS Monocytes 0.6 10^3/ul (0-0.8); ABS Neutrophils 4.4 10^3/ul (1.5-7.7); Eosinophil % 2.5 %; Hematocrit 29 % (35-47); Hemoglobin 10.3 g/dL (12.0-16.0); Lymphocyte % 18.8 %; Mean Corpuscular HGB Conc 35 g/dL (31-36); Mean Corpuscular Hemoglobin 31 pg (27-31); Mean Corpuscular Volume 88 fL (80-97); Mean Platelet Volume 9.8 fL (7.4-10.4); Platelet Count 147 10^3/uL (150-450); Red Blood Count 3.33 10^6 /uL (3.70-4.87); Red Cell Distribution Width 14 % (10-15); White Blood Count 6.4 10^3/uL (3.5-10.8)
[2020-01-25 07:02] LABS: BUN/Creatinine Ratio 15.7 (8-20); Calcium 8.6 mg/dL (8.6-10.3); EGFR Non-African American 42.2 (>60); Magnesium 2.1 mg/dL (1.9-2.7); Potassium 3.8 mmol/L (3.5-5.0)
[2020-01-25] MEDS: Nitroglycerin 0.1 mg/hr PATCH (2.5 mg) TRANSDERM SCH ×2 (16:28→21:15)
[2020-01-26] MEDS ORDERED: Nitro Patch/OINT Remove PATCH PATCH OFF SCH (06:00)
[2020-01-26] MEDS: Heparin 5000 UNITS/ML 1 mL VIAL SUBCUT SCH ×2 (06:35→14:36)
[2020-01-26] MEDS ORDERED: Dextran 70/Hypromellose Tears Eye Drops 15 ml BTL (for Artificials Tears) BOTH EYES PRN (14:33)
[2020-01-26 15:56] VITALS: BP 143/65
== END 2020-01-26 16:30 | disposition home or self-care (01) | DRG 389 ==
LOC: ED 06:43 → OBSVTOIN 10:22 → MED 10:22 → INTOOBSV 10:22 → ICU 14:09 → SSU 01-22 17:28
PROVIDERS: ADMIT Pediatrics; ATTEND Student in an Organized Health Care Education/Training Program

== ENCOUNTER 2021-05-14 16:38 | Inpatient (IN) ==
[2021-05-14 18:24] LABS: ABS Eosinophils 0.1 10^3/ul (0-0.6); ABS Lymphocytes 0.9 10^3/ul (1.0-4.8); ABS Monocytes 0.7 10^3/ul (0-0.8); ABS Neutrophils 4.8 10^3/ul (1.5-7.7); Eosinophil % 1.6 %; Hematocrit 34 % (35-47); Hemoglobin 11.6 g/dL (12.0-16.0); Lymphocyte % 13.8 %; Mean Corpuscular HGB Conc 34 g/dL (31-36); Mean Corpuscular Hemoglobin 30 pg (27-31); Mean Corpuscular Volume 89 fL (80-97); Mean Platelet Volume 8.2 fL (7.4-10.4); Platelet Count 173 10^3/uL (150-450); Red Blood Count 3.86 10^6 /uL (3.70-4.87); Red Cell Distribution Width 16 % (10-15); White Blood Count 6.6 10^3/uL (3.5-10.8)
[2021-05-14 18:27] LABS: INR 1.13 (0.86-1.15)
[2021-05-14 19:21] LABS: Albumin 3.6 g/dL (3.2-5.2); Calcium 9.1 mg/dL (8.6-10.3); Potassium 4.5 mmol/L (3.5-5.0); Total Bilirubin 0.7 mg/dL (0.2-1.0)
[2021-05-14 19:27] LABS: Albumin/Globulin Ratio 1.6 (1-3); Globulin 2.3 g/dL (2-4); Total Protein 5.9 g/dL (6.4-8.9); eGFR CKD-EPI 17.8 (>60)
[2021-05-14 20:18] LABS: High Sensitivity Troponin 1 Hr 13 pg/mL (<15)
[2021-05-14] MEDS ORDERED: Nitroglycerin 0.1 mg/hr PATCH (2.5 mg) TRANSDERM SCH (22:15)
[2021-05-14] MEDS ORDERED: NS 0.9% 1000 ml BAG 1,000 ML IV SCH (22:30)
[2021-05-15 05:48] LABS: ABS Eosinophils 0.1 10^3/ul (0-0.6); ABS Lymphocytes 0.7 10^3/ul (1.0-4.8); ABS Monocytes 0.7 10^3/ul (0-0.8); ABS Neutrophils 4.8 10^3/ul (1.5-7.7); Eosinophil % 1.5 %; Hematocrit 32 % (35-47); Lymphocyte % 11.7 %; Mean Corpuscular HGB Conc 34 g/dL (31-36); Mean Corpuscular Hemoglobin 30 pg (27-31); Mean Corpuscular Volume 87 fL (80-97); Mean Platelet Volume 8.1 fL (7.4-10.4); Platelet Count 162 10^3/uL (150-450); Red Blood Count 3.66 10^6 /uL (3.70-4.87); Red Cell Distribution Width 16 % (10-15); White Blood Count 6.4 10^3/uL (3.5-10.8)
[2021-05-15 06:04] LABS: Calcium 8.8 mg/dL (8.6-10.3); Potassium 4.6 mmol/L (3.5-5.0); eGFR CKD-EPI 19.7 (>60)
[2021-05-15] MEDS: Heparin 5000 UNITS/ML 1 mL VIAL SUBCUT SCH ×3 (06:18→22:01)
[2021-05-15] MEDS: Nitroglycerin 0.2 mg/hr PATCH (5 mg) TRANSDERM SCH ×2 (06:18→20:20)
[2021-05-15 13:07] LABS: Urine Creatinine Concentration 98.11 mg/dL
[2021-05-15 13:46] LABS: Urine Appearance Clear; Urine Bacteria Absent (Absent); Urine Bilirubin Negative (Negative); Urine Blood 1+ (Negative); Urine Color Yellow; Urine Glucose Negative (Negative); Urine Ketones Negative (Negative); Urine Nitrite Negative (Negative); Urine Protein Negative (Negative); Urine Red Blood Cell Trace(0-2/hpf) (Absent); Urine Specific Gravity 1.014 (1.002-1.030); Urine Squamous Epithelial Cell Present (Absent); Urine Urobilinogen Negative (Negative); Urine White Blood Cell Trace(0-5/hpf) (Absent)
[2021-05-15] MEDS ORDERED: Furosemide 20 mg/2 ml IV VIAL IV ONE (22:11)
[2021-05-15 22:56] LABS: Magnesium 1.8 mg/dL (1.9-2.7)
[2021-05-15] MEDS ORDERED: Magnesium Sulfate 2 gm BAG 2 GM/50 ML BAG IVPB ONE (22:57)
[2021-05-16 05:41] LABS: ABS Eosinophils 0.1 10^3/ul (0-0.6); ABS Lymphocytes 0.8 10^3/ul (1.0-4.8); ABS Monocytes 0.6 10^3/ul (0-0.8); ABS Neutrophils 3.5 10^3/ul (1.5-7.7); Hematocrit 30 % (35-47); Hemoglobin 10.2 g/dL (12.0-16.0); Lymphocyte % 16.1 %; Mean Corpuscular HGB Conc 34 g/dL (31-36); Mean Corpuscular Hemoglobin 29 pg (27-31); Mean Corpuscular Volume 87 fL (80-97); Mean Platelet Volume 8.4 fL (7.4-10.4); Platelet Count 153 10^3/uL (150-450); Red Blood Count 3.47 10^6 /uL (3.70-4.87); Red Cell Distribution Width 16 % (10-15); White Blood Count 5.1 10^3/uL (3.5-10.8)
[2021-05-16 05:57] LABS: Calcium 8.7 mg/dL (8.6-10.3); Magnesium 1.7 mg/dL (1.9-2.7); Potassium 4.5 mmol/L (3.5-5.0); eGFR CKD-EPI 19.6 (>60)
[2021-05-16] MEDS: Heparin 5000 UNITS/ML 1 mL VIAL SUBCUT SCH ×3 (06:09→22:58)
[2021-05-16] MEDS ORDERED: Magnesium Sulfate IV 3 GM in NS 0.9% 100 ml BAG 100 ML IVPB ONE (07:16)
[2021-05-16] MEDS ORDERED: Magnesium Sulfate 2 GM IV (Premix) IVPB ONE (08:00)
[2021-05-16] MEDS ORDERED: Magnesium Sulfate 1 GM IV 1 GM/100 ML BAG IV ONE (09:00)
[2021-05-16] MEDS: Neomycin/Polymy/Dex OPTH.SUSP MAXITROL 0.1% 5 ML BOTH EYES SCH ×2 (18:28→23:57)
[2021-05-16] MEDS: Nitroglycerin 0.2 mg/hr PATCH (5 mg) TRANSDERM SCH (20:17)
[2021-05-17] MEDS: Neomycin/Polymy/Dex OPTH.SUSP MAXITROL 0.1% 5 ML BOTH EYES SCH ×6 (00:31→22:28)
[2021-05-17 06:13] LABS: ABS Eosinophils 0.2 10^3/ul (0-0.6); ABS Monocytes 0.8 10^3/ul (0-0.8); ABS Neutrophils 4.3 10^3/ul (1.5-7.7); Eosinophil % 2.6 %; Hematocrit 31 % (35-47); Hemoglobin 10.1 g/dL (12.0-16.0); Lymphocyte % 16.3 %; Mean Corpuscular HGB Conc 33 g/dL (31-36); Mean Corpuscular Hemoglobin 29 pg (27-31); Mean Corpuscular Volume 88 fL (80-97); Mean Platelet Volume 9.1 fL (7.4-10.4); Nucleated Red Blood Cells % 0.2; Platelet Count 173 10^3/uL (150-450); Red Blood Count 3.48 10^6 /uL (3.70-4.87); Red Cell Distribution Width 16 % (10-15); White Blood Count 6.3 10^3/uL (3.5-10.8)
[2021-05-17 06:30] LABS: Calcium 8.7 mg/dL (8.6-10.3); Magnesium 2.7 mg/dL (1.9-2.7); Potassium 4.8 mmol/L (3.5-5.0); eGFR CKD-EPI 19.6 (>60)
[2021-05-17] MEDS: Heparin 5000 UNITS/ML 1 mL VIAL SUBCUT SCH ×3 (06:31→21:40)
[2021-05-17] MEDS: Nitroglycerin 0.2 mg/hr PATCH (5 mg) TRANSDERM SCH (21:38)
[2021-05-18] MEDS ORDERED: hydrALAZINE 20 mg/ml 1 ML Vial IV IV SLOW PU ONE (00:08)
[2021-05-18] MEDS ORDERED: Furosemide 40 mg/4 ml IV VIAL IV ONE (00:27)
[2021-05-18] MEDS: Neomycin/Polymy/Dex OPTH.SUSP MAXITROL 0.1% 5 ML BOTH EYES SCH ×6 (01:07→22:36)
[2021-05-18 02:15] LABS: Calcium 8.7 mg/dL (8.6-10.3); Magnesium 2.3 mg/dL (1.9-2.7); Potassium 4.7 mmol/L (3.5-5.0); eGFR CKD-EPI 19.8 (>60)
[2021-05-18 05:22] LABS: ABS Eosinophils 0.1 10^3/ul (0-0.6); ABS Lymphocytes 0.9 10^3/ul (1.0-4.8); ABS Monocytes 0.6 10^3/ul (0-0.8); ABS Neutrophils 4.4 10^3/ul (1.5-7.7); Eosinophil % 2.1 %; Hematocrit 31 % (35-47); Hemoglobin 10.5 g/dL (12.0-16.0); Lymphocyte % 14.9 %; Mean Corpuscular HGB Conc 34 g/dL (31-36); Mean Corpuscular Hemoglobin 30 pg (27-31); Mean Corpuscular Volume 88 fL (80-97); Mean Platelet Volume 9.1 fL (7.4-10.4); Platelet Count 148 10^3/uL (150-450); Red Blood Count 3.52 10^6 /uL (3.70-4.87); Red Cell Distribution Width 16 % (10-15); White Blood Count 6.1 10^3/uL (3.5-10.8)
[2021-05-18 05:52] LABS: Calcium 8.9 mg/dL (8.6-10.3); Magnesium 2.3 mg/dL (1.9-2.7); Potassium 4.8 mmol/L (3.5-5.0); eGFR CKD-EPI 18.3 (>60)
[2021-05-18] MEDS: Heparin 5000 UNITS/ML 1 mL VIAL SUBCUT SCH ×3 (06:43→21:19)
[2021-05-18 16:49] LABS: Body Fluid Appearance Clear; Body Fluid Color Yellow; Body Fluid Source Pleural Fluid
[2021-05-18 19:54] LABS: Body Fluid WBC 219 /mcL
[2021-05-18 20:02] LABS: Body Fluid Mono 34 %; Body Fluid Other Cells 20; Body Fluid Total Cells Counted 200
[2021-05-18] MEDS: Nitroglycerin 0.2 mg/hr PATCH (5 mg) TRANSDERM SCH (21:18)
[2021-05-19] MEDS: Neomycin/Polymy/Dex OPTH.SUSP MAXITROL 0.1% 5 ML BOTH EYES SCH ×6 (01:53→20:35)
[2021-05-19 07:11] LABS: ABS Eosinophils 0.1 10^3/ul (0-0.6); ABS Lymphocytes 0.9 10^3/ul (1.0-4.8); ABS Monocytes 0.6 10^3/ul (0-0.8); ABS Neutrophils 3.3 10^3/ul (1.5-7.7); Eosinophil % 2.7 %; Hematocrit 28 % (35-47); Hemoglobin 9.5 g/dL (12.0-16.0); Lymphocyte % 17.3 %; Mean Corpuscular HGB Conc 34 g/dL (31-36); Mean Corpuscular Hemoglobin 30 pg (27-31); Mean Corpuscular Volume 89 fL (80-97); Mean Platelet Volume 9.6 fL (7.4-10.4); Nucleated Red Blood Cells % 0.1; Platelet Count 148 10^3/uL (150-450); Red Blood Count 3.15 10^6 /uL (3.70-4.87); Red Cell Distribution Width 15 % (10-15); White Blood Count 4.9 10^3/uL (3.5-10.8)
[2021-05-19 07:30] LABS: Magnesium 2.1 mg/dL (1.9-2.7)
[2021-05-19 09:38] LABS: Calcium 8.6 mg/dL (8.6-10.3); eGFR CKD-EPI 18.1 (>60)
[2021-05-19] MEDS: Heparin 5000 UNITS/ML 1 mL VIAL SUBCUT SCH ×3 (09:50→20:33)
[2021-05-19] MEDS ORDERED: Furosemide 20 mg/2 ml IV VIAL IV ONE (11:15)
[2021-05-19] MEDS: Nitroglycerin 0.2 mg/hr PATCH (5 mg) TRANSDERM SCH (20:34)
[2021-05-20] MEDS: Neomycin/Polymy/Dex OPTH.SUSP MAXITROL 0.1% 5 ML BOTH EYES SCH ×6 (02:39→21:09)
[2021-05-20] MEDS: Heparin 5000 UNITS/ML 1 mL VIAL SUBCUT SCH ×3 (04:55→21:09)
[2021-05-20 08:09] LABS: Calcium 8.7 mg/dL (8.6-10.3); Potassium 4.8 mmol/L (3.5-5.0); eGFR CKD-EPI 17.7 (>60)
[2021-05-20] MEDS ORDERED: Furosemide 20 mg/2 ml IV VIAL IV ONE (09:05)
[2021-05-20] MEDS: Nitroglycerin 0.2 mg/hr PATCH (5 mg) TRANSDERM SCH (19:57)
[2021-05-21] MEDS: Neomycin/Polymy/Dex OPTH.SUSP MAXITROL 0.1% 5 ML BOTH EYES SCH ×7 (01:28→21:05)
[2021-05-21] MEDS: Heparin 5000 UNITS/ML 1 mL VIAL SUBCUT SCH ×3 (05:25→20:06)
[2021-05-21 05:35] LABS: ABS Eosinophils 0.2 10^3/ul (0-0.6); ABS Monocytes 0.6 10^3/ul (0-0.8); Eosinophil % 3.2 %; Hematocrit 28 % (35-47); Hemoglobin 9.4 g/dL (12.0-16.0); Lymphocyte % 21.5 %; Mean Corpuscular HGB Conc 33 g/dL (31-36); Mean Corpuscular Hemoglobin 30 pg (27-31); Mean Corpuscular Volume 90 fL (80-97); Mean Platelet Volume 9.3 fL (7.4-10.4); Platelet Count 146 10^3/uL (150-450); Red Blood Count 3.17 10^6 /uL (3.70-4.87); Red Cell Distribution Width 16 % (10-15); White Blood Count 4.8 10^3/uL (3.5-10.8)
[2021-05-21 06:18] LABS: Calcium 8.6 mg/dL (8.6-10.3)
[2021-05-21 06:49] LABS: eGFR CKD-EPI 17.3 (>60)
[2021-05-21 10:23] LABS: Fluid Type, Amylase PLEURAL
[2021-05-21 10:24] LABS: Glucose, BF 125 mg/dL
[2021-05-21 10:25] LABS: Fluid Type, Protein, Total PLEURAL; Total Protein, BF 1.6 g/dL
[2021-05-21 10:27] LABS: Fluid Type: PLEURAL
[2021-05-21 10:31] LABS: Body Fluid Bilirubin 0.2 mg/dL; Fluid Type PLEURAL
[2021-05-21 10:40] LABS: Lactate Dehydrogenase, BF 59 U/L
[2021-05-21 11:06] LABS: Fluid Type: PLEURAL; Triglycerides (BF) < 9 mg/dL
[2021-05-21 11:52] LABS: High Sensitivity Troponin 1 Hr 10 pg/mL (<15)
[2021-05-21] MEDS: Nitroglycerin 0.2 mg/hr PATCH (5 mg) TRANSDERM SCH (20:04)
[2021-05-21] MEDS ORDERED: Metoclopramide 5 MG/ML VIAL (10 mg) IV PRN (23:35)
[2021-05-22] MEDS ORDERED: Lactated Ringers 500 ml BAG 500 ML IV ONE (01:44)
[2021-05-22] MEDS: Neomycin/Polymy/Dex OPTH.SUSP MAXITROL 0.1% 5 ML BOTH EYES SCH ×6 (02:00→22:54)
[2021-05-22] MEDS: Heparin 5000 UNITS/ML 1 mL VIAL SUBCUT SCH ×3 (05:26→22:51)
[2021-05-22 05:58] LABS: ABS Lymphocytes 0.2 10^3/ul (1.0-4.8); ABS Monocytes 0.7 10^3/ul (0-0.8); ABS Neutrophils 10.1 10^3/ul (1.5-7.7); Eosinophil % 0.1 %; Hematocrit 35 % (35-47); Hemoglobin 11.8 g/dL (12.0-16.0); Lymphocyte % 1.9 %; Mean Corpuscular HGB Conc 34 g/dL (31-36); Mean Corpuscular Hemoglobin 30 pg (27-31); Mean Corpuscular Volume 89 fL (80-97); Mean Platelet Volume 9.2 fL (7.4-10.4); Platelet Count 186 10^3/uL (150-450); Red Blood Count 3.96 10^6 /uL (3.70-4.87); Red Cell Distribution Width 16 % (10-15)
[2021-05-22 06:20] LABS: Albumin 3.9 g/dL (3.2-5.2); Albumin/Globulin Ratio 1.4 (1-3); Calcium 9.6 mg/dL (8.6-10.3); Globulin 2.7 g/dL (2-4); Total Bilirubin 0.7 mg/dL (0.2-1.0); Total Protein 6.6 g/dL (6.4-8.9)
[2021-05-22 06:38] LABS: Potassium 5.3 mmol/L (3.5-5.0)
[2021-05-22 06:59] LABS: C Reactive Protein 16.22 mg/L (<8.01)
[2021-05-22] MEDS ORDERED: cloNIDine 0.1 MG PATCH 0.1 MG/24 HR 7 DAY PATCH TRANSDERM SCH (09:00)
[2021-05-22] MEDS ORDERED: Senna TAB 8.6 mg TAB PO PRN (15:01)
[2021-05-22] MEDS ORDERED: Magnesium Hydroxide LIQ 30 ML UDC PO PRN ×2 (15:01→16:54)
[2021-05-22] MEDS ORDERED: Polyethylene Glycol 3350 17 GM PACKET PO ONE (15:24)
[2021-05-22 15:48] LABS: Calcium 9.1 mg/dL (8.6-10.3); eGFR CKD-EPI 18.2 (>60)
[2021-05-22 15:50] LABS: Carcinoembryonic Antigen 2.2 ng/mL (0.1-5.0)
[2021-05-22 15:58] LABS: Potassium 5.4 mmol/L (3.5-5.0)
[2021-05-22] MEDS ORDERED: Magnesium Hydroxide LIQ 30 ML UDC PO SCH (16:00)
[2021-05-22] MEDS ORDERED: SODIUM ZIRCONIUM CYCLOSILICATE 10 GM PACKET PO ONE (17:27)
[2021-05-22 21:22] LABS: Calcium 8.9 mg/dL (8.6-10.3); Potassium 4.7 mmol/L (3.5-5.0); eGFR CKD-EPI 17.6 (>60)
[2021-05-23] MEDS: Neomycin/Polymy/Dex OPTH.SUSP MAXITROL 0.1% 5 ML BOTH EYES SCH ×4 (03:07→14:48)
[2021-05-23] MEDS: Heparin 5000 UNITS/ML 1 mL VIAL SUBCUT SCH ×3 (06:01→21:02)
[2021-05-23 06:44] LABS: ABS Eosinophils 0.2 10^3/ul (0-0.6); ABS Lymphocytes 1.6 10^3/ul (1.0-4.8); ABS Monocytes 0.7 10^3/ul (0-0.8); ABS Neutrophils 4.3 10^3/ul (1.5-7.7); Eosinophil % 2.3 %; Hematocrit 30 % (35-47); Hemoglobin 10.4 g/dL (12.0-16.0); Mean Corpuscular HGB Conc 35 g/dL (31-36); Mean Corpuscular Hemoglobin 31 pg (27-31); Mean Corpuscular Volume 88 fL (80-97); Mean Platelet Volume 9.3 fL (7.4-10.4); Platelet Count 169 10^3/uL (150-450); Red Cell Distribution Width 16 % (10-15); White Blood Count 6.8 10^3/uL (3.5-10.8)
[2021-05-23 07:49] LABS: Calcium 9.1 mg/dL (8.6-10.3); Magnesium 1.9 mg/dL (1.9-2.7); Potassium 4.7 mmol/L (3.5-5.0)
[2021-05-24] MEDS: Heparin 5000 UNITS/ML 1 mL VIAL SUBCUT SCH (06:03)
[2021-05-24 06:57] LABS: ABS Eosinophils 0.2 10^3/ul (0-0.6); ABS Lymphocytes 1.4 10^3/ul (1.0-4.8); ABS Monocytes 0.6 10^3/ul (0-0.8); Eosinophil % 2.9 %; Hematocrit 27 % (35-47); Hemoglobin 9.3 g/dL (12.0-16.0); Lymphocyte % 26.9 %; Mean Corpuscular HGB Conc 34 g/dL (31-36); Mean Corpuscular Hemoglobin 30 pg (27-31); Mean Corpuscular Volume 89 fL (80-97); Mean Platelet Volume 9.7 fL (7.4-10.4); Nucleated Red Blood Cells % 0.1; Platelet Count 144 10^3/uL (150-450); Red Blood Count 3.09 10^6 /uL (3.70-4.87); Red Cell Distribution Width 16 % (10-15); White Blood Count 5.3 10^3/uL (3.5-10.8)
[2021-05-24 07:13] LABS: Calcium 8.7 mg/dL (8.6-10.3); Potassium 4.6 mmol/L (3.5-5.0); eGFR CKD-EPI 17.5 (>60)
[2021-05-24 14:05] VITALS: BP 160/97
== END 2021-05-24 13:20 | disposition home or self-care (01) | DRG 291 ==
LOC: ED 16:38 → SUATTDRO 22:13 → EDHOLD 22:13 → MEDTELE 05-15 01:11
PROVIDERS: ADMIT Hospitalist; ATTEND Internal Medicine

== ENCOUNTER 2022-04-13 13:17 | Inpatient (IN) ==
[2022-04-13 15:13] LABS: ABS Basophils 0.1 10^3/ul (0-0.2); ABS Eosinophils 0.1 10^3/ul (0-0.6); ABS Lymphocytes 0.8 10^3/ul (1.0-4.8); ABS Monocytes 0.7 10^3/ul (0-0.8); ABS Neutrophils 3.8 10^3/ul (1.5-7.7); Eosinophil % 1.9 %; Hematocrit 37 % (35-47); Lymphocyte % 14.7 %; Mean Corpuscular HGB Conc 32 g/dL (31-36); Mean Corpuscular Hemoglobin 29 pg (27-31); Mean Corpuscular Volume 89 fL (80-97); Mean Platelet Volume 8.6 fL (7.4-10.4); Nucleated Red Blood Cells % 0.2; Platelet Count 193 10^3/uL (150-450); Red Blood Count 4.19 10^6 /uL (3.70-4.87); Red Cell Distribution Width 16 % (10-15); White Blood Count 5.5 10^3/uL (3.5-10.8)
[2022-04-13 15:22] LABS: INR 1.05 (0.88-1.18)
[2022-04-13 15:56] LABS: ALT 27 U/L (7-52); AST 33 U/L (13-39); Albumin 3.9 g/dL (3.2-5.2); Albumin/Globulin Ratio 1.6 (1-3); Alkaline Phosphatase 181 U/L (35-149); Anion Gap 6 mmol/L (2-11); Blood Urea Nitrogen 40 mg/dL (6-24); CO2 Carbon Dioxide 26 mmol/L (22-32); Chloride 104 mmol/L (101-111); Cholesterol 281 mg/dL; Creatinine, Serum 1.87 mg/dL (0.51-0.95); Digoxin < 0.3 ng/ml (0.8-2.0); Globulin 2.5 g/dL (2-4); Glucose 106 mg/dL (70-100); HDL Cholesterol 83.1 mg/dL; LDL Cholesterol 174 mg/dL; Potassium 4.4 mmol/L (3.5-5.0); Sodium 136 mmol/L (135-145); Total Protein 6.4 g/dL (6.4-8.9); Triglycerides 120 mg/dL; eGFR CKD-EPI 25.6 (>60)
[2022-04-13] MEDS ORDERED: Enoxaparin 30 MG/0.3 ML SYR SUBCUT SCH (23:00)
[2022-04-14 01:14] LABS: Urine Appearance Clear; Urine Bilirubin Negative (Negative); Urine Blood Negative (Negative); Urine Color Straw; Urine Glucose Negative (Negative); Urine Ketones Negative (Negative); Urine Nitrite Negative (Negative); Urine Protein Negative (Negative); Urine Specific Gravity 1.005 (1.002-1.030); Urine Urobilinogen Negative (Negative)
[2022-04-14 06:26] LABS: ABS Eosinophils 0.1 10^3/ul (0-0.6); ABS Monocytes 0.6 10^3/ul (0-0.8); ABS Neutrophils 2.9 10^3/ul (1.5-7.7); Eosinophil % 2.7 %; Hematocrit 36 % (35-47); Hemoglobin 11.9 g/dL (12.0-16.0); Lymphocyte % 21.9 %; Mean Corpuscular HGB Conc 33 g/dL (31-36); Mean Corpuscular Hemoglobin 29 pg (27-31); Mean Corpuscular Volume 89 fL (80-97); Mean Platelet Volume 8.6 fL (7.4-10.4); Platelet Count 167 10^3/uL (150-450); Red Blood Count 4.04 10^6 /uL (3.70-4.87); Red Cell Distribution Width 15 % (10-15); White Blood Count 4.6 10^3/uL (3.5-10.8)
[2022-04-14 06:52] LABS: ALT 27 U/L (7-52); AST 33 U/L (13-39); Albumin 3.7 g/dL (3.2-5.2); Albumin/Globulin Ratio 1.7 (1-3); Alkaline Phosphatase 177 U/L (35-149); Anion Gap 9 mmol/L (2-11); Blood Urea Nitrogen 42 mg/dL (6-24); CO2 Carbon Dioxide 24 mmol/L (22-32); Chloride 105 mmol/L (101-111); Creatinine, Serum 1.83 mg/dL (0.51-0.95); Globulin 2.2 g/dL (2-4); Glucose 96 mg/dL (70-100); Magnesium 2.1 mg/dL (1.9-2.7); Sodium 138 mmol/L (135-145); Total Protein 5.9 g/dL (6.4-8.9); eGFR CKD-EPI 26.2 (>60)
[2022-04-15] MEDS: [UNRECOGNIZED DRUG - OTHER] BOTH EYES PRN ×2 (00:34→07:51)
[2022-04-16] MEDS ORDERED: Aspirin EC 81 mg TAB.EC (enteric coated) PO SCH (09:00)
[2022-04-16] MEDS ORDERED: NS 0.9% 500 ml BAG 500 ML IV ONE (09:39)
[2022-04-16 11:39] VITALS: BP 162/90
[2022-04-16 12:06] LABS: Digoxin < 0.3 ng/ml (0.8-2.0)
[2022-04-16] MEDS: cloNIDine 0.1 MG PATCH 0.1 MG/24 HR 7 DAY PATCH TRANSDERM SCH ×3 (12:25→14:15)
== END 2022-04-16 15:30 | disposition home or self-care (01) | DRG 69 ==
LOC: ED 13:17 → EDHOLD 18:39 → SUATTDRO 18:39 → MEDTELE 04-14 11:38
PROVIDERS: ADMIT Student in an Organized Health Care Education/Training Program; ATTEND Internal Medicine